=== PATIENT | male | born 1965 | race Caucasian/White ===

== ENCOUNTER 2018-05-22 14:52 | Inpatient (IN) | payer OTHER ==
[~2018-05-22] VITALS: Ht 170.2 cm; Wt 102.5 kg
[2018-05-22 16:35] VITALS: BP 127/74; PULSE 49; TEMP 36.9; O2SAT 97; Ht 170.2 cm; Wt 102.5 kg
--- NOTE | 2018-05-22 16:44 | Oncology Consultation ---
Oncology/Heme Consultation Date of Consultation: May 22, 2018. Attending Physician: Caden Tolentino D.O. Reason for Consultation: Immune thrombocytopenia purpura History of Present Illness Mr. Sen is a 53 year old man with a history of ITP treated in 2000. He received prednisone for an extended duration and had a complete response. He has been in remission until 05/17, when he presented with about a week of bleeding and petechiae and had a platelet count of 3K. He was bleeding and received multiple platelet transfusions, which were ineffective. He then received 4 daily doses of dexamethasone 40 mg PO. This raised his platelet count to 54K by 05/18. He was discharged and presented to my office for follow up today. He had a repeat CBC drawn that revealed a platelet count of 2K. I reviewed his smear and he had no platelet clumps or evidence of schistocytosis. He is not bleeding today and reports no nuisance bleeding, petechiae, or purpura. Social History Smoking Status: Never Smoker Drug Use: none Marital Status: Occupation Status: employed Allergies Coded Allergies: No Known Allergies (Verified , 12/16/02) Home Medications Scheduled Dexamethasone (Dexamethasone), 40 MG PO DAILY Review of Systems Constitutional: No fever, No fatigue ENT: No unusual epistaxis Respiratory: No cough, No hemoptysis Cardiovascular: No chest pain Abdomen: No pain, No nausea, No GI bleeding Musculoskeletal: No joint pain, No muscle pain Genitourinary - Male: No hematuria Neurologic: No weakness, No numbness/tingling Hematologic / Lymphatic: No abnormal bleeding/bruising Integumentary: No rash Physical Exam General Appearance: WD/WN, no apparent distress ENT: pharynx normal Respiratory/Chest: lungs clear Cardiovascular: regular rate, rhythm Abdomen/GI: non tender, soft Extremities/Musculoskelatal: no pedal edema Neurologic/Psych: no motor/sensory deficits, alert, oriented x 3 Skin: no rash Assessment & Plan 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 At this point, his best options for a long-lasting remission would be either splenectomy or, if he should refuse, Rituxan. Splenectomy tends to be more efficacious and to lead to longer-lasting remissions. Rituxan is best studied in patients who have undergone splenectomy, though there are data from smaller studies showing response rates in the pre- splenectomy population with occasional long-term remissions. He is young and generally healthy and I would prefer splenectomy in his case, but we can discuss this after we get his platelets up. I ordered IVIG 100 g IV x1. We may need to repeat the dose tomorrow or Friday, depending upon his response. I contacted the pharmacy and they will get started with this JOSE. He will need daily platelet counts and we should keep him admitted until we can confirm stable counts in the range above 30K. Platelet transfusions are generally ineffectual in patients with ITP and should be avoided, except in the setting of life-threatening hemorrhage. If he should bleed, I would consider high-dose IV Solu-Medrol. However, IVIG is generally very effective in this context, though the benefit does not last long.
[2018-05-22] MEDS ORDERED: ACETAMINOPHEN 325 MG TAB PO PRN (17:15)
[2018-05-22] MEDS ORDERED: ONDANSETRON INJ 2 MG/ML 2 ML VIAL IV PRN (17:15)
[2018-05-22] MEDS ORDERED: ZOLPIDEM TARTRATE 5 MG TAB PO PRN (17:15)
--- NOTE | 2018-05-22 17:20 | History and Physical ---
History & Physical Date & Time of Service: May 22, 2018 at 17:17 Chief Complaint: ITP Primary Care Physician: Lucien Lobo M.D. History of Present Illness Source: patient, spouse 53 yo M with PMHX of ITP since 2000, HLD, GERD presenting as direct admit from cancer center due to acute thrombocytopenia. Recently discharged from [facility] after course of daily dexamethasone, and on day of discharge 05/18 count was 54K. Today in Dr. Wilhelm's office had repeat CBC which showed a platelet count of 2K. At present, pt is accompanied by spouse, family and friends. C/o bruising under his right upper arm as well as on right palm. Past Medical/Surgical History Medical Problems: (1) Chronic ITP (idiopathic thrombocytopenic purpura) (2) Thrombocytopenia Social History Smoking Status: Never Smoker Drug Use: none Marital Status: Housing status: lives with family Occupational Status: employed Immunizations History of Influenza Vaccine: Unknown History of Tetanus Vaccine?: Unknown History of Pneumococcal: Unknown History of Hepatitis B Vaccine: Unknown Allergies Coded Allergies: No Known Allergies (Verified , 12/16/02) Home Medications Scheduled Dexamethasone (Dexamethasone), 40 MG PO DAILY Review of Systems ROS See HPI for pertinent positives and negatives. Otherwise denies new headache, vision change, chest pain, dyspnea, abdominal pain, loose or bloody stools, dysuria, or numbness tingling in extremities. Physical Exam Vital Signs Date Time Temp Pulse Resp B/P (MAP) Pulse Ox O2 Delivery O2 Flow Rate FiO2 05/22/18 16:35 36.9 49 18 127/74 97 Room Air GENERAL: Awake, alert, well-appearing, in no distress HENT: Normocephalic, atraumatic. EYES: Normal conjunctiva. Sclera non-icteric. NECK: Supple. Full range of motion. no JVD RESPIRATORY: Clear to auscultation. CARDIAC: Regular rate, normal rhythm. Extremities warm and well perfused. Pulses equal. ABDOMEN: Soft, non-distended. No tenderness to palpation. No rebound or guarding. No masses. LOWER EXTREMITIES: Calves are equal size bilaterally and non-tender. No edema. No discoloration. NEURO: No motor deficits noted. SKIN: + purpura/bruising on medial right upper forearm and right palm Impression Assessment and Plan 53 yo M with PMHX of ITP since 2001, HLD, GERD presenting as direct admit from cancer center due to acute thrombocytopenia. 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 Steroid refractory ITP, thrombocytopenia - IVIG 100gm run at 60 ml/hr for 30 min, if tolerated may increase gradually to a max of 480 ml/hr. - Options for second line therapy include splenectomy, rituximab, and thrombopoietin receptor agonists (TPO-Teresa). - per Hem/Onc management GERD - not currently on home medication - zantac prn HLD - not on chronic medications - low fat diet DVT: contraindicated due to low risk of clotting and very high risk of bleeding from chemical/mechanical anticoagulant means FEN/GI: regular diet. No fluids at this time. Dispo: med/surg Resident Physician Supervision Note: I was present with Dr. Andrews during the history and exam. I discussed the case with the resident and agree with the findings and plan as documented in the note. I also discussed the case with senior energy consultant at the time of admission. Patient without complaints. EXAM GEN: NAD. CV: regular RESP: CTA. Non labored respirations. ABD: non tender EXT: no edema. IMPRESSION/PLAN Steroid refractory ITP, thrombocytopenia I agree with plan as noted above. IVIG PLT transfusion and high dose IV steroids if evidence of bleeding. Discussed splenectomy as potential treatment once PLT count is normalized. Documented By: Caden Tolentino Advanced Directives Existing Living Will: No Existing Power of Learning Support Aide: No Resuscitation Status FULL VTE Prophylaxis Will order VTE Prophylaxis: No Reason for no VTE drug order: Contraindicated Reason no Mechanical VTE Order: Treatment not indicated Resident Tracking Resident Involvement: Resident Care Provided Care Provided: Adult Hospital Medicine
[2018-05-22] MEDS ORDERED: RANITIDINE HCL 150 MG TAB PO PRN (18:00)
[2018-05-22 18:02] VITALS: BP 131/85; PULSE 64; TEMP 36.8; O2SAT 98
[2018-05-22] MEDS: RANITIDINE HCL 150 MG TAB PO SCH (21:04)
[2018-05-22 23:13] VITALS: BP 111/73; PULSE 49; TEMP 37; O2SAT 96
[2018-05-23 07:19] VITALS: BP 113/71; PULSE 18; PULSE 51; TEMP 36.7; O2SAT 95
[2018-05-23 07:51] LABS: HEMATOCRIT 39.6 % (42-52); HEMOGLOBIN 13.6 g/dL (14.0-18.0); MEAN CELL VOLUME 86.3 fL (80-100); MEAN CORPUSCULAR HEMOGLOBIN 29.6 pg (25-34); MEAN CORPUSCULAR HGB CONC 34.3 g/dl (32-36); PLATELET COUNT 2 K/uL (130-400); RED CELL DISTRIBUTION WIDTH CV 13.5 % (11.5-14.5); RED CELL DISTRIBUTION WIDTH SD 42.2 fL (36.4-46.3); WHITE BLOOD COUNT 8.49 K/uL (4.8-10.8)
[2018-05-23] MEDS: RANITIDINE HCL 150 MG TAB PO SCH ×2 (07:51→20:43)
[2018-05-23 07:56] LABS: CREATININE 1.12 mg/dl (0.60-1.40)
[2018-05-23] MEDS ORDERED: DEXAMETHASONE 4 MG TAB PO SCH (09:00)
[2018-05-23] MEDS: METHYLPREDNISOLONE IV 60 MG in SYRINGE 0 ML IV SCH ×2 (10:31→20:43)
--- NOTE | 2018-05-23 10:59 | HEME/ONC PROGRESS NOTE ---
DATE: 05/23/2018 DIAGNOSIS: Refractory ITP. SUBJECTIVE: I had the pleasure of visiting with Yayo at bedside today. He received a course of IVIG overnight. Platelet count remains 2000. Clinically, he feels well and surprisingly showing no cutaneous signs of severe thrombocytopenia. I was contacted by the resident helping with his care and recommended addition of Solu-Medrol and an additional dose of IVIG. Long-term Dr. Wilhelm is planning for the patient to undergo a splenectomy. He feels well otherwise and offers no complaints. PHYSICAL EXAMINATION: GENERAL: He is in no acute distress. VITAL SIGNS: Temperature 36.7, pulse 51, respiratory rate 18, blood pressure 113/71. SKIN: Without rash or lesion. HEENT: Oral mucosa without palatal petechiae. NECK: Supple. HEART: Regular rate and rhythm. LUNGS: Clear to auscultation bilaterally. ABDOMEN: Soft, nontender, nondistended. EXTREMITIES: No clubbing, cyanosis or edema. NEUROLOGIC: Grossly intact. LABORATORY DATA: WBC count 8490, hemoglobin 13.6, platelet count 2000. Sodium 138, potassium 4.0, chloride 105, carbon dioxide 29, creatinine 1.12, BUN 16. IMPRESSION: Refractory immune thrombocytopenic purpura. PLAN: Yayo was seen by Dr. Wilhelm in the office yesterday, and unfortunately, his platelets plummeted despite receiving high-dose dexamethasone days prior. According to Dr. Wilhelm, Mr. Sen did initially respond; however, it is customary with many of these patients' relapses inevitable. Platelet count did not budge with initial course of IVIG and we will administer second course today and incorporate intravenous Solu-Medrol as well. Again, Dr. Wilhelm is planning surgical consultation for prophylactic splenectomy. Dr. Wilhelm will return tomorrow. Continue to follow his counts daily. If there is suspicion of bleeding, it would be reasonable to check his H and H every 12 hours. Overall, Yayo seems to be doing reasonably well and do not expect any difficulties. CHUY
[2018-05-23 13:32] LABS: HEMATOCRIT 38.4 % (42-52); HEMOGLOBIN 13.8 g/dL (14.0-18.0); MEAN CELL VOLUME 86.9 fL (80-100); MEAN CORPUSCULAR HEMOGLOBIN 31.2 pg (25-34); MEAN CORPUSCULAR HGB CONC 35.9 g/dl (32-36); NUCLEATED RED BLOOD CELL ABS 0.03 K/uL (0-0); PLATELET COUNT 3 K/uL (130-400); RED CELL DISTRIBUTION WIDTH CV 13.4 % (11.5-14.5); RED CELL DISTRIBUTION WIDTH SD 42.6 fL (36.4-46.3); WHITE BLOOD COUNT 8.83 K/uL (4.8-10.8)
[2018-05-23 15:28] VITALS: BP 133/79; PULSE 56; TEMP 36.7; O2SAT 97
--- NOTE | 2018-05-23 18:16 | Family Medicine Progress Note ---
Progress Note Date of Service May 23, 2018. Subjective SCAR overnight. Resting in bed. at bedside. Tolerating PO. Tolerating IVIG with no issues. ROS See HPI for pertinent positives and negatives. Otherwise denies new headache, vision change, chest pain, dyspnea, abdominal pain, bloody stools, or numbness tingling in extremities. Medications Current Inpatient Medications Medications (Trade) Dose Ordered Sig/Kristine Route Start Time Stop Time Status Last Admin Dose Admin Acetaminophen (Tylenol Tab) 650 mg Q4H PRN PO 05/22/18 17:15 06/21/18 17:14 Al Hydrox/Mg Hydrox/Simethicone (Maalox Max Susp) 15 ml Q4H PRN PO 05/22/18 17:15 06/21/18 17:14 Ondansetron HCl (Zofran Inj) 4 mg Q6H PRN IV 05/22/18 17:15 06/21/18 17:14 05/22/18 18:54 4 MG Zolpidem Tartrate (Ambien Tab) 5 mg HSZ PRN PO 05/22/18 17:15 06/21/18 17:14 Diphenhydramine HCl (Benadryl Cap) 25 mg Q4HWA PRN PO 05/22/18 18:00 06/21/18 17:59 Ranitidine HCl (zANTac TAB) 150 mg BID PO 05/22/18 21:00 06/21/18 17:59 05/23/18 07:51 150 MG Methylprednisolone Sodium Succinate 60 mg/Syringe 0.96 ml @ 1.5 mls/min BID IV 05/23/18 09:00 06/22/18 08:59 05/23/18 10:31 1.5 MLS/MIN Objective Vital Signs Date Time Temp Pulse Resp B/P (MAP) Pulse Ox O2 Delivery O2 Flow Rate FiO2 05/23/18 16:30 Room Air 05/23/18 15:28 36.7 56 18 133/79 (97) 97 Room Air 05/23/18 08:30 Room Air 05/23/18 07:19 36.7 51 18 113/71 (85) 95 Room Air 05/23/18 00:30 Room Air 05/22/18 23:13 37.0 49 18 111/73 (86) 96 Room Air Physical Exam Notes: GENERAL: Awake, alert, well-appearing, in no distress HENT: Normocephalic, atraumatic. EYES: Normal conjunctiva. Sclera non-icteric. NECK: Supple. Full range of motion. no JVD RESPIRATORY: Clear to auscultation. CARDIAC: Regular rate, normal rhythm. Extremities warm and well perfused. Pulses equal. ABDOMEN: Soft, non-distended. No tenderness to palpation. No rebound or guarding. No masses. NEURO: No motor deficits noted. SKIN: + purpura/bruising on medial right upper forearm and right palm Laboratory Results 05/23/18 12:48 05/23/18 06:28 Test 05/23/18 06:28 05/23/18 12:48 Prothrombin Time 10.0 SECONDS (9.0-12.0) Prothromb Time International Ratio 1.0 (0.9-1.1) Anion Gap 4.0 mmol/L (3-11) Est Creatinine Clear Calc Drug Dose 89.0 ml/min Estimated GFR () 87.7 Estimated GFR (Non- 75.7 BUN/Creatinine Ratio 13.9 (10-20) Calcium Level 8.0 mg/dl (8.5-10.1) Red Blood Count 4.42 M/uL (4.7-6.1) Mean Corpuscular Volume 86.9 fL (80-100) Mean Corpuscular Hemoglobin 31.2 pg (25-34) Mean Corpuscular Hemoglobin Concent 35.9 g/dl (32-36) RDW Standard Deviation 42.6 fL (36.4-46.3) RDW Coefficient of Variation 13.4 % (11.5-14.5) Nucleated RBC Absolute Count (auto) 0.03 K/uL (0-0) Nucleated Red Blood Cells % 0.4 % Assessment and Plan 53 yo M with PMHX of ITP since 2000, HLD, GERD presenting as direct admit from cancer center due to acute thrombocytopenia. 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 Steroid refractory ITP, thrombocytopenia - Per onc recs, ordered second round of IVIG 100gm today. - IV solumedrol 60mg q8h - Options for second line therapy include splenectomy, rituximab, and thrombopoietin receptor agonists (TPO-Teresa). GERD - not currently on home medication - zantac 150 mg PO BID to prophylax as well HLD - not on chronic medications - low fat diet DVT: contraindicated due to low risk of clotting and very high risk of bleeding from chemical/mechanical anticoagulant means FEN/GI: regular diet. No fluids indicated at this time. Dispo: med/surg Resident Physician Supervision Note: I was present with Dr. Andrews during the history and exam. I discussed the case with the resident and agree with the findings and plan as documented in the note. Any exceptions or clarifications are listed here: 53 y/o male with history of ITP admitted with profound thrombocytopenia, minimal improvement S/P one dose of IVIG. PLAN 1) second dose IVIG 100g today. 2) Add IV steroids 3) Continue H2B 4) Discuss with hematology Documented By: Caden Tolentino Continued [facility] stay due to: multiple IV medications needed Resident Tracking Resident Involvement: Resident Care Provided Care Provided: Adult Hospital Medicine
[2018-05-24] VITALS: BP 125/73; PULSE 59; TEMP 36.7; O2SAT 98
[2018-05-24 07:27] VITALS: BP 123/77; PULSE 68; TEMP 36.5; O2SAT 95
[2018-05-24 07:48] LABS: HEMATOCRIT 39.6 % (42-52); HEMOGLOBIN 13.7 g/dL (14.0-18.0); MEAN CELL VOLUME 86.1 fL (80-100); MEAN CORPUSCULAR HEMOGLOBIN 29.8 pg (25-34); MEAN CORPUSCULAR HGB CONC 34.6 g/dl (32-36); PLATELET COUNT 10 K/uL (130-400); RED CELL DISTRIBUTION WIDTH CV 13.3 % (11.5-14.5); RED CELL DISTRIBUTION WIDTH SD 41.4 fL (36.4-46.3); WHITE BLOOD COUNT 17.54 K/uL (4.8-10.8)
[2018-05-24 07:54] LABS: CALCIUM 8.3 mg/dl (8.5-10.1); CREATININE 1.2 mg/dl (0.60-1.40); POTASSIUM 4.2 mmol/L (3.5-5.1)
[2018-05-24] MEDS: METHYLPREDNISOLONE IV 60 MG in SYRINGE 0 ML IV SCH ×2 (08:24→21:17)
[2018-05-24] MEDS: RANITIDINE HCL 150 MG TAB PO SCH ×2 (08:24→21:18)
--- NOTE | 2018-05-24 10:42 | Hematology/Oncology Prog Note ---
Hematology/Onc Progress Note Date of Service May 24, 2018. Diagnoses Refractory ITP Medications Medications Administered Medications (Trade) Dose Ordered Sig/Kristine Route Start Time Stop Time Status Last Admin Dose Admin Immune Globulin 20 gm/Empty Bag 200 ml @ 0 mls/hr 1700,1800,1900,2000,2100 IV 05/22/18 17:00 05/22/18 23:59 DC 05/22/18 23:00 480 MLS/HR Ondansetron HCl (Zofran Inj) 4 mg Q6H PRN IV 05/22/18 17:15 06/21/18 17:14 05/22/18 18:54 4 MG Ranitidine HCl (zANTac TAB) 150 mg BID PO 05/22/18 21:00 06/21/18 17:59 05/24/18 08:24 150 MG Immune Globulin 20 gm/Empty Bag 200 ml @ 0 mls/hr TODAY@1000,1100,1200,1300,1400 IV 05/23/18 10:00 05/23/18 14:01 DC 05/23/18 16:19 200 MLS/HR Methylprednisolone Sodium Succinate 60 mg/Syringe 0.96 ml @ 1.5 mls/min BID IV 05/23/18 09:00 06/22/18 08:59 05/24/18 08:24 1.5 MLS/MIN Subjective Mr. Sen is looking well. He denies any bleeding or excessive bruising. He received a second dose of IVIG yesterday and started IV steroids. Review of Systems: Constitutional: No weakness, No fatigue ENT: No unusual epistaxis Respiratory: No cough, No shortness of breath, No hemoptysis Cardiovascular: No chest pain Abdomen: No pain, No GI bleeding Male : No hematuria Neurologic: No weakness Heme: No abnormal bleeding/bruising Vital Signs Vital Signs Past 12 Hours Date Time Temp Pulse Resp B/P (MAP) Pulse Ox O2 Delivery O2 Flow Rate FiO2 05/24/18 09:15 Room Air 05/24/18 07:27 36.5 68 18 123/77 (92) 95 Room Air 05/24/18 00:00 36.7 59 20 125/73 (90) 98 Room Air 05/24/18 00:00 Room Air Physical Exam Constitutional: General Apperance: heathly-appearing Level of Distress: NAD Psychiatric: Mental Status: active & alert Orientation: oriented except where noted ENMT: pharynx normal (no purpura) Lungs: Auscuitation: breath sounds normal Cardiovascular: Heart Auscultation: RRR Abdomen: Inspection & Palpation: soft, no tenderness, guarding & rebound Extremities: no edema Laboratory Last 24 Hours Test 05/23/18 12:48 05/24/18 07:00 White Blood Count 8.83 K/uL 17.54 K/uL Red Blood Count 4.42 M/uL 4.60 M/uL Hemoglobin 13.8 g/dL 13.7 g/dL Hematocrit 38.4 % 39.6 % Mean Corpuscular Volume 86.9 fL 86.1 fL Mean Corpuscular Hemoglobin 31.2 pg 29.8 pg Mean Corpuscular Hemoglobin Concent 35.9 g/dl 34.6 g/dl RDW Standard Deviation 42.6 fL 41.4 fL RDW Coefficient of Variation 13.4 % 13.3 % Platelet Count 3 K/uL 10 K/uL Nucleated RBC Absolute Count (auto) 0.03 K/uL Nucleated Red Blood Cells % 0.4 % Sodium Level 136 mmol/L Potassium Level 4.2 mmol/L Chloride Level 107 mmol/L Carbon Dioxide Level 23 mmol/L Anion Gap 6.0 mmol/L Blood Urea Nitrogen 30 mg/dl Creatinine 1.20 mg/dl Est Creatinine Clear Calc Drug Dose 83.1 ml/min Estimated GFR () 80.7 Estimated GFR (Non- 69.6 BUN/Creatinine Ratio 25.4 Random Glucose 104 mg/dl Calcium Level 8.3 mg/dl Assessment & Plan His platelets are up a bit, which is encouraging. We should see the full effect of the IVIG in the next 24-48 hours. If he rises to a point where surgery is feasible, I would plan on splenectomy. If that does not happen, we will need to consider other options, like Rituxan or TPO agonists. We can continue with the steroids for now. Please continue daily platelet counts and avoid transfusions except in life-threatening emergencies.
--- NOTE | 2018-05-24 14:43 | Family Medicine Progress Note ---
Progress Note Date of Service May 24, 2018. Subjective Pt conversant, sitting over side of bed, friends/family at bedside. Tolerating PO. Denies new bleeding or bloody stools. Says IVIG made him nauseous yesterday but that is now resolved. Tolerating PO. ROS See HPI for pertinent positives and negatives. Otherwise denies new headache, vision change, chest pain, dyspnea, or abdominal pain. Medications Current Inpatient Medications Medications (Trade) Dose Ordered Sig/Kristine Route Start Time Stop Time Status Last Admin Dose Admin Acetaminophen (Tylenol Tab) 650 mg Q4H PRN PO 05/22/18 17:15 06/21/18 17:14 Al Hydrox/Mg Hydrox/Simethicone (Maalox Max Susp) 15 ml Q4H PRN PO 05/22/18 17:15 06/21/18 17:14 Ondansetron HCl (Zofran Inj) 4 mg Q6H PRN IV 05/22/18 17:15 06/21/18 17:14 05/22/18 18:54 4 MG Zolpidem Tartrate (Ambien Tab) 5 mg HSZ PRN PO 05/22/18 17:15 06/21/18 17:14 Diphenhydramine HCl (Benadryl Cap) 25 mg Q4HWA PRN PO 05/22/18 18:00 06/21/18 17:59 Ranitidine HCl (zANTac TAB) 150 mg BID PO 05/22/18 21:00 06/21/18 17:59 05/24/18 08:24 150 MG Methylprednisolone Sodium Succinate 60 mg/Syringe 0.96 ml @ 1.5 mls/min BID IV 05/23/18 09:00 06/22/18 08:59 05/24/18 08:24 1.5 MLS/MIN Objective Vital Signs Date Time Temp Pulse Resp B/P (MAP) Pulse Ox O2 Delivery O2 Flow Rate FiO2 05/24/18 09:15 Room Air 05/24/18 07:27 36.5 68 18 123/77 (92) 95 Room Air 05/24/18 00:00 36.7 59 20 125/73 (90) 98 Room Air 05/24/18 00:00 Room Air 05/23/18 16:30 Room Air 05/23/18 15:28 36.7 56 18 133/79 (97) 97 Room Air Physical Exam Notes: GENERAL: Awake, alert, well-appearing, in no distress HENT: Normocephalic, atraumatic. EYES: Normal conjunctiva. Sclera non-icteric. NECK: Supple. Full range of motion. RESPIRATORY: Clear to auscultation. CARDIAC: Regular rate, normal rhythm. Extremities warm and well perfused. Pulses equal. ABDOMEN: Soft, non-distended. No tenderness to palpation. No rebound or guarding. No masses. NEURO: No motor deficits noted. SKIN: + purpura/bruising on medial right upper forearm and right palm Laboratory Results 05/24/18 07:00 05/24/18 07:00 Test 05/24/18 07:00 Red Blood Count 4.60 M/uL (4.7-6.1) Mean Corpuscular Volume 86.1 fL (80-100) Mean Corpuscular Hemoglobin 29.8 pg (25-34) Mean Corpuscular Hemoglobin Concent 34.6 g/dl (32-36) RDW Standard Deviation 41.4 fL (36.4-46.3) RDW Coefficient of Variation 13.3 % (11.5-14.5) Anion Gap 6.0 mmol/L (3-11) Est Creatinine Clear Calc Drug Dose 83.1 ml/min Estimated GFR () 80.7 Estimated GFR (Non- 69.6 BUN/Creatinine Ratio 25.4 (10-20) Calcium Level 8.3 mg/dl (8.5-10.1) Assessment and Plan 53 yo M with PMHX of ITP since 2000, HLD, GERD presenting as direct admit from cancer center due to acute thrombocytopenia. 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 Steroid refractory ITP, thrombocytopenia - s/p IVIG 1 gm x 2. Tolerated well. PLT increased to 10 which is expected transitory increase. - IV solumedrol 60mg q8h - Per discussion with hem/onc, awaiting curative splenectomy - goal plt count to be at least 50K. Will continue to monitor. GERD - zantac 150 mg PO BID HLD - not on chronic medications - low fat diet DVT: contraindicated due to low risk of clotting and very high risk of bleeding from chemical/mechanical anticoagulant means FEN/GI: regular diet. No fluids indicated at this time. Dispo: med/surg Resident Physician Supervision Note: I was present with Dr. Andrews during the history and exam. I discussed the case with the resident and agree with the findings and plan as documented in the note. Any exceptions or clarifications are listed here: He feels much better today; the fatigue and nausea that he had yesterday has resolved, he thinks it may been secondary to the IVIG. His platelet count is up to 10. IMP ITP PLAN Continue IV steroids Continue H2 tad Current plan is for splenectomy We will discuss and/or consult general surgery early next week Documented By: Caden Tolentino Continued [facility] stay due to: multiple IV medications needed Resident Tracking Resident Involvement: Resident Care Provided Care Provided: Adult Hospital Medicine
[2018-05-24 15:00] VITALS: BP 130/78; PULSE 60; TEMP 36.5; O2SAT 97
[2018-05-24 23:00] VITALS: BP 148/67; PULSE 60; TEMP 36.7; O2SAT 97
[2018-05-25 07:54] VITALS: BP 123/74; PULSE 57; TEMP 36.7; O2SAT 97
[2018-05-25 07:56] LABS: HEMATOCRIT 38.7 % (42-52); HEMOGLOBIN 13.4 g/dL (14.0-18.0); MEAN CELL VOLUME 87.6 fL (80-100); MEAN CORPUSCULAR HEMOGLOBIN 30.3 pg (25-34); MEAN CORPUSCULAR HGB CONC 34.6 g/dl (32-36); PLATELET COUNT 6 K/uL (130-400); RED CELL DISTRIBUTION WIDTH CV 13.7 % (11.5-14.5); RED CELL DISTRIBUTION WIDTH SD 44.1 fL (36.4-46.3); WHITE BLOOD COUNT 16.93 K/uL (4.8-10.8)
[2018-05-25 08:07] LABS: BASO % 0.1 %; BASO ABS # 0.01 K/uL (0-0.2); LYMPH % 5.7 %; LYMPH ABS # 0.96 K/uL (1.2-3.4); MONO % 4.7 %; MONO ABS # 0.79 K/uL (0.11-0.59); NEUT % 87.7 %; NEUT ABS # 14.87 K/uL (1.4-6.5)
[2018-05-25] MEDS: RANITIDINE HCL 150 MG TAB PO SCH ×2 (08:19→21:09)
[2018-05-25] MEDS: METHYLPREDNISOLONE IV 60 MG in SYRINGE 0 ML IV SCH ×2 (08:19→21:09)
--- NOTE | 2018-05-25 09:59 | HEME/ONC PROGRESS NOTE ---
DATE: 05/25/2018 DIAGNOSIS: Refractory ITP. SUBJECTIVE: Yayo was seen and examined at bedside again today. He is on hospital day #3 with refractory ITP. Over the weekend, received a combination of intravenous immunoglobulin and continues on IV corticosteroids. I was optimistic when I saw his platelet count rise to 10,000, but unfortunately has retreated to 6000 this morning. Yayo is Dr. Wilhelm's patient and I believe the plan moving forward is a laparoscopic splenectomy at this point. I will ask the primary service to request Dr. Valenzuela perform the procedure. Clinically, he continues to feel well and is devoid of complaint. PHYSICAL EXAMINATION: GENERAL: He is in no acute distress. VITAL SIGNS: Temperature 36.7, pulse 57, respiratory rate 18, blood pressure 123/74. SKIN: Without rash or lesion. HEENT: Oral mucosa without erythema or ulceration. NECK: Supple. HEART: Regular rate and rhythm. LUNGS: Clear to auscultation bilaterally. ABDOMEN: Soft, nontender, nondistended. EXTREMITIES: No clubbing, cyanosis or edema. NEUROLOGIC: Grossly intact. LABORATORY DATA: WBC count 16,930; hemoglobin 13.4; platelet count 6000. Sodium 136, potassium 4.2, chloride 107, carbon dioxide 23, BUN 30, creatinine 1.20. These chemistries are actually from 05/24/2018. IMPRESSION: Refractory ITP. PLAN: We will ask Dr. Valenzuela to visit with Yayo and his today to discuss laparoscopic splenectomy. Yayo has received 2 courses of IVIG and has been on Solu-Medrol for the past 24 hours. I anticipate a transient rise. It will be up to Dr. Valenzuela and his comfort level on moving forward with surgery when platelets are consistently on the rise. Unfortunately, the recovery of platelets is unpredictable and conceivably this gentleman may oscillate for several days. We will continue to follow him during his hospital stay. Thank you for assisting us in the care of this very pleasant gentleman. CHUY
--- NOTE | 2018-05-25 13:09 | Family Medicine Progress Note ---
Progress Note Date of Service May 25, 2018. Subjective Pt is understandably frustrated today given plt count going from 10 yesterday to 6 today. He asks questions about treatment, asks what he was given at last admission that worked so well and why this is taking longer this time. I discussed his lab results, and we looked at last admission's labs as well. Explained that steroids are similar across classes. ROS See HPI for pertinent positives and negatives. Otherwise denies loose or bloody stools Medications Current Inpatient Medications Medications (Trade) Dose Ordered Sig/Kristine Route Start Time Stop Time Status Last Admin Dose Admin Acetaminophen (Tylenol Tab) 650 mg Q4H PRN PO 05/22/18 17:15 06/21/18 17:14 Al Hydrox/Mg Hydrox/Simethicone (Maalox Max Susp) 15 ml Q4H PRN PO 05/22/18 17:15 06/21/18 17:14 Ondansetron HCl (Zofran Inj) 4 mg Q6H PRN IV 05/22/18 17:15 06/21/18 17:14 05/22/18 18:54 4 MG Zolpidem Tartrate (Ambien Tab) 5 mg HSZ PRN PO 05/22/18 17:15 06/21/18 17:14 Diphenhydramine HCl (Benadryl Cap) 25 mg Q4HWA PRN PO 05/22/18 18:00 06/21/18 17:59 Ranitidine HCl (zANTac TAB) 150 mg BID PO 05/22/18 21:00 06/21/18 17:59 05/25/18 08:19 150 MG Methylprednisolone Sodium Succinate 60 mg/Syringe 0.96 ml @ 1.5 mls/min BID IV 05/23/18 09:00 06/22/18 08:59 05/25/18 08:19 1.5 MLS/MIN Objective Vital Signs Date Time Temp Pulse Resp B/P (MAP) Pulse Ox O2 Delivery O2 Flow Rate FiO2 05/25/18 08:00 Room Air 05/25/18 07:54 36.7 57 18 123/74 (90) 97 Room Air 05/25/18 00:00 Room Air 05/24/18 23:00 36.7 60 18 148/67 (94) 97 Room Air 05/24/18 16:15 Room Air 05/24/18 15:00 36.5 60 16 130/78 (95) 97 Room Air Physical Exam Notes: GENERAL: Awake, alert, well-appearing. HENT: Normocephalic, atraumatic. EYES: Normal conjunctiva. Sclera non-icteric. EOMI NECK: Supple. Full range of motion. no JVD RESPIRATORY: normal work of breathing NEURO: No motor deficits noted. SKIN: No rash or jaundice noted. Laboratory Results 05/25/18 07:12 Red Blood Count 4.42, Mean Corpuscular Volume 87.6, Mean Corpuscular Hemoglobin 30.3, Mean Corpuscular Hemoglobin Concent 34.6, Neutrophils (%) (Auto) 87.7, Lymphocytes (%) (Auto) 5.7, Monocytes (%) (Auto) 4.7, Eosinophils (%) (Auto) 0.0 , Basophils (%) (Auto) 0.1, Neutrophils # (Auto) 14.87, Lymphocytes # (Auto) 0.96, Monocytes # (Auto) 0.79, Eosinophils # (Auto) 0.00, Basophils # (Auto) 0.01 Test 05/25/18 07:12 White Blood Count 16.93 K/uL (4.8-10.8) Red Blood Count 4.42 M/uL (4.7-6.1) Hemoglobin 13.4 g/dL (14.0-18.0) Hematocrit 38.7 % (42-52) Mean Corpuscular Volume 87.6 fL (80-100) Mean Corpuscular Hemoglobin 30.3 pg (25-34) Mean Corpuscular Hemoglobin Concent 34.6 g/dl (32-36) Platelet Count 6 K/uL (130-400) Neutrophils (%) (Auto) 87.7 % Lymphocytes (%) (Auto) 5.7 % Monocytes (%) (Auto) 4.7 % Eosinophils (%) (Auto) 0.0 % Basophils (%) (Auto) 0.1 % Neutrophils # (Auto) 14.87 K/uL (1.4-6.5) Lymphocytes # (Auto) 0.96 K/uL (1.2-3.4) Monocytes # (Auto) 0.79 K/uL (0.11-0.59) Eosinophils # (Auto) 0.00 K/uL (0-0.5) Basophils # (Auto) 0.01 K/uL (0-0.2) RDW Standard Deviation 44.1 fL (36.4-46.3) RDW Coefficient of Variation 13.7 % (11.5-14.5) Immature Granulocyte % (Auto) 1.8 % Immature Granulocyte # (Auto) 0.30 K/uL (0.00-0.02) Platelet Estimate SIGNIFIC DECREASED Assessment and Plan 53 yo M with PMHX of ITP since 2000, HLD, GERD presenting as direct admit from cancer center due to acute thrombocytopenia. 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 Steroid refractory ITP, thrombocytopenia - s/p IVIG 1 gm x 2. - currently plt are 6. Yesterday was 10. Per heme/onc plt's expected to vascillate, IVIG effect transitory however. Order placed for consult to gen surg - Dr. Valenzuela, for curative splenectomy. - continue IV solumedrol 60mg BID per heme/onc - awaiting curative splenectomy - goal plt count to be at least 50K. Will continue to monitor. GERD - zantac 150 mg PO BID HLD - not on chronic medications - low fat diet DVT: contraindicated due to low risk of clotting and very high risk of bleeding from chemical/mechanical anticoagulant means FEN/GI: regular diet. No fluids indicated at this time. Dispo: med/surg Resident Physician Supervision Note: I interviewed and examined the patient. Discussed with Dr. Andrews and agree with findings and plan as documented in the note. Any exceptions or clarifications are listed here: None Documented By: Juan Askew feeling ok physically, but very frustrated with lack of progress vitals noted nad breathing unlabored bruising noted recurrent/refractory ITP - probable splenectomy once plt rebound. otherwise as above. offered empathy and support Continued [facility] stay due to: other (severe thrombocytopenia) Resident Tracking Resident Involvement: Resident Care Provided Care Provided: Adult Hospital Medicine
[2018-05-25 15:39] VITALS: BP 129/72; PULSE 60; TEMP 36.8; O2SAT 95
--- NOTE | 2018-05-25 15:49 | Medical Consult ---
Consultation Date of Consultation: May 25, 2018. Attending Physician: Juan Askew D.O. History of Present Illness 53 y/o male with history of ITP 17 years ago responded to treatment with steroids and did have not any other symptoms or treatment until about 2 weeks ago when he became fatigued and easy bruising following a scuba dive. He was seen at [facility] and transferred to [facility] on 05/17 with plt 3,000. Responded to steroid treatment and discharged on oral Decadron on 05/18 with plt 54,000. Then readmitted on 05/22 during clinic visit with plt 2,000. Response to IVIG has been limited, he is now on IV solu-medrol. Past Medical/Surgical History Medical problems: ITP GERD Surgical history: right inguinal hernia right thumb partial amputation (traumatic) Social History Smoking Status: Never Smoker Drug Use: none Marital Status: Occupation Status: employed Allergies Coded Allergies: No Known Allergies (Verified , 12/16/02) Current Inpatient Medications Current Inpatient Medications Medications (Trade) Dose Ordered Sig/Kristine Route Start Time Stop Time Status Last Admin Dose Admin Acetaminophen (Tylenol Tab) 650 mg Q4H PRN PO 05/22/18 17:15 06/21/18 17:14 Al Hydrox/Mg Hydrox/Simethicone (Maalox Max Susp) 15 ml Q4H PRN PO 05/22/18 17:15 06/21/18 17:14 Ondansetron HCl (Zofran Inj) 4 mg Q6H PRN IV 05/22/18 17:15 06/21/18 17:14 05/22/18 18:54 4 MG Zolpidem Tartrate (Ambien Tab) 5 mg HSZ PRN PO 05/22/18 17:15 06/21/18 17:14 Diphenhydramine HCl (Benadryl Cap) 25 mg Q4HWA PRN PO 05/22/18 18:00 06/21/18 17:59 Ranitidine HCl (zANTac TAB) 150 mg BID PO 05/22/18 21:00 06/21/18 17:59 05/25/18 08:19 150 MG Methylprednisolone Sodium Succinate 60 mg/Syringe 0.96 ml @ 1.5 mls/min BID IV 05/23/18 09:00 06/22/18 08:59 05/25/18 08:19 1.5 MLS/MIN Review of Systems Constitutional: No fever, No chills Abdomen: No pain, No nausea, No GI bleeding Physical Exam Date Time Temp Pulse Resp B/P (MAP) Pulse Ox O2 Delivery O2 Flow Rate FiO2 05/25/18 08:00 Room Air 05/25/18 07:54 36.7 57 18 123/74 (90) 97 Room Air 05/25/18 00:00 Room Air 05/24/18 23:00 36.7 60 18 148/67 (94) 97 Room Air 05/24/18 16:15 Room Air General Appearance: WD/WN, no apparent distress Respiratory/Chest: no respiratory distress, no accessory muscle use Abdomen/GI: non tender, soft, no organomegaly Neurologic/Psych: alert, oriented x 3 Skin: normal color, warm/dry Laboratory Results Last 24 Hours Test 05/25/18 07:12 White Blood Count 16.93 K/uL Red Blood Count 4.42 M/uL Hemoglobin 13.4 g/dL Hematocrit 38.7 % Mean Corpuscular Volume 87.6 fL Mean Corpuscular Hemoglobin 30.3 pg Mean Corpuscular Hemoglobin Concent 34.6 g/dl Platelet Count 6 K/uL Neutrophils (%) (Auto) 87.7 % Lymphocytes (%) (Auto) 5.7 % Monocytes (%) (Auto) 4.7 % Eosinophils (%) (Auto) 0.0 % Basophils (%) (Auto) 0.1 % Neutrophils # (Auto) 14.87 K/uL Lymphocytes # (Auto) 0.96 K/uL Monocytes # (Auto) 0.79 K/uL Eosinophils # (Auto) 0.00 K/uL Basophils # (Auto) 0.01 K/uL RDW Standard Deviation 44.1 fL RDW Coefficient of Variation 13.7 % Immature Granulocyte % (Auto) 1.8 % Immature Granulocyte # (Auto) 0.30 K/uL Platelet Estimate SIGNIFIC DECREASED Assessment & Plan Refractory ITP Will discuss further with hematology. Would tentatively plan for laparoscopic splenectomy when platelets are at least 20,000 but hopefully will respond to again to >50,000.
[2018-05-25 16:00] VITALS: O2SAT 95
[2018-05-26] VITALS: BP 129/68; PULSE 54; TEMP 36.7; O2SAT 97
[2018-05-26 07:42] LABS: HEMATOCRIT 40.7 % (42-52); HEMOGLOBIN 13.6 g/dL (14.0-18.0); MEAN CELL VOLUME 87.5 fL (80-100); MEAN CORPUSCULAR HEMOGLOBIN 29.2 pg (25-34); MEAN CORPUSCULAR HGB CONC 33.4 g/dl (32-36); RED CELL DISTRIBUTION WIDTH SD 45.2 fL (36.4-46.3); WHITE BLOOD COUNT 15.49 K/uL (4.8-10.8)
[2018-05-26 07:45] VITALS: BP 127/73; PULSE 56; TEMP 36.7; O2SAT 96
[2018-05-26] MEDS: METHYLPREDNISOLONE IV 60 MG in SYRINGE 0 ML IV SCH ×2 (08:03→21:08)
[2018-05-26] MEDS: RANITIDINE HCL 150 MG TAB PO SCH ×2 (08:03→21:08)
[2018-05-26 08:11] LABS: PLATELET COUNT 3 K/uL (130-400)
[2018-05-26 08:12] LABS: BASO % 0.1 %; BASO ABS # 0.02 K/uL (0-0.2); IG# 0.45 K/uL (0.00-0.02); LYMPH % 8.3 %; LYMPH ABS # 1.29 K/uL (1.2-3.4); MONO % 5.7 %; MONO ABS # 0.89 K/uL (0.11-0.59); NEUT ABS # 12.84 K/uL (1.4-6.5)
--- NOTE | 2018-05-26 08:19 | HEME/ONC PROGRESS NOTE ---
DATE: 05/26/2018 DIAGNOSES: Refractory ITP. SUBJECTIVE: Yayo was seen and examined at bedside again today. Platelet count is pending at the time of the dictation. Appreciate general surgery's input. They are planning for laparoscopic splenectomy if and when the patient's platelets exceed 20,000. Yayo expressed some frustration with the refractoriness of his clinical situation. I asked him to be a bit more patience moving forward. Clinically, he is doing well, offers no complaints and there is no external evidence of bleeding. PHYSICAL EXAMINATION: GENERAL: He is in no acute distress. VITAL SIGNS: Temperature 36.7, pulse 56, respiratory rate 16, blood pressure 127/73. SKIN: Few scattered bruises, otherwise no rash. HEENT: Oral mucosa without erythema or ulceration. NECK: Supple. HEART: Regular rate and rhythm. LUNGS: Clear to auscultation. ABDOMEN: Soft, nontender, nondistended. EXTREMITIES: No calf tenderness or swelling. No clubbing, cyanosis or edema. NEUROLOGIC: Grossly intact. LABORATORY DATA: Platelet count pending. WBCs 15,490, hemoglobin 13.6. IMPRESSION: Refractory ITP. PLAN: Will move forward with laparoscopic splenectomy, continue corticosteroids as ordered. If his platelet count remains refractory, may consider WinRho transiently. Again, Yayo is a bit frustrated and asked him for a bit more patience as I am cautiously optimistic, his platelet count will meet threshold to undergo a safe procedure. We will visit with Yayo again tomorrow. Thank you again for assisting us in the care of this very pleasant gentleman.
[2018-05-26] MEDS ORDERED: NURSING VERBAL MED ORDER ONE (09:00)
--- NOTE | 2018-05-26 10:43 | Family Medicine Progress Note ---
Progress Note Date of Service May 26, 2018. Subjective Discussed with patient that his platelet count has gone back down to 3. He spoke with surgical service, he says they said they would consider a lower threshold for surgery. He says will be in later so she can be present for conversation with Heme/onc. Tolerating po, voiding appropriately. FOBT came back negative today. Denies any new bruising or bleeding ROS See HPI for pertinent positives and negatives. Otherwise denies new headache, loose or bloody stools. Medications Current Inpatient Medications Medications (Trade) Dose Ordered Sig/Kristine Route Start Time Stop Time Status Last Admin Dose Admin Acetaminophen (Tylenol Tab) 650 mg Q4H PRN PO 05/22/18 17:15 06/21/18 17:14 Al Hydrox/Mg Hydrox/Simethicone (Maalox Max Susp) 15 ml Q4H PRN PO 05/22/18 17:15 06/21/18 17:14 Ondansetron HCl (Zofran Inj) 4 mg Q6H PRN IV 05/22/18 17:15 06/21/18 17:14 05/22/18 18:54 4 MG Zolpidem Tartrate (Ambien Tab) 5 mg HSZ PRN PO 05/22/18 17:15 06/21/18 17:14 Diphenhydramine HCl (Benadryl Cap) 25 mg Q4HWA PRN PO 05/22/18 18:00 06/21/18 17:59 Ranitidine HCl (zANTac TAB) 150 mg BID PO 05/22/18 21:00 06/21/18 17:59 05/26/18 08:03 150 MG Methylprednisolone Sodium Succinate 60 mg/Syringe 0.96 ml @ 1.5 mls/min BID IV 05/23/18 09:00 06/22/18 08:59 05/26/18 08:03 1.5 MLS/MIN Romiplostim 102.5 mcg/Syringe 0.205 ml @ 0 mls/sec TODAY@1130 SC 05/26/18 11:30 05/26/18 13:00 Objective Vital Signs Date Time Temp Pulse Resp B/P (MAP) Pulse Ox O2 Delivery O2 Flow Rate FiO2 05/26/18 08:00 Room Air 05/26/18 07:45 36.7 56 16 127/73 (91) 96 Room Air 05/26/18 00:00 Room Air 05/26/18 00:00 36.7 54 20 129/68 (88) 97 Room Air 05/25/18 16:00 95 Room Air 05/25/18 15:39 36.8 60 20 129/72 (91) 95 Physical Exam Notes: GENERAL: Awake, alert, well-appearing. HENT: Normocephalic, atraumatic. EYES: Normal conjunctiva. Sclera non-icteric. EOMI NECK: Supple. Full range of motion. no JVD RESPIRATORY: normal work of breathing NEURO: No motor deficits noted. SKIN: No new rash or jaundice noted. + bruising in upper right arm. Laboratory Results 05/26/18 06:42 Red Blood Count 4.65, Mean Corpuscular Volume 87.5, Mean Corpuscular Hemoglobin 29.2, Mean Corpuscular Hemoglobin Concent 33.4, Neutrophils (%) (Auto) 83.0, Lymphocytes (%) (Auto) 8.3, Monocytes (%) (Auto) 5.7, Eosinophils (%) (Auto) 0.0 , Basophils (%) (Auto) 0.1, Neutrophils # (Auto) 12.84, Lymphocytes # (Auto) 1.29, Monocytes # (Auto) 0.89, Eosinophils # (Auto) 0.00, Basophils # (Auto) 0.02 Test 05/25/18 20:30 05/26/18 06:42 Stool Occult Blood NEGATIVE (NEGATIVE) White Blood Count 15.49 K/uL (4.8-10.8) Red Blood Count 4.65 M/uL (4.7-6.1) Hemoglobin 13.6 g/dL (14.0-18.0) Hematocrit 40.7 % (42-52) Mean Corpuscular Volume 87.5 fL (80-100) Mean Corpuscular Hemoglobin 29.2 pg (25-34) Mean Corpuscular Hemoglobin Concent 33.4 g/dl (32-36) Platelet Count 3 K/uL (130-400) Neutrophils (%) (Auto) 83.0 % Lymphocytes (%) (Auto) 8.3 % Monocytes (%) (Auto) 5.7 % Eosinophils (%) (Auto) 0.0 % Basophils (%) (Auto) 0.1 % Neutrophils # (Auto) 12.84 K/uL (1.4-6.5) Lymphocytes # (Auto) 1.29 K/uL (1.2-3.4) Monocytes # (Auto) 0.89 K/uL (0.11-0.59) Eosinophils # (Auto) 0.00 K/uL (0-0.5) Basophils # (Auto) 0.02 K/uL (0-0.2) RDW Standard Deviation 45.2 fL (36.4-46.3) RDW Coefficient of Variation 14.0 % (11.5-14.5) Immature Granulocyte % (Auto) 2.9 % Immature Granulocyte # (Auto) 0.45 K/uL (0.00-0.02) Platelet Estimate SIGNIFIC DECREASED Assessment and Plan 53 yo M with PMHX of ITP since 2000, HLD, GERD presenting as direct admit from cancer center due to acute thrombocytopenia. 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 Steroid refractory ITP, thrombocytopenia - s/p IVIG 1 gm x 2. - platelets back down to 3 today. Per heme onc will start on thrombopoeitin today. - continue IV solumedrol 60mg BID per heme/onc - awaiting curative splenectomy - goal plt count to be at least 50K, possibly lower. Will continue to monitor. GERD - zantac 150 mg PO BID HLD - not on chronic medications - low fat diet DVT: contraindicated due to low risk of clotting and very high risk of bleeding from chemical/mechanical anticoagulant means FEN/GI: regular diet. No fluids indicated at this time. Dispo: med/surg. Consider activity - like healing garden. Resident Physician Supervision Note: I interviewed and examined the patient. Discussed with Dr. Andrews and agree with findings and plan as documented in the note. Any exceptions or clarifications are listed here: None Documented By: Juan Askew feeling ok, less frustrated today, just wants to get splenectomy over with but understands needing to wait on rise in plt. would prefer to remain inpt at this time given how low plt are and concern on bleeding, as well as how quickly his plt varsha-then dropped making it possible he would miss opportunity for splenectomy vitals noted nad breathing unlabored no pallor or icterus, diffuse bruising relatively unchanged ITP -steroids, IVIG, Nplate, follow -splenectomy once possible Continued [facility] stay due to: multiple IV medications needed Resident Tracking Resident Involvement: Resident Care Provided Care Provided: Adult Hospital Medicine
[2018-05-26] MEDS ORDERED: ROMIPLOSTIM SC SCH (11:30)
--- NOTE | 2018-05-26 12:11 | Surgery Progress Note ---
Surgery Progress Note Date of Service May 26, 2018. Subjective no new c/o, at bedside Objective Vital Signs: Date Time Temp Pulse Resp B/P (MAP) Pulse Ox O2 Delivery O2 Flow Rate FiO2 05/26/18 08:00 Room Air 05/26/18 07:45 36.7 56 16 127/73 (91) 96 Room Air 05/26/18 00:00 Room Air 05/26/18 00:00 36.7 54 20 129/68 (88) 97 Room Air 05/25/18 16:00 95 Room Air 05/25/18 15:39 36.8 60 20 129/72 (91) 95 Abdomen: soft Laboratory Results: Results Past 24 Hours Test 05/25/18 20:30 05/26/18 06:42 Range/Units Stool Occult Blood NEGATIVE NEGATIVE White Blood Count 15.49 4.8-10.8 K/uL Red Blood Count 4.65 4.7-6.1 M/uL Hemoglobin 13.6 14.0-18.0 g/dL Hematocrit 40.7 42-52 % Mean Corpuscular Volume 87.5 80-100 fL Mean Corpuscular Hemoglobin 29.2 25-34 pg Mean Corpuscular Hemoglobin Concent 33.4 32-36 g/dl Platelet Count 3 130-400 K/uL Neutrophils (%) (Auto) 83.0 % Lymphocytes (%) (Auto) 8.3 % Monocytes (%) (Auto) 5.7 % Eosinophils (%) (Auto) 0.0 % Basophils (%) (Auto) 0.1 % Neutrophils # (Auto) 12.84 1.4-6.5 K/uL Lymphocytes # (Auto) 1.29 1.2-3.4 K/uL Monocytes # (Auto) 0.89 0.11-0.59 K/uL Eosinophils # (Auto) 0.00 0-0.5 K/uL Basophils # (Auto) 0.02 0-0.2 K/uL RDW Standard Deviation 45.2 36.4-46.3 fL RDW Coefficient of Variation 14.0 11.5-14.5 % Immature Granulocyte % (Auto) 2.9 % Immature Granulocyte # (Auto) 0.45 0.00-0.02 K/uL Platelet Estimate SIGNIFIC DECREASED Assessment & Plan Refractory ITP plt count back down to 3,000 romiplostim given today will continue to follow, await improvement in plt seen with Dr. Valenzuela
[2018-05-26 15:29] VITALS: BP 135/73; PULSE 59; TEMP 36.5; O2SAT 94
[2018-05-26 22:39] VITALS: BP 120/66; PULSE 51; TEMP 36.4; O2SAT 97
[2018-05-27 06:48] LABS: HEMOGLOBIN 14.1 g/dL (14.0-18.0); MEAN CELL VOLUME 88.1 fL (80-100); MEAN CORPUSCULAR HEMOGLOBIN 29.6 pg (25-34); MEAN CORPUSCULAR HGB CONC 33.6 g/dl (32-36); PLATELET COUNT 2 K/uL (130-400); RED CELL DISTRIBUTION WIDTH CV 14.1 % (11.5-14.5); RED CELL DISTRIBUTION WIDTH SD 45.6 fL (36.4-46.3); WHITE BLOOD COUNT 18.99 K/uL (4.8-10.8)
[2018-05-27 07:12] VITALS: BP 109/42; PULSE 51; TEMP 36.7; O2SAT 95
[2018-05-27 07:25] LABS: BASO % 0.2 %; BASO ABS # 0.04 K/uL (0-0.2); IG# 0.86 K/uL (0.00-0.02); LYMPH % 8.5 %; LYMPH ABS # 1.61 K/uL (1.2-3.4); MONO % 5.9 %; MONO ABS # 1.12 K/uL (0.11-0.59); NEUT % 80.9 %; NEUT ABS # 15.36 K/uL (1.4-6.5)
[2018-05-27] MEDS ORDERED: NURSING VERBAL MED ORDER ONE ×2 (08:15→08:45)
[2018-05-27] MEDS: RANITIDINE HCL 150 MG TAB PO SCH ×2 (08:45→20:42)
--- NOTE | 2018-05-27 08:56 | HEME/ONC PROGRESS NOTE ---
DATE: 05/27/2018 HEMATOLOGY/ONCOLOGY PROGRESS NOTE DIAGNOSIS: Refractory immune thrombocytopenia purpura. SUBJECTIVE: Yayo was seen and examined at bedside this morning. Platelet count remains refractory, presently measuring 2000. He received Nplate subcutaneous yesterday. He has received several courses of IVIG as well as continued Solu-Medrol. Fortunately, he continues to demonstrate no evidence of external hemorrhage. He offers no complaint otherwise today. PHYSICAL EXAMINATION: GENERAL: He is in no acute distress. VITAL SIGNS: Temperature 36.7, pulse 51, respiratory rate 18, blood pressure 109/42. SKIN: Without rash or lesion surprisingly. HEENT: Oral mucosa without erythema or ulceration. HEART: Regular rate and rhythm. LUNGS: Clear to auscultation bilaterally. ABDOMEN: Soft, nontender, nondistended. EXTREMITIES: No clubbing, cyanosis or edema. NEUROLOGIC: Grossly intact. LABORATORY DATA: WBC count 18,990, hemoglobin 14.1, platelet count 2000. Chemistries: Sodium in particular 136, potassium 4.2, chloride 107, carbon dioxide 23, creatinine 1.20, BUN 30. IMPRESSION: Refractory immune thrombocytopenic purpura. PLAN: In summary, Yayo has received a multitude of immune modulating agents including corticosteroids, IVIG and most recently Nplate which is a direct thrombopoietin agonist. His platelet count remains refractory and will administer WinRho 75 mcg per kilogram intravenously today. The goal was to get his platelet count beyond 20,000 so we could proceed with laparoscopic splenectomy. Will continue to follow him on a daily basis. If he would develop any bleeding, platelets should be administered.
--- NOTE | 2018-05-27 12:06 | Surgery Progress Note ---
Surgery Progress Note Date of Service May 27, 2018. Subjective ITP refractory to ivig, steroids. plt count 2k this am, no spontaneous bleeding Objective Vital Signs: Date Time Temp Pulse Resp B/P (MAP) Pulse Ox O2 Delivery O2 Flow Rate FiO2 05/27/18 08:00 Room Air 05/27/18 07:12 36.7 51 18 109/42 (64) 95 Room Air 05/26/18 22:39 36.4 51 16 120/66 (84) 97 Room Air 05/26/18 16:00 Room Air 05/26/18 15:29 36.5 59 18 135/73 (93) 94 General Appearance: WD/WN, no apparent distress Abdomen: normal bowel sounds, non tender, non distended, soft, no organomegaly , no pulsatile mass Laboratory Results: Results Past 24 Hours Test 05/27/18 05:50 Range/Units White Blood Count 18.99 4.8-10.8 K/uL Red Blood Count 4.77 4.7-6.1 M/uL Hemoglobin 14.1 14.0-18.0 g/dL Hematocrit 42.0 42-52 % Mean Corpuscular Volume 88.1 80-100 fL Mean Corpuscular Hemoglobin 29.6 25-34 pg Mean Corpuscular Hemoglobin Concent 33.6 32-36 g/dl Platelet Count 2 130-400 K/uL Neutrophils (%) (Auto) 80.9 % Lymphocytes (%) (Auto) 8.5 % Monocytes (%) (Auto) 5.9 % Eosinophils (%) (Auto) 0.0 % Basophils (%) (Auto) 0.2 % Neutrophils # (Auto) 15.36 1.4-6.5 K/uL Lymphocytes # (Auto) 1.61 1.2-3.4 K/uL Monocytes # (Auto) 1.12 0.11-0.59 K/uL Eosinophils # (Auto) 0.00 0-0.5 K/uL Basophils # (Auto) 0.04 0-0.2 K/uL RDW Standard Deviation 45.6 36.4-46.3 fL RDW Coefficient of Variation 14.1 11.5-14.5 % Immature Granulocyte % (Auto) 4.5 % Immature Granulocyte # (Auto) 0.86 0.00-0.02 K/uL Assessment & Plan itp, restarted ivig. plt count 2k. agree with need for splenectomy. discussed with hematology, will plan on surgery when plt count>50k plan for laparoscopic splenectomy when plt count >50k will need immunizations against pneumococcus, meningococcus, and HIB educated on opsi risks reviewed surg will follow
[2018-05-27] MEDS: METHYLPREDNISOLONE IV 60 MG in SYRINGE 0 ML IV SCH ×2 (12:35→20:42)
--- NOTE | 2018-05-27 14:26 | Family Medicine Progress Note ---
Progress Note Date of Service May 27, 2018. Subjective feeling about the same no new complaints plt noted no significant bleeding Medications Current Inpatient Medications Medications (Trade) Dose Ordered Sig/Kristine Route Start Time Stop Time Status Last Admin Dose Admin Acetaminophen (Tylenol Tab) 650 mg Q4H PRN PO 05/22/18 17:15 06/21/18 17:14 Al Hydrox/Mg Hydrox/Simethicone (Maalox Max Susp) 15 ml Q4H PRN PO 05/22/18 17:15 06/21/18 17:14 Ondansetron HCl (Zofran Inj) 4 mg Q6H PRN IV 05/22/18 17:15 06/21/18 17:14 05/22/18 18:54 4 MG Zolpidem Tartrate (Ambien Tab) 5 mg HSZ PRN PO 05/22/18 17:15 06/21/18 17:14 Diphenhydramine HCl (Benadryl Cap) 25 mg Q4HWA PRN PO 05/22/18 18:00 06/21/18 17:59 Ranitidine HCl (zANTac TAB) 150 mg BID PO 05/22/18 21:00 06/21/18 17:59 05/27/18 08:45 150 MG Methylprednisolone Sodium Succinate 60 mg/Syringe 0.96 ml @ 1.5 mls/min BID IV 05/23/18 09:00 06/22/18 08:59 05/27/18 12:35 1.5 MLS/MIN Objective Vital Signs Date Time Temp Pulse Resp B/P (MAP) Pulse Ox O2 Delivery O2 Flow Rate FiO2 05/27/18 08:00 Room Air 05/27/18 07:12 36.7 51 18 109/42 (64) 95 Room Air 05/26/18 22:39 36.4 51 16 120/66 (84) 97 Room Air 05/26/18 16:00 Room Air 05/26/18 15:29 36.5 59 18 135/73 (93) 94 Physical Exam Notes: all other ROS otherwise negative except for as above Laboratory Results 05/27/18 05:50 Red Blood Count 4.77, Mean Corpuscular Volume 88.1, Mean Corpuscular Hemoglobin 29.6, Mean Corpuscular Hemoglobin Concent 33.6, Neutrophils (%) (Auto) 80.9, Lymphocytes (%) (Auto) 8.5, Monocytes (%) (Auto) 5.9, Eosinophils (%) (Auto) 0.0 , Basophils (%) (Auto) 0.2, Neutrophils # (Auto) 15.36, Lymphocytes # (Auto) 1.61, Monocytes # (Auto) 1.12, Eosinophils # (Auto) 0.00, Basophils # (Auto) 0.04 Test 05/27/18 05:50 White Blood Count 18.99 K/uL (4.8-10.8) Red Blood Count 4.77 M/uL (4.7-6.1) Hemoglobin 14.1 g/dL (14.0-18.0) Hematocrit 42.0 % (42-52) Mean Corpuscular Volume 88.1 fL (80-100) Mean Corpuscular Hemoglobin 29.6 pg (25-34) Mean Corpuscular Hemoglobin Concent 33.6 g/dl (32-36) Platelet Count 2 K/uL (130-400) Neutrophils (%) (Auto) 80.9 % Lymphocytes (%) (Auto) 8.5 % Monocytes (%) (Auto) 5.9 % Eosinophils (%) (Auto) 0.0 % Basophils (%) (Auto) 0.2 % Neutrophils # (Auto) 15.36 K/uL (1.4-6.5) Lymphocytes # (Auto) 1.61 K/uL (1.2-3.4) Monocytes # (Auto) 1.12 K/uL (0.11-0.59) Eosinophils # (Auto) 0.00 K/uL (0-0.5) Basophils # (Auto) 0.04 K/uL (0-0.2) RDW Standard Deviation 45.6 fL (36.4-46.3) RDW Coefficient of Variation 14.1 % (11.5-14.5) Immature Granulocyte % (Auto) 4.5 % Immature Granulocyte # (Auto) 0.86 K/uL (0.00-0.02) Assessment and Plan 53 yo M with PMHX of ITP since 2000, HLD, GERD presenting as direct admit from cancer center due to acute thrombocytopenia. 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 Refractory ITP, thrombocytopenia - ongoing IVIG, Nplate, steroids per heme/onc - continue follow CBC and supportive care GERD - zantac 150 mg PO BID HLD - not on chronic medications - low fat diet DVT: contraindicated due to low risk of clotting and very high risk of bleeding from chemical/mechanical anticoagulant means FEN/GI: regular diet. No fluids indicated at this time. Dispo: med/surg. Consider activity - like healing garden. Continued [facility] stay due to: multiple IV medications needed Resident Tracking Resident Involvement: Resident Care Provided Care Provided: Adult [facility] Medicine
[2018-05-27 15:34] VITALS: BP 129/66; PULSE 69; TEMP 36.7; O2SAT 97
[2018-05-27 23:20] VITALS: BP 142/85; PULSE 54; TEMP 36.9; O2SAT 95
[2018-05-28 06:41] LABS: HEMATOCRIT 38.7 % (42-52); MEAN CELL VOLUME 88.2 fL (80-100); MEAN CORPUSCULAR HEMOGLOBIN 29.6 pg (25-34); MEAN CORPUSCULAR HGB CONC 33.6 g/dl (32-36); PLATELET COUNT 1 K/uL (130-400); RED CELL DISTRIBUTION WIDTH SD 45.5 fL (36.4-46.3); WHITE BLOOD COUNT 18.16 K/uL (4.8-10.8)
[2018-05-28 06:42] LABS: BASO % 0.1 %; BASO ABS # 0.02 K/uL (0-0.2); IG# 0.54 K/uL (0.00-0.02); LYMPH % 7.2 %; MONO % 5.2 %; MONO ABS # 0.95 K/uL (0.11-0.59); NEUT % 84.5 %; NEUT ABS # 15.35 K/uL (1.4-6.5)
--- NOTE | 2018-05-28 07:09 | Surgery Progress Note ---
Surgery Progress Note Date of Service May 28, 2018. Subjective + feeling well, + flatus, + pain controlled, + diet (Tolerating regular diet), No complaints, No bowel movement, No nausea, No vomiting Objective Vital Signs: Date Time Temp Pulse Resp B/P (MAP) Pulse Ox O2 Delivery O2 Flow Rate FiO2 05/28/18 00:00 Room Air 05/27/18 23:20 36.9 54 18 142/85 (104) 95 Room Air 05/27/18 15:45 Room Air 05/27/18 15:34 36.7 69 18 129/66 (87) 97 Room Air 05/27/18 08:00 Room Air 05/27/18 07:12 36.7 51 18 109/42 (64) 95 Room Air General Appearance: WD/WN, no apparent distress Head: normocephalic, atraumatic Respiratory/Chest: no respiratory distress Abdomen: non tender, non distended, soft, no organomegaly Extremities: + pertinent finding (bruising on RUE proximal to infusion site.) Laboratory Results: Results Past 24 Hours Test 05/28/18 05:54 Range/Units White Blood Count 18.16 4.8-10.8 K/uL Red Blood Count 4.39 4.7-6.1 M/uL Hemoglobin 13.0 14.0-18.0 g/dL Hematocrit 38.7 42-52 % Mean Corpuscular Volume 88.2 80-100 fL Mean Corpuscular Hemoglobin 29.6 25-34 pg Mean Corpuscular Hemoglobin Concent 33.6 32-36 g/dl Platelet Count 1 130-400 K/uL Neutrophils (%) (Auto) 84.5 % Lymphocytes (%) (Auto) 7.2 % Monocytes (%) (Auto) 5.2 % Eosinophils (%) (Auto) 0.0 % Basophils (%) (Auto) 0.1 % Neutrophils # (Auto) 15.35 1.4-6.5 K/uL Lymphocytes # (Auto) 1.30 1.2-3.4 K/uL Monocytes # (Auto) 0.95 0.11-0.59 K/uL Eosinophils # (Auto) 0.00 0-0.5 K/uL Basophils # (Auto) 0.02 0-0.2 K/uL RDW Standard Deviation 45.5 36.4-46.3 fL RDW Coefficient of Variation 14.0 11.5-14.5 % Immature Granulocyte % (Auto) 3.0 % Immature Granulocyte # (Auto) 0.54 0.00-0.02 K/uL Platelet Estimate SIGNIFIC DECREASED Assessment & Plan ITP refractory to IVIG, steroids. Abdomen soft, non-distended, non-tender. Tolerating regular diet, no N/V. + flatus. Plt count down to 1k this AM. IVIG still infusing. Stable. Will continue to monitor.
[2018-05-28 07:25] VITALS: BP 121/73; PULSE 54; TEMP 36.7; O2SAT 97
[2018-05-28] MEDS: RANITIDINE HCL 150 MG TAB PO SCH ×2 (08:00→20:35)
[2018-05-28] MEDS: METHYLPREDNISOLONE IV 60 MG in SYRINGE 0 ML IV SCH (08:00)
--- NOTE | 2018-05-28 09:17 | HEME/ONC PROGRESS NOTE ---
DATE: 05/28/2018 HEMATOLOGY/ONCOLOGY PROGRESS NOTE DIAGNOSIS: Refractory immune thrombocytopenic purpura. SUBJECTIVE: I visited with Yayo again this morning at bedside. He is becoming increasingly frustrated and became tearful during today's encounter. He received IVIG once again yesterday and continues Solu-Medrol and his platelet count remains at 1000. He denies any genitourinary or gastrointestinal bleeding and has a couple of scattered ecchymoses, but otherwise clinically seems to be doing well. PHYSICAL EXAMINATION: GENERAL: He is in no acute distress. VITAL SIGNS: His current temperature is 36.7, pulse 54, respiratory rate 20, blood pressure 121/73. SKIN: Again, a few scattered ecchymoses, but no petechial rash noted. HEENT: Oral mucosa without erythema or ulceration. NECK: Supple. HEART: Regular rate and rhythm. No clicks, rubs, murmurs or gallops. LUNGS: Clear to auscultation. ABDOMEN: Soft, nontender, nondistended. EXTREMITIES: No clubbing, cyanosis or edema. NEUROLOGICALLY: Grossly intact. LABORATORY DATA: WBC count 18,160, hemoglobin 13, platelet count 1000. IMPRESSION: Refractory immune thrombocytopenic purpura. PLAN: Yayo has become increasingly frustrated and actually broke down to tears during this morning's encounter. I think at this juncture with no evidence of external hemorrhage attempt to establish a plan to get him home and monitor his counts daily. I would place him on prednisone 1 mg/kg p.o. daily. I will discuss with Dr. Wilhelm about the possibility of incorporating rituximab as outpatient, possibly tomorrow morning. He received the thrombopoietin agonist about 3 days ago. Sometimes response is not seen for nearly a week, so I remain optimistic he will respond at some point. However, because of his mental breakdown, I think we would be better served to allow him to go home with strict instructions to go to the Emergency Room should he develop bleeding. He is also to refrain in any activity which may result in bodily injury and subsequently a fatal bleed. Yayo has verbalized understanding of this risk. He has agreed to follow up closely and again we will plan to proceed with weekly rituximab moving forward. Thank you again for assisting me in the care of this very complex case. CHUY
[2018-05-28] MEDS ORDERED: DEXAMETHASONE 4 MG TAB PO ONE (10:00)
--- NOTE | 2018-05-28 14:44 | Family Medicine Progress Note ---
Progress Note Date of Service May 28, 2018. Subjective Tolerating p.o. No acute events overnight. Platelet count back to 1000. Discussed with the patient. Patient wondering if Decadron would make a difference. Discussed that steroids are steroids and Decadron may not work better than the methylprednisolone he is on currently. Patient very much desires to try Decadron again and recheck platelets later this afternoon. Patient also complains of skin lesions 3-4 in number small, non-pruritic, nondraining, slightly red on his forehead and cheeks. ROS See HPI for pertinent positives and negatives. Otherwise denies new headache, vision change, chest pain, dyspnea, abdominal pain, loose or bloody stools. Medications Current Inpatient Medications Medications (Trade) Dose Ordered Sig/Kristine Route Start Time Stop Time Status Last Admin Dose Admin Acetaminophen (Tylenol Tab) 650 mg Q4H PRN PO 05/22/18 17:15 06/21/18 17:14 Al Hydrox/Mg Hydrox/Simethicone (Maalox Max Susp) 15 ml Q4H PRN PO 05/22/18 17:15 06/21/18 17:14 Ondansetron HCl (Zofran Inj) 4 mg Q6H PRN IV 05/22/18 17:15 06/21/18 17:14 05/22/18 18:54 4 MG Zolpidem Tartrate (Ambien Tab) 5 mg HSZ PRN PO 05/22/18 17:15 06/21/18 17:14 Diphenhydramine HCl (Benadryl Cap) 25 mg Q4HWA PRN PO 05/22/18 18:00 06/21/18 17:59 Ranitidine HCl (zANTac TAB) 150 mg BID PO 05/22/18 21:00 06/21/18 17:59 05/28/18 08:00 150 MG Dexamethasone (Decadron Tab) 40 mg DAILY PO 05/29/18 09:00 06/28/18 08:59 Objective Vital Signs Date Time Temp Pulse Resp B/P (MAP) Pulse Ox O2 Delivery O2 Flow Rate FiO2 05/28/18 07:40 Room Air 05/28/18 07:25 36.7 54 20 121/73 (89) 97 Room Air 05/28/18 00:00 Room Air 05/27/18 23:20 36.9 54 18 142/85 (104) 95 Room Air 05/27/18 15:45 Room Air 05/27/18 15:34 36.7 69 18 129/66 (87) 97 Room Air Physical Exam Notes: GENERAL: Awake, alert, well-appearing, in no distress HENT: Normocephalic, atraumatic. 3-4 small mildly erythematous macules on his forehead and left cheek, nondraining. EYES: Normal conjunctiva. Sclera non-icteric. NECK: Supple. Full range of motion. no JVD UPPER EXTREMITIES: Stable bruise on medial right forearm. NEURO: No motor deficits noted. SKIN: No jaundice noted. No petechiae Laboratory Results Last Resulted 05/28/18 05:54 Red Blood Count 4.39, Mean Corpuscular Volume 88.2, Mean Corpuscular Hemoglobin 29.6, Mean Corpuscular Hemoglobin Concent 33.6, Neutrophils (%) (Auto) 84.5, Lymphocytes (%) (Auto) 7.2, Monocytes (%) (Auto) 5.2, Eosinophils (%) (Auto) 0.0 , Basophils (%) (Auto) 0.1, Neutrophils # (Auto) 15.35, Lymphocytes # (Auto) 1.30, Monocytes # (Auto) 0.95, Eosinophils # (Auto) 0.00, Basophils # (Auto) 0.02 Last Resulted 05/24/18 07:00 Assessment and Plan 53 yo M with PMHX of ITP since 2000, HLD, GERD presenting as direct admit from cancer center due to acute thrombocytopenia. Recently discharged from [facility] four days OUTS[employer] with plts count of 54K, found to have plt 3K on readmission. Refractory ITP, thrombocytopenia - Discussed at length with patient options regarding ongoing management. Patient is frustrated regarding length of time for platelets to return to 20, 000. Patient asked if he could be put on Decadron again instead of the steroid he is on currently. Discussed with him that this will likely not make a difference. Patient verbalized understanding but still wanted to try. Patient also wanted a recheck of his platelets this afternoon. Discussed with attending. Discussed with Dr. Wilhelm. We think it reasonable for him to stay, to be on Decadron, and to recheck his platelets. GERD -Continue Zantac 150 mg PO BID HLD - not on chronic medications -Continue low fat diet DVT: contraindicated due to low risk of clotting and very high risk of bleeding from chemical/mechanical anticoagulant means FEN/GI: regular diet. No fluids indicated at this time. Dispo: med/surg. Consider activity - like healing garden. Resident Physician Supervision Note: I interviewed and examined the patient. Discussed with Dr. Andrews and agree with findings and plan as documented in the note. Any exceptions or clarifications are listed here: None Documented By: Juan Askew feeling ok just bored after dsicussions w hematology this AM with thoughts of going home, he is now VERY reticent to, would prefer ongoing inpt management given concern on if he were to bleed, as well as practical concern on arranging splenectomy quickly as outpt given how short-lived his last adequate platelet count was further he requests re-trial of decadron - understands this is likely a lateral move w solumedrol, but notes that when his counts last varsha he was specifically on decadron emilia noted nad breathing unlabored no pallor or icterus refractory ITP -retry decadron at his request -IVIG -Nplate -watchful waiting -time Continued [facility] stay due to: other (Thrombocytopenia) Resident Tracking Resident Involvement: Resident Care Provided Care Provided: Adult Hospital Medicine
[2018-05-28 14:51] VITALS: BP 124/73; PULSE 69; TEMP 36.9; O2SAT 97
[2018-05-28 17:51] LABS: PLATELET COUNT 2 K/uL (130-400)
[2018-05-29] VITALS: BP 120/62; PULSE 56; TEMP 36.4; O2SAT 97
[2018-05-29 07:05] VITALS: BP 136/89; PULSE 59; TEMP 36.7; O2SAT 98
[2018-05-29 07:53] LABS: HEMATOCRIT 42.8 % (42-52); HEMOGLOBIN 14.5 g/dL (14.0-18.0); MEAN CELL VOLUME 89.4 fL (80-100); MEAN CORPUSCULAR HEMOGLOBIN 30.3 pg (25-34); MEAN CORPUSCULAR HGB CONC 33.9 g/dl (32-36); PLATELET COUNT 2 K/uL (130-400); RED CELL DISTRIBUTION WIDTH CV 14.1 % (11.5-14.5)
--- NOTE | 2018-05-29 08:14 | HEME/ONC PROGRESS NOTE ---
DATE: 05/29/2018 DIAGNOSIS: Refractory ITP. SUBJECTIVE: I visited with Yayo and his at bedside this morning. After yesterday's discussion, I thought Yayo would proceed with discharge, but had a change of heart after speaking to the hospitalist service. Yayo convinced the hospitalist to place back on high-dose dexamethasone and will continue to follow his counts daily. I spoke to Dr. Wilhelm yesterday and the plan from hematology standpoint is to proceed with another course of Nplate as outpatient which would be due by next Friday. Yayo is in good spirits today. There were no external signs of hemorrhage. PHYSICAL EXAMINATION: GENERAL: Yayo is in no acute distress. VITAL SIGNS: Temperature 36.7, pulse 59, respiratory rate 18, blood pressure 136/89. SKIN: Without rash or lesion. Few scattered ecchymoses from previous lab draws. HEENT: Oral mucosa without erythema or ulceration. NECK: Supple. HEART: Regular rate and rhythm. LUNGS: Clear to auscultation. ABDOMEN: Soft, nontender, nondistended. EXTREMITIES: No calf tenderness or swelling. No clubbing, cyanosis or edema. NEUROLOGICAL: Grossly intact. LABORATORY DATA: Pending at the time of dictation. IMPRESSION: Refractory immune thrombocytopenia. PLAN: Yayo will remain in the hospital most likely over the weekend. General surgery has been rounding daily in the hopes of taking him to OR for laparoscopic splenectomy. We will see if his platelets respond to another course of dexamethasone. Nonetheless, we will plan for expedient outpatient followup upon discharge as to administer another course of Nplate. Will continue to follow Yayo during his hospital stay.
[2018-05-29 08:23] LABS: BASO % 0.1 %; BASO ABS # 0.02 K/uL (0-0.2); IG# 0.72 K/uL (0.00-0.02); LYMPH % 4.5 %; LYMPH ABS # 1.14 K/uL (1.2-3.4); MONO % 6.3 %; MONO ABS # 1.59 K/uL (0.11-0.59); NEUT % 86.3 %; NEUT ABS # 21.93 K/uL (1.4-6.5)
[2018-05-29] MEDS: DEXAMETHASONE 4 MG TAB PO SCH (08:26)
[2018-05-29] MEDS: RANITIDINE HCL 150 MG TAB PO SCH ×2 (08:29→21:26)
--- NOTE | 2018-05-29 09:34 | Surgery Progress Note ---
Surgery Progress Note Date of Service May 29, 2018. Subjective ITP, refractory to medical management. IVIG, decadron yest, plt 2k this am. no bleeding Objective Vital Signs: Date Time Temp Pulse Resp B/P (MAP) Pulse Ox O2 Delivery O2 Flow Rate FiO2 05/29/18 08:00 Room Air 05/29/18 07:05 36.7 59 18 136/89 (105) 98 Room Air 05/29/18 00:00 Room Air 05/29/18 00:00 36.4 56 20 120/62 (81) 97 Room Air 05/28/18 16:30 Room Air 05/28/18 14:51 36.9 69 20 124/73 (90) 97 General Appearance: WD/WN, no apparent distress Abdomen: normal bowel sounds, non tender, non distended, soft, no organomegaly , no pulsatile mass Laboratory Results: Results Past 24 Hours Test 05/28/18 16:47 05/29/18 06:55 Range/Units Platelet Count 2 2 130-400 K/uL Platelet Estimate SIGNIFIC DECREASED White Blood Count 25.40 4.8-10.8 K/uL Red Blood Count 4.79 4.7-6.1 M/uL Hemoglobin 14.5 14.0-18.0 g/dL Hematocrit 42.8 42-52 % Mean Corpuscular Volume 89.4 80-100 fL Mean Corpuscular Hemoglobin 30.3 25-34 pg Mean Corpuscular Hemoglobin Concent 33.9 32-36 g/dl Neutrophils (%) (Auto) 86.3 % Lymphocytes (%) (Auto) 4.5 % Monocytes (%) (Auto) 6.3 % Eosinophils (%) (Auto) 0.0 % Basophils (%) (Auto) 0.1 % Neutrophils # (Auto) 21.93 1.4-6.5 K/uL Lymphocytes # (Auto) 1.14 1.2-3.4 K/uL Monocytes # (Auto) 1.59 0.11-0.59 K/uL Eosinophils # (Auto) 0.00 0-0.5 K/uL Basophils # (Auto) 0.02 0-0.2 K/uL RDW Standard Deviation 46.0 36.4-46.3 fL RDW Coefficient of Variation 14.1 11.5-14.5 % Immature Granulocyte % (Auto) 2.8 % Immature Granulocyte # (Auto) 0.72 0.00-0.02 K/uL Assessment & Plan ITP, plt count 2k. agree with need for splenectomy. discussed with hematology , will plan on surgery when plt count>50k, or >20k if platelets available for transfusion perioperatively plan for laparoscopic splenectomy when plt count >50k, or >20k if platelets available for transfusion perioperatively will need immunizations against pneumococcus, meningococcus, and HIB educated on opsi risks reviewed surg will follow, Dr. Kelley covering over weekend
[2018-05-29 15:56] VITALS: BP 132/83; PULSE 66; TEMP 36.8; O2SAT 96
--- NOTE | 2018-05-29 16:54 | Family Medicine Progress Note ---
Progress Note Date of Service May 29, 2018. Subjective No acute events overnight Platelets remain stable at 3K Patient tolerating p.o., ambulating. ROS See HPI for pertinent positives and negatives. Otherwise denies new headache, vision change, chest pain, dyspnea, abdominal pain, loose or bloody stools, dysuria, or numbness tingling in extremities. Medications Current Inpatient Medications Medications (Trade) Dose Ordered Sig/Kristine Route Start Time Stop Time Status Last Admin Dose Admin Acetaminophen (Tylenol Tab) 650 mg Q4H PRN PO 05/22/18 17:15 06/21/18 17:14 Al Hydrox/Mg Hydrox/Simethicone (Maalox Max Susp) 15 ml Q4H PRN PO 05/22/18 17:15 06/21/18 17:14 Ondansetron HCl (Zofran Inj) 4 mg Q6H PRN IV 05/22/18 17:15 06/21/18 17:14 05/22/18 18:54 4 MG Zolpidem Tartrate (Ambien Tab) 5 mg HSZ PRN PO 05/22/18 17:15 06/21/18 17:14 Diphenhydramine HCl (Benadryl Cap) 25 mg Q4HWA PRN PO 05/22/18 18:00 06/21/18 17:59 Ranitidine HCl (zANTac TAB) 150 mg BID PO 05/22/18 21:00 06/21/18 17:59 05/28/18 08:00 150 MG Dexamethasone (Decadron Tab) 40 mg DAILY PO 05/29/18 09:00 06/28/18 08:59 05/29/18 08:26 40 MG Objective Vital Signs Date Time Temp Pulse Resp B/P (MAP) Pulse Ox O2 Delivery O2 Flow Rate FiO2 05/29/18 16:00 Room Air 05/29/18 15:56 36.8 66 18 132/83 (99) 96 Room Air 05/29/18 08:00 Room Air 05/29/18 07:05 36.7 59 18 136/89 (105) 98 Room Air 05/29/18 00:00 Room Air 05/29/18 00:00 36.4 56 20 120/62 (81) 97 Room Air Physical Exam Notes: GENERAL: Awake, alert, well-appearing, in no distress HENT: Normocephalic, atraumatic. 3-4 small mildly erythematous macules on his forehead and left cheek, nondraining. EYES: Normal conjunctiva. Sclera non-icteric. NECK: Supple. Full range of motion. no JVD UPPER EXTREMITIES: Stable bruise on medial right forearm. NEURO: No motor deficits noted. SKIN: No jaundice noted. No petechiae Assessment and Plan 53 yo M with PMHX of ITP since 2000, HLD, GERD presenting as direct admit from cancer center due to acute thrombocytopenia. Recently discharged from [facility] four days [employer] with plts count of 54K, found to have plt 3K on readmission. Refractory ITP, thrombocytopenia -Continue Decadron 40 mg daily. Follow platelets every 24 hours. Await splenectomy. GERD -Continue Zantac 150 mg PO BID HLD - not on chronic medications -Continue low fat diet DVT: contraindicated due to low risk of clotting and very high risk of bleeding from chemical/mechanical anticoagulant means FEN/GI: regular diet. No fluids indicated at this time. Dispo: med/surg. Consider activity - like healing garden. Resident Physician Supervision Note: I interviewed and examined the patient. Discussed with Dr. Andrews and agree with findings and plan as documented in the note. Any exceptions or clarifications are listed here: None Documented By: Juan Askew feelingok no new problems vitals noted nad breathing unlabored no pallor or icterus ITP - refractory - ongoing current treatment and close follow up otherwise as above Continued [facility] stay due to: other (Thrombocytopenia) Resident Tracking Resident Involvement: Resident Care Provided Care Provided: Adult Hospital Medicine
[2018-05-29 17:25] VITALS: BP 148/68
[2018-05-29 23:22] VITALS: BP 128/75; PULSE 53; TEMP 36.5; O2SAT 97
[2018-05-29] MEDS: ALUMINUM/MAGNESIUM/SIMETH (MAALOX MAX) 30 ML UDC PO PRN (23:25)
[2018-05-30 07:04] LABS: HEMATOCRIT 41.8 % (42-52); HEMOGLOBIN 14.2 g/dL (14.0-18.0); MEAN CELL VOLUME 88.9 fL (80-100); MEAN CORPUSCULAR HEMOGLOBIN 30.2 pg (25-34); RED CELL DISTRIBUTION WIDTH CV 14.1 % (11.5-14.5); RED CELL DISTRIBUTION WIDTH SD 45.9 fL (36.4-46.3); WHITE BLOOD COUNT 25.01 K/uL (4.8-10.8)
[2018-05-30 07:19] LABS: PLATELET COUNT 3 K/uL (130-400)
[2018-05-30 07:20] LABS: BASO % 0.2 %; BASO ABS # 0.06 K/uL (0-0.2); IG# 0.87 K/uL (0.00-0.02); LYMPH % 4.4 %; MONO % 8.5 %; MONO ABS # 2.12 K/uL (0.11-0.59); NEUT % 83.4 %; NEUT ABS # 20.86 K/uL (1.4-6.5)
[2018-05-30 07:43] VITALS: BP 130/77; PULSE 57; TEMP 36.7; O2SAT 96
[2018-05-30] MEDS: DEXAMETHASONE 4 MG TAB PO SCH (08:02)
[2018-05-30] MEDS: RANITIDINE HCL 150 MG TAB PO SCH ×2 (10:09→19:57)
--- NOTE | 2018-05-30 10:11 | Surgery Progress Note ---
Surgery Progress Note Date of Service May 30, 2018. Subjective + feeling well, No nausea, No vomiting Had mild nose bleed this AM, stopped spontaneously Objective Vital Signs: Date Time Temp Pulse Resp B/P (MAP) Pulse Ox O2 Delivery O2 Flow Rate FiO2 05/30/18 08:30 Room Air 05/30/18 07:43 36.7 57 18 130/77 (94) 96 Room Air 05/30/18 00:00 Room Air 05/29/18 23:22 36.5 53 18 128/75 (92) 97 Room Air 05/29/18 17:25 148/68 (94) 05/29/18 16:00 Room Air 05/29/18 15:56 36.8 66 18 132/83 (99) 96 Room Air Laboratory Results: Results Past 24 Hours Test 05/30/18 06:31 05/30/18 08:00 Range/Units White Blood Count 25.01 4.8-10.8 K/uL Red Blood Count 4.70 4.7-6.1 M/uL Hemoglobin 14.2 14.0-18.0 g/dL Hematocrit 41.8 42-52 % Mean Corpuscular Volume 88.9 80-100 fL Mean Corpuscular Hemoglobin 30.2 25-34 pg Mean Corpuscular Hemoglobin Concent 34.0 32-36 g/dl Platelet Count 3 130-400 K/uL Neutrophils (%) (Auto) 83.4 % Lymphocytes (%) (Auto) 4.4 % Monocytes (%) (Auto) 8.5 % Eosinophils (%) (Auto) 0.0 % Basophils (%) (Auto) 0.2 % Neutrophils # (Auto) 20.86 1.4-6.5 K/uL Lymphocytes # (Auto) 1.10 1.2-3.4 K/uL Monocytes # (Auto) 2.12 0.11-0.59 K/uL Eosinophils # (Auto) 0.00 0-0.5 K/uL Basophils # (Auto) 0.06 0-0.2 K/uL RDW Standard Deviation 45.9 36.4-46.3 fL RDW Coefficient of Variation 14.1 11.5-14.5 % Immature Granulocyte % (Auto) 3.5 % Immature Granulocyte # (Auto) 0.87 0.00-0.02 K/uL Platelet Estimate SIGNIFIC DECREASED Stool Occult Blood NEGATIVE NEGATIVE Assessment & Plan ITP undergoing medical management Plt count 3000 today Plan for splenectomy when platelet count reaches acceptable level Plans for immunization No active bleeding at present time
--- NOTE | 2018-05-30 12:16 | Hematology/Oncology Prog Note ---
Hematology/Onc Progress Note Date of Service May 30, 2018. Diagnoses Refractory ITP Medications Medications Administered Medications (Trade) Dose Ordered Sig/Kristine Route Start Time Stop Time Status Last Admin Dose Admin Immune Globulin 20 gm/Empty Bag 200 ml @ 0 mls/hr 1700,1800,1900,2000,2100 IV 05/22/18 17:00 05/22/18 23:59 MN 05/22/18 23:00 480 MLS/HR Al Hydrox/Mg Hydrox/Simethicone (Maalox Max Susp) 15 ml Q4H PRN PO 05/22/18 17:15 06/21/18 17:14 05/29/18 23:25 15 ML Ondansetron HCl (Zofran Inj) 4 mg Q6H PRN IV 05/22/18 17:15 06/21/18 17:14 05/22/18 18:54 4 MG Ranitidine HCl (zANTac TAB) 150 mg BID PO 05/22/18 21:00 06/21/18 17:59 05/30/18 10:09 150 MG Immune Globulin 20 gm/Empty Bag 200 ml @ 0 mls/hr TODAY@1000,1100,1200,1300,1400 IV 05/23/18 10:00 05/23/18 14:01 MN 05/23/18 16:19 200 MLS/HR Methylprednisolone Sodium Succinate 60 mg/Syringe 0.96 ml @ 1.5 mls/min BID IV 05/23/18 09:00 05/28/18 09:51 MN 05/28/18 08:00 1.5 MLS/MIN Romiplostim 102.5 mcg/Syringe 0.205 ml @ 0 mls/sec TODAY@1130 [place] 05/26/18 11:30 05/26/18 13:00 MN 05/26/18 11:29 102.5 MLS/SEC Immune Globulin 20 gm/Empty Bag 200 ml @ 0 mls/hr TODAY@0900,1000,1100,1200,1300 IV 05/27/18 09:00 05/27/18 13:01 MN 05/28/18 05:02 61.2 MLS/HR Dexamethasone (Decadron Tab) 40 mg NOW ONCE PO 05/28/18 10:00 05/28/18 10:03 MN 05/28/18 10:30 40 MG Dexamethasone (Decadron Tab) 40 mg DAILY PO 05/29/18 09:00 06/28/18 08:59 05/30/18 08:02 40 MG Subjective Mr. Sen is looking stable. He had some blood in his stool this morning and a very brief nosebleed. He denies any major bleeding. Review of Systems: Constitutional: No fever, No fatigue ENT: + unusual epistaxis Respiratory: No cough, No hemoptysis Cardiovascular: No chest pain Abdomen: + GI bleeding, No pain Male : No dysuria, No hematuria Heme: + abnormal bleeding/bruising Vital Signs Vital Signs Past 12 Hours Date Time Temp Pulse Resp B/P (MAP) Pulse Ox O2 Delivery O2 Flow Rate FiO2 05/30/18 08:30 Room Air 05/30/18 07:43 36.7 57 18 130/77 (94) 96 Room Air Physical Exam Constitutional: General Apperance: heathly-appearing Level of Distress: NAD Psychiatric: Mental Status: active & alert Orientation: oriented except where noted ENMT: pharynx normal (no purpura) Lungs: Auscuitation: breath sounds normal Cardiovascular: Heart Auscultation: RRR Abdomen: Inspection & Palpation: soft, no tenderness, guarding & rebound Extremities: no edema Laboratory Last 24 Hours Test 05/30/18 06:31 05/30/18 08:00 White Blood Count 25.01 K/uL Red Blood Count 4.70 M/uL Hemoglobin 14.2 g/dL Hematocrit 41.8 % Mean Corpuscular Volume 88.9 fL Mean Corpuscular Hemoglobin 30.2 pg Mean Corpuscular Hemoglobin Concent 34.0 g/dl Platelet Count 3 K/uL Neutrophils (%) (Auto) 83.4 % Lymphocytes (%) (Auto) 4.4 % Monocytes (%) (Auto) 8.5 % Eosinophils (%) (Auto) 0.0 % Basophils (%) (Auto) 0.2 % Neutrophils # (Auto) 20.86 K/uL Lymphocytes # (Auto) 1.10 K/uL Monocytes # (Auto) 2.12 K/uL Eosinophils # (Auto) 0.00 K/uL Basophils # (Auto) 0.06 K/uL RDW Standard Deviation 45.9 fL RDW Coefficient of Variation 14.1 % Immature Granulocyte % (Auto) 3.5 % Immature Granulocyte # (Auto) 0.87 K/uL Platelet Estimate SIGNIFIC DECREASED Stool Occult Blood NEGATIVE Assessment & Plan He will be due for another dose of Nplate next week. For now, we are in a bit of a holding pattern and Mr. Sen seems to accept this. Nplate may take a bit more time to work, so we'll see how things go after the next dose. There are higher doses as well, so we could consider bumping up the dose. Otherwise, the plan remains to try to get his counts into a range where surgery is feasible and then to take him for splenectomy. I would continue with daily labs and transfusions only in the context of severe, life-threatening bleeding.
--- NOTE | 2018-05-30 12:41 | Family Medicine Progress Note ---
Progress Note Date of Service May 30, 2018. Subjective Pt evaluation today including: conversation w/ patient, physical exam, chart review, lab review, review of inpatient medication list Pain: No pain reported PO Intake: Tolerating PO intake Voiding: no voiding problems Mr. Sen reports he had an episode this morning of noticing blood on his toilet paper after having a loose bowel movement. He states it was a small amount, and denies any blood in his stool. He also reports having had a small, self limiting nose-bleed. He denies chest pain, abdominal pain, shortness of breath, lightheadedness, nausea or vomiting. He reports he is eating and drinking well. Constitutional: No weakness, No fatigue Respiratory: No shortness of breath Cardiovascular: No chest pain Abdomen: No pain, No nausea, No vomiting All Other Systems: Reviewed and Negative Medications Current Inpatient Medications Medications (Trade) Dose Ordered Sig/Kristine Route Start Time Stop Time Status Last Admin Dose Admin Acetaminophen (Tylenol Tab) 650 mg Q4H PRN PO 05/22/18 17:15 06/21/18 17:14 Al Hydrox/Mg Hydrox/Simethicone (Maalox Max Susp) 15 ml Q4H PRN PO 05/22/18 17:15 06/21/18 17:14 05/29/18 23:25 15 ML Ondansetron HCl (Zofran Inj) 4 mg Q6H PRN IV 05/22/18 17:15 06/21/18 17:14 05/22/18 18:54 4 MG Zolpidem Tartrate (Ambien Tab) 5 mg HSZ PRN PO 05/22/18 17:15 06/21/18 17:14 Diphenhydramine HCl (Benadryl Cap) 25 mg Q4HWA PRN PO 05/22/18 18:00 06/21/18 17:59 Ranitidine HCl (zANTac TAB) 150 mg BID PO 05/22/18 21:00 06/21/18 17:59 05/30/18 10:09 150 MG Dexamethasone (Decadron Tab) 40 mg DAILY PO 05/29/18 09:00 06/28/18 08:59 05/30/18 08:02 40 MG Objective Vital Signs Date Time Temp Pulse Resp B/P (MAP) Pulse Ox O2 Delivery O2 Flow Rate FiO2 05/30/18 08:30 Room Air 05/30/18 07:43 36.7 57 18 130/77 (94) 96 Room Air 05/30/18 00:00 Room Air 05/29/18 23:22 36.5 53 18 128/75 (92) 97 Room Air 05/29/18 17:25 148/68 (94) 05/29/18 16:00 Room Air 05/29/18 15:56 36.8 66 18 132/83 (99) 96 Room Air Physical Exam General Appearance: WD/WN, no apparent distress Respiratory/Chest: lungs clear, normal breath sounds, no respiratory distress, no accessory muscle use Cardiovascular: regular rate, rhythm, no edema Abdomen: non tender, soft Extremities: + pertinent finding (multiple stable ecchymoses on right and left arms) Neurologic/Psychiatric: alert, normal mood/affect, oriented x 3 Laboratory Results Last 24 Hours Test 05/30/18 06:31 05/30/18 08:00 White Blood Count 25.01 K/uL Red Blood Count 4.70 M/uL Hemoglobin 14.2 g/dL Hematocrit 41.8 % Mean Corpuscular Volume 88.9 fL Mean Corpuscular Hemoglobin 30.2 pg Mean Corpuscular Hemoglobin Concent 34.0 g/dl Platelet Count 3 K/uL Neutrophils (%) (Auto) 83.4 % Lymphocytes (%) (Auto) 4.4 % Monocytes (%) (Auto) 8.5 % Eosinophils (%) (Auto) 0.0 % Basophils (%) (Auto) 0.2 % Neutrophils # (Auto) 20.86 K/uL Lymphocytes # (Auto) 1.10 K/uL Monocytes # (Auto) 2.12 K/uL Eosinophils # (Auto) 0.00 K/uL Basophils # (Auto) 0.06 K/uL RDW Standard Deviation 45.9 fL RDW Coefficient of Variation 14.1 % Immature Granulocyte % (Auto) 3.5 % Immature Granulocyte # (Auto) 0.87 K/uL Platelet Estimate SIGNIFIC DECREASED Stool Occult Blood NEGATIVE Assessment and Plan Mr. Sen is a 53 year old male with a past medical history of ITP since 2000 , HLD, GERD who presented as direct admit from the cancer center due to acute thrombocytopenia. Recently discharged from [facility] four days [employer] with plt count of 54K, found to have plt 3K on readmission. Refractory ITP, thrombocytopenia - Continue Decadron 40 mg daily - heme/onc following -> due for another dose of Nplate next week - given 2 minor episodes of bleeding, will order 2 platelets to hold in case of massive bleeding - currently stable, no indication for transfusion - Follow platelets every 24 hours - platelets increased from 2 to 3 today - general surgery following -> will go for splenectomy when plt count >50k or >20k if transfusing platelets perioperatively -> Will also require immunizations after splenectomy GERD - Continue Zantac 150 mg PO BID HLD - Continue low fat diet DVT: contraindicated due to low risk of clotting and very high risk of bleeding from chemical/mechanical anticoagulation Dispo: med/surg, pending improvement in platelet levels Code: FULL Resident Physician Supervision Note: I interviewed and examined the patient. Discussed with Dr. Aj and agree with findings and plan as documented in the note. Any exceptions or clarifications are listed here: None Documented By: Juan Askew feeling about the same - very brief nosebleed resolved. a little blood on toilet paper but nothing else vitals noted nad breathing unlabored bruising the same refractory ITP -continue current care, follow plt Resident Tracking Resident Involvement: Resident Care Provided Care Provided: Adult Hospital Medicine
[2018-05-30 15:30] VITALS: BP 131/81; PULSE 66; TEMP 36.5; O2SAT 99
[2018-05-30 22:47] VITALS: BP 134/76; PULSE 55; TEMP 36.6; O2SAT 97
[2018-05-31 07:18] VITALS: BP 135/82; PULSE 53; TEMP 36.7; O2SAT 96
[2018-05-31 07:28] LABS: HEMATOCRIT 41.2 % (42-52); HEMOGLOBIN 13.4 g/dL (14.0-18.0); MEAN CORPUSCULAR HEMOGLOBIN 29.3 pg (25-34); MEAN CORPUSCULAR HGB CONC 32.5 g/dl (32-36); RED CELL DISTRIBUTION WIDTH CV 14.3 % (11.5-14.5); RED CELL DISTRIBUTION WIDTH SD 46.8 fL (36.4-46.3); WHITE BLOOD COUNT 22.73 K/uL (4.8-10.8)
--- NOTE | 2018-05-31 07:40 | Family Medicine Progress Note ---
Progress Note Date of Service May 31, 2018. Subjective Pt evaluation today including: conversation w/ patient, physical exam, chart review, lab review, review of inpatient medication list Pain: No pain reported PO Intake: Tolerating PO intake Voiding: no voiding problems Mr. Sen reports he feels well today. He denies any further episodes of bleeding. He states the bruises on his arms seem to be resolving, and denies any new bruises. He has been eating and drinking normally. Constitutional: No fever, No chills Respiratory: No cough, No shortness of breath Cardiovascular: No chest pain, No edema Abdomen: No pain, No nausea, No vomiting Heme: + abnormal bleeding/bruising All Other Systems: Reviewed and Negative Medications Current Inpatient Medications Medications (Trade) Dose Ordered Sig/Kristine Route Start Time Stop Time Status Last Admin Dose Admin Acetaminophen (Tylenol Tab) 650 mg Q4H PRN PO 05/22/18 17:15 06/21/18 17:14 Al Hydrox/Mg Hydrox/Simethicone (Maalox Max Susp) 15 ml Q4H PRN PO 05/22/18 17:15 06/21/18 17:14 05/29/18 23:25 15 ML Ondansetron HCl (Zofran Inj) 4 mg Q6H PRN IV 05/22/18 17:15 06/21/18 17:14 05/22/18 18:54 4 MG Zolpidem Tartrate (Ambien Tab) 5 mg HSZ PRN PO 05/22/18 17:15 06/21/18 17:14 Diphenhydramine HCl (Benadryl Cap) 25 mg Q4HWA PRN PO 05/22/18 18:00 06/21/18 17:59 Ranitidine HCl (zANTac TAB) 150 mg BID PO 05/22/18 21:00 06/21/18 17:59 05/31/18 08:28 150 MG Dexamethasone (Decadron Tab) 40 mg DAILY PO 05/29/18 09:00 06/28/18 08:59 05/31/18 08:29 40 MG Objective Vital Signs Date Time Temp Pulse Resp B/P (MAP) Pulse Ox O2 Delivery O2 Flow Rate FiO2 05/31/18 07:40 Room Air 05/31/18 07:18 36.7 53 18 135/82 (99) 96 Room Air 05/30/18 22:47 36.6 55 18 134/76 (95) 97 Room Air 05/30/18 20:00 Room Air 05/30/18 16:20 Room Air 05/30/18 15:30 36.5 66 19 131/81 (98) 99 Room Air Physical Exam General Appearance: WD/WN, no apparent distress Respiratory/Chest: lungs clear, normal breath sounds, no respiratory distress, no accessory muscle use Cardiovascular: regular rate, rhythm, no edema Extremities: + pertinent finding (resolving ecchymoses on both arms) Neurologic/Psychiatric: alert, normal mood/affect, oriented x 3 Laboratory Results Last 24 Hours Test 05/31/18 06:01 White Blood Count 22.73 K/uL Red Blood Count 4.58 M/uL Hemoglobin 13.4 g/dL Hematocrit 41.2 % Mean Corpuscular Volume 90.0 fL Mean Corpuscular Hemoglobin 29.3 pg Mean Corpuscular Hemoglobin Concent 32.5 g/dl Platelet Count 7 K/uL Neutrophils (%) (Auto) 82.0 % Lymphocytes (%) (Auto) 4.7 % Monocytes (%) (Auto) 9.6 % Eosinophils (%) (Auto) 0.0 % Basophils (%) (Auto) 0.1 % Neutrophils # (Auto) 18.64 K/uL Lymphocytes # (Auto) 1.07 K/uL Monocytes # (Auto) 2.18 K/uL Eosinophils # (Auto) 0.00 K/uL Basophils # (Auto) 0.03 K/uL RDW Standard Deviation 46.8 fL RDW Coefficient of Variation 14.3 % Immature Granulocyte % (Auto) 3.6 % Immature Granulocyte # (Auto) 0.81 K/uL Platelet Estimate SIGNIFIC DECREASED Red Blood Cell Morphology Unremarkable Assessment and Plan Mr. Sen is a 53 year old male with a past medical history of ITP since 2000 , HLD, GERD who presented as direct admit from the cancer center due to acute thrombocytopenia. Recently discharged from [facility] four days [employer] with plt count of 54K, found to have plt 3K on readmission. Refractory ITP, thrombocytopenia - Continue Decadron 40 mg daily - heme/onc following -> due for another dose of Nplate next week - no further episodes of bleeding, no indication for transfusion - Follow platelets every 24 hours - platelets increased from 3 to 7 today, hopefully the start of exponential increase - general surgery following -> will go for splenectomy when plt count >50k or >20k if transfusing platelets perioperatively -> Will also require immunizations after splenectomy GERD - Continue Zantac 150 mg PO BID HLD - Continue low fat diet DVT: contraindicated due to low risk of clotting and very high risk of bleeding from chemical/mechanical anticoagulation Dispo: med/surg, pending improvement in platelet levels Code: FULL Resident Physician Supervision Note: I interviewed and examined the patient. Discussed with Dr. Aj and agree with findings and plan as documented in the note. Any exceptions or clarifications are listed here: None Documented By: Juan Askew feeling ok plt 7 vitals noted nad breathing unlabored no pallor or icterus ITP - plt 7. continue current care, continue to follow otherwise as above Resident Tracking Resident Involvement: Resident Care Provided Care Provided: Adult Hospital Medicine
[2018-05-31 07:56] LABS: PLATELET COUNT 7 K/uL (130-400)
[2018-05-31 07:57] LABS: BASO % 0.1 %; BASO ABS # 0.03 K/uL (0-0.2); IG# 0.81 K/uL (0.00-0.02); LYMPH % 4.7 %; LYMPH ABS # 1.07 K/uL (1.2-3.4); MONO % 9.6 %; MONO ABS # 2.18 K/uL (0.11-0.59); NEUT ABS # 18.64 K/uL (1.4-6.5)
[2018-05-31] MEDS: RANITIDINE HCL 150 MG TAB PO SCH ×2 (08:28→20:56)
[2018-05-31] MEDS: DEXAMETHASONE 4 MG TAB PO SCH (08:29)
--- NOTE | 2018-05-31 10:34 | HEME/ONC PROGRESS NOTE ---
DATE: 05/31/2018 DIAGNOSIS: Refractory idiopathic thrombocytopenic purpura. SUBJECTIVE: Yayo was seen at bedside this morning. Spirits are high. His platelet count is actually now at 7000. He had a mild episode of epistaxis yesterday, which caused considerable anxiety but otherwise doing well. He continues on high dose dexamethasone. PHYSICAL EXAMINATION: GENERAL: He is in no acute distress. VITAL SIGNS: Temperature 36.7, pulse 53, respiratory rate 18, blood pressure 135/82. SKIN: He has a few scattered ecchymoses but otherwise no evidence of petechiae. HEENT: Oral mucosa without erythema or ulceration. NECK: Supple. HEART: Regular rate and rhythm. LUNGS: Clear to auscultation. ABDOMEN: Soft, nontender, nondistended. EXTREMITIES: No clubbing, cyanosis, or edema. NEUROLOGIC: Grossly intact. LABORATORY DATA: WBC count 22,730, hemoglobin 13.4, platelet count 7000. Sodium 136, potassium 4.2, chloride 107, carbon dioxide 23, creatinine is 1.2, BUN 30. PLAN: Yayo will obviously remain in the hospital through tomorrow. Platelet count is the highest and has been in a while at 7000, hopefully continues to climb. The plan is to have him discharged soon so that he may receive outpatient Nplate. Until discharge, continue to monitor his counts daily. Dr. Wilhelm will return to service on Friday. Thank you again for assisting us in the care of this very pleasant gentleman.
--- NOTE | 2018-05-31 10:45 | Surgery Progress Note ---
Surgery Progress Note Date of Service May 31, 2018. Subjective + feeling well, No nausea, No vomiting No further nose bleeding Objective Vital Signs: Date Time Temp Pulse Resp B/P (MAP) Pulse Ox O2 Delivery O2 Flow Rate FiO2 05/31/18 07:40 Room Air 05/31/18 07:18 36.7 53 18 135/82 (99) 96 Room Air 05/30/18 22:47 36.6 55 18 134/76 (95) 97 Room Air 05/30/18 20:00 Room Air 05/30/18 16:20 Room Air 05/30/18 15:30 36.5 66 19 131/81 (98) 99 Room Air Abdomen: non tender, non distended, soft Laboratory Results: Results Past 24 Hours Test 05/31/18 06:01 Range/Units White Blood Count 22.73 4.8-10.8 K/uL Red Blood Count 4.58 4.7-6.1 M/uL Hemoglobin 13.4 14.0-18.0 g/dL Hematocrit 41.2 42-52 % Mean Corpuscular Volume 90.0 80-100 fL Mean Corpuscular Hemoglobin 29.3 25-34 pg Mean Corpuscular Hemoglobin Concent 32.5 32-36 g/dl Platelet Count 7 130-400 K/uL Neutrophils (%) (Auto) 82.0 % Lymphocytes (%) (Auto) 4.7 % Monocytes (%) (Auto) 9.6 % Eosinophils (%) (Auto) 0.0 % Basophils (%) (Auto) 0.1 % Neutrophils # (Auto) 18.64 1.4-6.5 K/uL Lymphocytes # (Auto) 1.07 1.2-3.4 K/uL Monocytes # (Auto) 2.18 0.11-0.59 K/uL Eosinophils # (Auto) 0.00 0-0.5 K/uL Basophils # (Auto) 0.03 0-0.2 K/uL RDW Standard Deviation 46.8 36.4-46.3 fL RDW Coefficient of Variation 14.3 11.5-14.5 % Immature Granulocyte % (Auto) 3.6 % Immature Granulocyte # (Auto) 0.81 0.00-0.02 K/uL Platelet Estimate SIGNIFIC DECREASED Red Blood Cell Morphology Unremarkable Assessment & Plan ITP undergoing medical management Plt count 7000 today Plan for splenectomy when platelet count reaches acceptable level Plans for immunization No active bleeding at present time
[2018-05-31 14:54] VITALS: BP 129/71; PULSE 67; TEMP 36.8; O2SAT 96
[2018-05-31 23:10] VITALS: BP 121/75; PULSE 51; TEMP 36.3; O2SAT 96
[2018-06-01 07:04] LABS: HEMATOCRIT 44.5 % (42-52); HEMOGLOBIN 14.7 g/dL (14.0-18.0); MEAN CELL VOLUME 90.1 fL (80-100); MEAN CORPUSCULAR HEMOGLOBIN 29.8 pg (25-34); PLATELET COUNT 5 K/uL (130-400); RED CELL DISTRIBUTION WIDTH CV 14.3 % (11.5-14.5); RED CELL DISTRIBUTION WIDTH SD 46.5 fL (36.4-46.3); WHITE BLOOD COUNT 22.51 K/uL (4.8-10.8)
[2018-06-01 07:05] LABS: BASO % 0.1 %; BASO ABS # 0.03 K/uL (0-0.2); IG# 0.83 K/uL (0.00-0.02); LYMPH % 5.6 %; LYMPH ABS # 1.27 K/uL (1.2-3.4); MONO % 8.5 %; MONO ABS # 1.92 K/uL (0.11-0.59); NEUT % 82.1 %; NEUT ABS # 18.46 K/uL (1.4-6.5)
[2018-06-01 07:25] VITALS: BP 132/77; PULSE 57; TEMP 36.8; O2SAT 97
--- NOTE | 2018-06-01 07:46 | Family Medicine Progress Note ---
Progress Note Date of Service Jun 01, 2018. Subjective Pt evaluation today including: conversation w/ patient, physical exam Pain: Denies pain PO Intake: Tolerating well Voiding: no voiding problems Patient feels well today. Is upset about decrease in platelet count this morning. Is excited about submitting jail paperwork today. Constitutional: No fever, No chills ENT: + unusual epistaxis (small, short-lived episodes ) Respiratory: No cough, No shortness of breath Cardiovascular: No chest pain Abdomen: + problem reported (looser stool than normal), No pain Musculoskeletal: No joint pain Male : No hematuria Heme: + abnormal bleeding/bruising Skin: + new/changing skin lesions All Other Systems: Reviewed and Negative Medications Current Inpatient Medications Medications (Trade) Dose Ordered Sig/Kristine Route Start Time Stop Time Status Last Admin Dose Admin Acetaminophen (Tylenol Tab) 650 mg Q4H PRN PO 05/22/18 17:15 06/21/18 17:14 Al Hydrox/Mg Hydrox/Simethicone (Maalox Max Susp) 15 ml Q4H PRN PO 05/22/18 17:15 06/21/18 17:14 05/29/18 23:25 15 ML Ondansetron HCl (Zofran Inj) 4 mg Q6H PRN IV 05/22/18 17:15 06/21/18 17:14 05/22/18 18:54 4 MG Zolpidem Tartrate (Ambien Tab) 5 mg HSZ PRN PO 05/22/18 17:15 06/21/18 17:14 Diphenhydramine HCl (Benadryl Cap) 25 mg Q4HWA PRN PO 05/22/18 18:00 06/21/18 17:59 Ranitidine HCl (zANTac TAB) 150 mg BID PO 05/22/18 21:00 06/21/18 17:59 06/01/18 08:25 150 MG Dexamethasone (Decadron Tab) 40 mg DAILY PO 05/29/18 09:00 06/28/18 08:59 06/01/18 08:24 40 MG Objective Vital Signs Date Time Temp Pulse Resp B/P (MAP) Pulse Ox O2 Delivery O2 Flow Rate FiO2 06/01/18 07:25 36.8 57 18 132/77 (95) 97 Room Air 7/29/18 23:35 Room Air 05/31/18 23:10 36.3 51 16 121/75 (90) 96 Room Air 05/31/18 15:50 Room Air 05/31/18 14:54 36.8 67 19 129/71 (90) 96 Room Air Physical Exam General Appearance: WD/WN, no apparent distress Eyes: PERRL, EOMI ENT: hearing grossly normal Respiratory/Chest: lungs clear, normal breath sounds, no respiratory distress, no accessory muscle use Cardiovascular: regular rate, rhythm, no edema, no murmur Abdomen: normal bowel sounds, non tender, soft Extremities: non-tender, no pedal edema, no calf tenderness Neurologic/Psychiatric: alert, normal mood/affect, oriented x 3 Skin: warm/dry, + pertinent finding (several resolving bruises across arm. New bruise on face near bottom lip) Laboratory Results Last Resulted 06/01/18 06:02 Red Blood Count 4.94, Mean Corpuscular Volume 90.1, Mean Corpuscular Hemoglobin 29.8, Mean Corpuscular Hemoglobin Concent 33.0, Neutrophils (%) (Auto) 82.1, Lymphocytes (%) (Auto) 5.6, Monocytes (%) (Auto) 8.5, Eosinophils (%) (Auto) 0.0 , Basophils (%) (Auto) 0.1, Neutrophils # (Auto) 18.46, Lymphocytes # (Auto) 1.27, Monocytes # (Auto) 1.92, Eosinophils # (Auto) 0.00, Basophils # (Auto) 0.03 Last Resulted 05/24/18 07:00 Assessment and Plan Mr. Sen is a 53yo M PMH of ITP since 2000, HLD, GERD who presented as direct admit from the cancer center due to acute thrombocytopenia. Recently discharged from [facility] four days [employer] with plt count of 54K, found to have plt 3K on readmission. Refractory ITP, thrombocytopenia - Decadron 40 mg daily - heme/onc following -> due for another dose of Nplate tomorrow with increased dose - no further episodes of bleeding, no indication for transfusion - Follow platelets every 24 hours - platelets decreased from 7 to 5 today - general surgery following -> will go for splenectomy when plt count >50k or >20k if transfusing platelets perioperatively -> Will also require immunizations after splenectomy GERD - Continue Zantac 150 mg PO BID HLD - Continue low fat diet DVT: contraindicated due to low risk of clotting and very high risk of bleeding from chemical/mechanical anticoagulation Dispo: med/surg, pending improvement in platelet levels Code: FULL Resident Tracking Resident Involvement: Resident Care Provided Care Provided: Adult Hospital Medicine Reviewed: Pt Seen/Exam by Me History frustrated about being stuck in the hospital. noted one small new bruise on the chin Constitutional: denies: fever Respiratory: negative: short of breath Cardiovascular: denies chest pain General Appearance: no apparent distress Respiratory: no respiratory distress Neurologic/Psychiatric: alert, oriented x 3 Skin Characteristics: other (bruises +) Assessment/Plan Resident Physician Supervision Note: I independently interviewed and examined the patient and verified the zamorano history and physical, reviewed labs and image studies, discussed the case with the resident Dr. Renae and agree with the findings and care plan.
[2018-06-01] MEDS: DEXAMETHASONE 4 MG TAB PO SCH (08:24)
[2018-06-01] MEDS: RANITIDINE HCL 150 MG TAB PO SCH ×2 (08:25→21:21)
[2018-06-01 15:01] VITALS: BP 126/71; PULSE 68; TEMP 36.5; O2SAT 96
--- NOTE | 2018-06-01 16:10 | Surgery Progress Note ---
Surgery Progress Note Date of Service Jun 01, 2018. Subjective refractory ITP, plt count to 7k yesterday, 5k today. No bleeding Objective Vital Signs: Date Time Temp Pulse Resp B/P (MAP) Pulse Ox O2 Delivery O2 Flow Rate FiO2 06/01/18 15:01 36.5 68 18 126/71 (89) 96 06/01/18 08:00 Room Air 06/01/18 07:25 36.8 57 18 132/77 (95) 97 Room Air 05/31/18 23:35 Room Air 05/31/18 23:10 36.3 51 16 121/75 (90) 96 Room Air General Appearance: WD/WN, no apparent distress Abdomen: normal bowel sounds, non tender, non distended, soft, no organomegaly , no pulsatile mass Laboratory Results: Results Past 24 Hours Test 06/01/18 06:02 Range/Units White Blood Count 22.51 4.8-10.8 K/uL Red Blood Count 4.94 4.7-6.1 M/uL Hemoglobin 14.7 14.0-18.0 g/dL Hematocrit 44.5 42-52 % Mean Corpuscular Volume 90.1 80-100 fL Mean Corpuscular Hemoglobin 29.8 25-34 pg Mean Corpuscular Hemoglobin Concent 33.0 32-36 g/dl Platelet Count 5 130-400 K/uL Neutrophils (%) (Auto) 82.1 % Lymphocytes (%) (Auto) 5.6 % Monocytes (%) (Auto) 8.5 % Eosinophils (%) (Auto) 0.0 % Basophils (%) (Auto) 0.1 % Neutrophils # (Auto) 18.46 1.4-6.5 K/uL Lymphocytes # (Auto) 1.27 1.2-3.4 K/uL Monocytes # (Auto) 1.92 0.11-0.59 K/uL Eosinophils # (Auto) 0.00 0-0.5 K/uL Basophils # (Auto) 0.03 0-0.2 K/uL RDW Standard Deviation 46.5 36.4-46.3 fL RDW Coefficient of Variation 14.3 11.5-14.5 % Immature Granulocyte % (Auto) 3.7 % Immature Granulocyte # (Auto) 0.83 0.00-0.02 K/uL Platelet Estimate SIGNIFIC DECREASED Assessment & Plan ITP, plt count 5k. agree with need for splenectomy. discussed with hematology , will plan on surgery when plt count>50k, or >20k if platelets available for transfusion perioperatively. if remains refractory may need transfer to tertiary center. plan for laparoscopic splenectomy when plt count >50k, or >20k if platelets available for transfusion perioperatively will need immunizations against pneumococcus, meningococcus, and HIB educated on opsi risks reviewed
--- NOTE | 2018-06-01 16:11 | Hematology/Oncology Prog Note ---
Hematology/Onc Progress Note Date of Service Jun 01, 2018. Diagnoses Refractory ITP Medications Medications Administered Medications (Trade) Dose Ordered Sig/Kristine Route Start Time Stop Time Status Last Admin Dose Admin Immune Globulin 20 gm/Empty Bag 200 ml @ 0 mls/hr 1700,1800,1900,2000,2100 IV 05/22/18 17:00 05/22/18 23:59 DC 05/22/18 23:00 480 MLS/HR Al Hydrox/Mg Hydrox/Simethicone (Maalox Max Susp) 15 ml Q4H PRN PO 05/22/18 17:15 06/21/18 17:14 05/29/18 23:25 15 ML Ondansetron HCl (Zofran Inj) 4 mg Q6H PRN IV 05/22/18 17:15 06/21/18 17:14 05/22/18 18:54 4 MG Ranitidine HCl (zANTac TAB) 150 mg BID PO 05/22/18 21:00 06/21/18 17:59 06/01/18 08:25 150 MG Immune Globulin 20 gm/Empty Bag 200 ml @ 0 mls/hr TODAY@1000,1100,1200,1300,1400 IV 05/23/18 10:00 05/23/18 14:01 [place] 05/23/18 16:19 200 MLS/HR Methylprednisolone Sodium Succinate 60 mg/Syringe 0.96 ml @ 1.5 mls/min BID IV 05/23/18 09:00 05/28/18 09:51 [place] 05/28/18 08:00 1.5 MLS/MIN Romiplostim 102.5 mcg/Syringe 0.205 ml @ 0 mls/sec TODAY@1130 [place] 05/26/18 11:30 05/26/18 13:00 [place] 05/26/18 11:29 102.5 MLS/SEC Immune Globulin 20 gm/Empty Bag 200 ml @ 0 mls/hr TODAY@0900,1000,1100,1200,1300 IV 05/27/18 09:00 05/27/18 13:01 [place] 05/28/18 05:02 61.2 MLS/HR Dexamethasone (Decadron Tab) 40 mg NOW ONCE PO 05/28/18 10:00 05/28/18 10:03 DC 05/28/18 10:30 40 MG Dexamethasone (Decadron Tab) 40 mg DAILY PO 05/29/18 09:00 06/28/18 08:59 06/01/18 08:24 40 MG Subjective Mr. Sen is unchanged. He continues to have brief, self-limited, small- volume nosebleeds. He denies any major bleeding. Review of Systems: Constitutional: No fever ENT: + unusual epistaxis Respiratory: No cough, No hemoptysis Cardiovascular: No chest pain Abdomen: No pain, No GI bleeding Male : No hematuria Heme: No abnormal bleeding/bruising Skin: No rash Vital Signs Vital Signs Past 12 Hours Date Time Temp Pulse Resp B/P (MAP) Pulse Ox O2 Delivery O2 Flow Rate FiO2 06/01/18 15:01 36.5 68 18 126/71 (89) 96 06/01/18 08:00 Room Air 06/01/18 07:25 36.8 57 18 132/77 (95) 97 Room Air Physical Exam Constitutional: General Apperance: heathly-appearing Level of Distress: NAD Psychiatric: Mental Status: active & alert Orientation: oriented except where noted ENMT: pharynx normal (no purpura) Lungs: Auscuitation: breath sounds normal Cardiovascular: Heart Auscultation: RRR Abdomen: Inspection & Palpation: soft, no tenderness, guarding & rebound Extremities: no edema Laboratory Last 24 Hours Test 06/01/18 06:02 White Blood Count 22.51 K/uL Red Blood Count 4.94 M/uL Hemoglobin 14.7 g/dL Hematocrit 44.5 % Mean Corpuscular Volume 90.1 fL Mean Corpuscular Hemoglobin 29.8 pg Mean Corpuscular Hemoglobin Concent 33.0 g/dl Platelet Count 5 K/uL Neutrophils (%) (Auto) 82.1 % Lymphocytes (%) (Auto) 5.6 % Monocytes (%) (Auto) 8.5 % Eosinophils (%) (Auto) 0.0 % Basophils (%) (Auto) 0.1 % Neutrophils # (Auto) 18.46 K/uL Lymphocytes # (Auto) 1.27 K/uL Monocytes # (Auto) 1.92 K/uL Eosinophils # (Auto) 0.00 K/uL Basophils # (Auto) 0.03 K/uL RDW Standard Deviation 46.5 fL RDW Coefficient of Variation 14.3 % Immature Granulocyte % (Auto) 3.7 % Immature Granulocyte # (Auto) 0.83 K/uL Platelet Estimate SIGNIFIC DECREASED Assessment & Plan He will be due for another dose of Nplate tomorrow and I will increase his dose , as we got minimal response from his first dose. For now, the plan remains to try to get his counts into a range where surgery is feasible and then to take him for splenectomy. I would continue with daily labs and transfusions only in the context of severe, life-threatening bleeding.
[2018-06-01 23:31] VITALS: BP 128/71; PULSE 63; TEMP 36.4; O2SAT 97
[2018-06-02 06:59] LABS: HEMATOCRIT 41.7 % (42-52); HEMOGLOBIN 13.8 g/dL (14.0-18.0); MEAN CELL VOLUME 88.5 fL (80-100); MEAN CORPUSCULAR HEMOGLOBIN 29.3 pg (25-34); MEAN CORPUSCULAR HGB CONC 33.1 g/dl (32-36); PLATELET COUNT 2 K/uL (130-400); RED CELL DISTRIBUTION WIDTH CV 14.2 % (11.5-14.5); RED CELL DISTRIBUTION WIDTH SD 46.5 fL (36.4-46.3); WHITE BLOOD COUNT 21.71 K/uL (4.8-10.8)
[2018-06-02 07:23] LABS: BASO % 0.1 %; BASO ABS # 0.02 K/uL (0-0.2); LYMPH % 6.4 %; LYMPH ABS # 1.38 K/uL (1.2-3.4); MONO % 8.2 %; MONO ABS # 1.77 K/uL (0.11-0.59); NEUT % 81.6 %; NEUT ABS # 17.74 K/uL (1.4-6.5)
[2018-06-02 08:04] VITALS: BP 134/79; PULSE 55; TEMP 36.9; O2SAT 99
[2018-06-02] MEDS: DEXAMETHASONE 4 MG TAB PO SCH (08:19)
[2018-06-02] MEDS: RANITIDINE HCL 150 MG TAB PO SCH ×2 (08:19→20:48)
[2018-06-02] MEDS ORDERED: ROMIPLOSTIM SUBD ONE (08:45)
--- NOTE | 2018-06-02 11:39 | Surgery Progress Note ---
Surgery Progress Note Date of Service Jun 02, 2018. Subjective + feeling well, + ambulating, + pain controlled, + diet (Regular diet), No nausea, No vomiting patient reports some mild gum bleeding this AM (resolved) Objective Vital Signs: Date Time Temp Pulse Resp B/P (MAP) Pulse Ox O2 Delivery O2 Flow Rate FiO2 06/02/18 08:04 36.9 55 18 134/79 (97) 99 Room Air 06/02/18 08:00 Room Air 06/01/18 23:47 Room Air 06/01/18 23:31 36.4 63 19 128/71 (90) 97 Room Air 06/01/18 17:00 Room Air 06/01/18 15:01 36.5 68 18 126/71 (89) 96 General Appearance: WD/WN, no apparent distress Head: normocephalic, atraumatic Respiratory/Chest: no respiratory distress Laboratory Results: Results Past 24 Hours Test 06/02/18 06:10 Range/Units White Blood Count 21.71 4.8-10.8 K/uL Red Blood Count 4.71 4.7-6.1 M/uL Hemoglobin 13.8 14.0-18.0 g/dL Hematocrit 41.7 42-52 % Mean Corpuscular Volume 88.5 80-100 fL Mean Corpuscular Hemoglobin 29.3 25-34 pg Mean Corpuscular Hemoglobin Concent 33.1 32-36 g/dl Platelet Count 2 130-400 K/uL Neutrophils (%) (Auto) 81.6 % Lymphocytes (%) (Auto) 6.4 % Monocytes (%) (Auto) 8.2 % Eosinophils (%) (Auto) 0.0 % Basophils (%) (Auto) 0.1 % Neutrophils # (Auto) 17.74 1.4-6.5 K/uL Lymphocytes # (Auto) 1.38 1.2-3.4 K/uL Monocytes # (Auto) 1.77 0.11-0.59 K/uL Eosinophils # (Auto) 0.00 0-0.5 K/uL Basophils # (Auto) 0.02 0-0.2 K/uL RDW Standard Deviation 46.5 36.4-46.3 fL RDW Coefficient of Variation 14.2 11.5-14.5 % Immature Granulocyte % (Auto) 3.7 % Immature Granulocyte # (Auto) 0.80 0.00-0.02 K/uL Platelet Estimate SIGNIFIC DECREASED Assessment & Plan Refractory ITP Platelets down to 2k from 5k yesterday. Nplate today per hematology - increased dose - will await response. Patient and expressing growing frustration that his platelet counts are not rising - would like to consider surgical options at a tertiary facility. I believe this would be reasonable if patient continues to have no response with Nplate today. Will await input from hematology and coordinate as necessary. Will discuss findings with Dr. Valenzuela. Please contact with questions or concerns. ITP refractory to IVIG, steroids. Abdomen soft, non-distended, non-tender. Tolerating regular diet, no N/V. + flatus. Plt count down to 1k this AM. IVIG still infusing. Stable. Will continue to monitor.
--- NOTE | 2018-06-02 11:53 | Family Medicine Progress Note ---
Progress Note Date of Service Jun 02, 2018. Subjective Pt evaluation today including: conversation w/ patient, physical exam, chart review, lab review Pain: denies pain PO Intake: Tolerating well, bleeding gums after eating Voiding: no voiding problems Patient in low spirits today with news of lower platelets again. He is starting to become concerned as he is having worsening nosebleeds and has started to bleed from his gums after eating. Constitutional: No fever, No chills ENT: + unusual epistaxis, + problem reported (bleeding gums) Respiratory: No cough, No hemoptysis Cardiovascular: No chest pain Abdomen: No GI bleeding Male : No hematuria All Other Systems: Reviewed and Negative Medications Current Inpatient Medications Medications (Trade) Dose Ordered Sig/Kristine Route Start Time Stop Time Status Last Admin Dose Admin Acetaminophen (Tylenol Tab) 650 mg Q4H PRN PO 05/22/18 17:15 06/21/18 17:14 Al Hydrox/Mg Hydrox/Simethicone (Maalox Max Susp) 15 ml Q4H PRN PO 05/22/18 17:15 06/21/18 17:14 05/29/18 23:25 15 ML Ondansetron HCl (Zofran Inj) 4 mg Q6H PRN IV 05/22/18 17:15 06/21/18 17:14 05/22/18 18:54 4 MG Zolpidem Tartrate (Ambien Tab) 5 mg HSZ PRN PO 05/22/18 17:15 06/21/18 17:14 Diphenhydramine HCl (Benadryl Cap) 25 mg Q4HWA PRN PO 05/22/18 18:00 06/21/18 17:59 Ranitidine HCl (zANTac TAB) 150 mg BID PO 05/22/18 21:00 06/21/18 17:59 06/02/18 08:19 150 MG Dexamethasone (Decadron Tab) 40 mg DAILY PO 05/29/18 09:00 06/28/18 08:59 06/02/18 08:19 40 MG Romiplostim 200 mcg/Syringe 0.4 ml @ 0 mls/sec TODAY@1400 SC 06/02/18 14:00 06/02/18 18:00 Objective Vital Signs Date Time Temp Pulse Resp B/P (MAP) Pulse Ox O2 Delivery O2 Flow Rate FiO2 06/02/18 08:04 36.9 55 18 134/79 (97) 99 Room Air 06/02/18 08:00 Room Air 06/01/18 23:47 Room Air 06/01/18 23:31 36.4 63 19 128/71 (90) 97 Room Air 06/01/18 17:00 Room Air 06/01/18 15:01 36.5 68 18 126/71 (89) 96 Physical Exam General Appearance: WD/WN, no apparent distress Eyes: PERRL, EOMI ENT: hearing grossly normal Neck: no carotid bruits, trachea midline Respiratory/Chest: lungs clear, normal breath sounds, no respiratory distress, no accessory muscle use Cardiovascular: regular rate, rhythm, no edema, no murmur Abdomen: non tender, soft Extremities: normal range of motion, no pedal edema, no calf tenderness Neurologic/Psychiatric: utility agent II-XII nml as tested, no motor/sensory deficits, alert, normal mood/affect, oriented x 3 Skin: + pertinent finding (numerous bruises of various stages across arms and face) Laboratory Results Last Resulted 06/02/18 06:10 Red Blood Count 4.71, Mean Corpuscular Volume 88.5, Mean Corpuscular Hemoglobin 29.3, Mean Corpuscular Hemoglobin Concent 33.1, Neutrophils (%) (Auto) 81.6, Lymphocytes (%) (Auto) 6.4, Monocytes (%) (Auto) 8.2, Eosinophils (%) (Auto) 0.0 , Basophils (%) (Auto) 0.1, Neutrophils # (Auto) 17.74, Lymphocytes # (Auto) 1.38, Monocytes # (Auto) 1.77, Eosinophils # (Auto) 0.00, Basophils # (Auto) 0.02 Last Resulted 05/24/18 07:00 Assessment and Plan Mr. Sen is a 53yo M PMH of ITP since 2000, HLD, GERD who presented as direct admit from the cancer center due to acute thrombocytopenia. Recently discharged from [facility] four days [employer] with plt count of 54K, found to have plt 3K on readmission. Refractory ITP, thrombocytopenia - Decadron 40 mg daily - heme/onc following -> due for another dose of Nplate today - Follow platelets every 24 hours - platelets decreased from 5 to 2 today - general surgery following -> will go for splenectomy when plt count >50k or >20k if transfusing platelets perioperatively -> Will also require immunizations after splenectomy Nose and gum bleeding - Sec to ITP. Resolved. Follow. GERD - Continue Zantac 150 mg PO BID HLD - Continue low fat diet DVT: contraindicated due to low risk of clotting and very high risk of bleeding from chemical/mechanical anticoagulation Dispo: med/surg, pending improvement in platelet levels Code: FULL Resident Tracking Resident Involvement: Resident Care Provided Care Provided: Adult Hospital Medicine Reviewed: Pt Seen/Exam by Me History had nose bleed last night. some bleeding from his gum as well Constitutional: denies: fever Respiratory: negative: short of breath Cardiovascular: denies chest pain General Appearance: no apparent distress Respiratory: lungs clear, no respiratory distress Cardiovascular: regular rate, rhythm Neurologic/Psychiatric: alert, oriented x 3 Assessment/Plan Resident Physician Supervision Note: I independently interviewed and examined the patient and verified the zamorano history and physical, reviewed labs and image studies, discussed the case with the resident Dr. Renae and agree with the findings and care plan.
[2018-06-02] MEDS ORDERED: ROMIPLOSTIM SC SCH (14:00)
[2018-06-02 14:57] VITALS: BP 138/69; PULSE 63; TEMP 36.8; O2SAT 96
[2018-06-02 17:58] VITALS: BP 109/65; PULSE 76; TEMP 36.7; O2SAT 96
[2018-06-02] MEDS: ALUMINUM/MAGNESIUM/SIMETH (MAALOX MAX) 30 ML UDC PO PRN (18:18)
[2018-06-02 20:53] VITALS: BP 133/71; PULSE 78
[2018-06-02 23:03] VITALS: BP 110/62; PULSE 59; TEMP 36.4; O2SAT 94
[2018-06-03] VITALS (8 sets, daily range): BP systolic 122–160; BP diastolic 71–89; PULSE 52–102; TEMP 36.4–36.7; O2SAT 94–97
[2018-06-03 07:13] LABS: HEMATOCRIT 41.4 % (42-52); HEMOGLOBIN 13.8 g/dL (14.0-18.0); MEAN CELL VOLUME 88.8 fL (80-100); MEAN CORPUSCULAR HEMOGLOBIN 29.6 pg (25-34); MEAN CORPUSCULAR HGB CONC 33.3 g/dl (32-36); RED CELL DISTRIBUTION WIDTH CV 14.4 % (11.5-14.5); RED CELL DISTRIBUTION WIDTH SD 46.3 fL (36.4-46.3); WHITE BLOOD COUNT 22.84 K/uL (4.8-10.8)
[2018-06-03 07:23] LABS: BASO % 0.1 %; BASO ABS # 0.03 K/uL (0-0.2); IG# 0.66 K/uL (0.00-0.02); LYMPH % 4.9 %; LYMPH ABS # 1.12 K/uL (1.2-3.4); MONO % 8.1 %; MONO ABS # 1.85 K/uL (0.11-0.59); NEUT ABS # 19.18 K/uL (1.4-6.5); PLATELET COUNT 2 K/uL (130-400)
[2018-06-03] MEDS: RANITIDINE HCL 150 MG TAB PO SCH ×2 (08:15→20:18)
[2018-06-03] MEDS: DEXAMETHASONE 4 MG TAB PO SCH (08:16)
[2018-06-03] MEDS ORDERED: OXYMETAZOLINE HCL 0.05% NA SPR 15 ML BTL PRN (12:30)
[2018-06-03] MEDS ORDERED: AMINOCAPROIC ACID IV ONE (13:33)
[2018-06-03] MEDS ORDERED: DEXTROSE 5% IV ONE (13:33)
--- NOTE | 2018-06-03 13:41 | Family Medicine Progress Note ---
Progress Note Date of Service Jun 03, 2018. Subjective Pt evaluation today including: conversation w/ patient, physical exam, lab review, conversation w/ sales development consultant Pain: Denies pain PO Intake: Tolerating well Voiding: no voiding problems Patient in better spirits today. Was reassured by conversation with Dr. Vicky Licona today and trusts his numbers will rise. Constitutional: No fever, No chills ENT: + unusual epistaxis Respiratory: + cough Cardiovascular: No chest pain Abdomen: + GI bleeding (NC bleeding ?hemorrhoid), No pain, No nausea Male : No hematuria Skin: + problem reported (increased bruising) Medications Current Inpatient Medications Medications (Trade) Dose Ordered Sig/Kristine Route Start Time Stop Time Status Last Admin Dose Admin Acetaminophen (Tylenol Tab) 650 mg Q4H PRN PO 05/22/18 17:15 06/21/18 17:14 Al Hydrox/Mg Hydrox/Simethicone (Maalox Max Susp) 15 ml Q4H PRN PO 05/22/18 17:15 06/21/18 17:14 06/02/18 18:18 15 ML Ondansetron HCl (Zofran Inj) 4 mg Q6H PRN IV 05/22/18 17:15 06/21/18 17:14 05/22/18 18:54 4 MG Zolpidem Tartrate (Ambien Tab) 5 mg HSZ PRN PO 05/22/18 17:15 06/21/18 17:14 Diphenhydramine HCl (Benadryl Cap) 25 mg Q4HWA PRN PO 05/22/18 18:00 06/21/18 17:59 Ranitidine HCl (zANTac TAB) 150 mg BID PO 05/22/18 21:00 06/21/18 17:59 06/03/18 08:15 150 MG Dexamethasone (Decadron Tab) 40 mg DAILY PO 05/29/18 09:00 06/28/18 08:59 06/03/18 08:16 40 MG Oxymetazoline HCl (Afrin 0.05% Nasal [place]) 1 sprays Q8H PRN NA 06/03/18 12:30 07/03/18 12:29 06/03/18 12:43 1 SPRAYS Objective Vital Signs Date Time Temp Pulse Resp B/P (MAP) Pulse Ox O2 Delivery O2 Flow Rate FiO2 06/03/18 08:56 Room Air 06/03/18 07:36 36.7 55 17 122/80 (94) 96 Room Air 06/03/18 00:01 Room Air 06/02/18 23:03 36.4 59 18 110/62 (78) 94 Room Air 06/02/18 20:53 78 133/71 (91) 06/02/18 17:58 36.7 76 18 109/65 (80) 96 Room Air 06/02/18 16:45 Room Air 06/02/18 14:57 36.8 63 18 138/69 (92) 96 Room Air Physical Exam General Appearance: WD/WN, no apparent distress Eyes: EOMI ENT: hearing grossly normal Respiratory/Chest: lungs clear, normal breath sounds Cardiovascular: regular rate, rhythm, no edema, no murmur Abdomen: non tender, soft Neurologic/Psychiatric: no motor/sensory deficits, alert, oriented x 3 Skin: + pertinent finding (diffuse bruises at different stages across body) Laboratory Results Last Resulted 05/24/18 07:00 Assessment and Plan Mr. Sen is a 53yo M PMH of ITP since 2000, HLD, GERD who presented as direct admit from the cancer center due to acute thrombocytopenia. Recently discharged from [facility] four days [employer] with plt count of 54K, found to have plt 3K on readmission. Refractory ITP, thrombocytopenia - Decadron 40 mg daily - heme/onc following -> Nplate injection yesterday - Follow platelets every 24 hours - platelets stable at 2 today - general surgery following -> will go for splenectomy when plt count >50k or >20k if transfusing platelets perioperatively -> Will also require immunizations after splenectomy Nose and gum bleeding - Sec to ITP. - Pt had sustained posterior nosebleed this afternoon. Advised patient to pinch nose, chin to chest positioning with legs over side of bed - Dr. Squires spoke with ED physician (Dr. Alonzo) who advised that RhinoRocket may cause more trauma. - Called ENT physician aviation project manager (Dr. Penaloza) who recommended Balloon pack x 5 days in nose if needed - Discussed with Dr. Wilhelm (hematology) who advised use of amicar to help stop bleeding. Given 5gms. - Vitals were obtained q15min during event, non-concerning. GERD - Continue Zantac 150 mg PO BID HLD - Continue low fat diet DVT: contraindicated due to low risk of clotting and very high risk of bleeding from chemical/mechanical anticoagulation Dispo: med/surg, pending improvement in platelet levels Code: FULL Resident Tracking Resident Involvement: Resident Care Provided Care Provided: Adult Hospital Medicine Reviewed: Pt Seen/Exam by Me History had nose bleed this afternoon. Constitutional: denies: fever Respiratory: negative: short of breath Cardiovascular: denies chest pain General Appearance: no apparent distress Respiratory: no respiratory distress Cardiovascular: regular rate, rhythm Neurologic/Psychiatric: alert Assessment/Plan Resident Physician Supervision Note: I independently interviewed and examined the patient and verified the zamorano history and physical, reviewed labs and image studies, discussed the case with the resident Dr. Renae and agree with the findings and care plan.
[2018-06-03 14:13] LABS: HEMATOCRIT 43.7 % (42-52); HEMOGLOBIN 14.8 g/dL (14.0-18.0); MEAN CELL VOLUME 88.8 fL (80-100); MEAN CORPUSCULAR HEMOGLOBIN 30.1 pg (25-34); MEAN CORPUSCULAR HGB CONC 33.9 g/dl (32-36); PLATELET COUNT 2 K/uL (130-400); RED CELL DISTRIBUTION WIDTH CV 14.6 % (11.5-14.5); RED CELL DISTRIBUTION WIDTH SD 46.8 fL (36.4-46.3); WHITE BLOOD COUNT 25.91 K/uL (4.8-10.8)
[2018-06-03 14:26] LABS: BASO % 0.1 %; BASO ABS # 0.02 K/uL (0-0.2); IG# 0.75 K/uL (0.00-0.02); LYMPH % 2.4 %; LYMPH ABS # 0.61 K/uL (1.2-3.4); MONO % 4.5 %; MONO ABS # 1.17 K/uL (0.11-0.59); NEUT % 90.1 %; NEUT ABS # 23.36 K/uL (1.4-6.5)
--- NOTE | 2018-06-03 16:38 | Surgery Progress Note ---
Surgery Progress Note Date of Service Jun 03, 2018. Subjective Refractory ITP, plt 2k today. Nose bleed earlier today, has some blood on toilet paper and heme + stool but hct stable. Objective Vital Signs: Date Time Temp Pulse Resp B/P (MAP) Pulse Ox O2 Delivery O2 Flow Rate FiO2 06/03/18 15:17 36.5 66 16 137/74 (95) 95 Room Air 06/03/18 14:09 36.4 77 18 147/82 (103) 94 Room Air 06/03/18 13:52 82 160/89 (112) 06/03/18 13:35 82 153/82 (105) 06/03/18 13:21 82 20 129/77 (94) 95 06/03/18 13:05 102 130/72 (91) 06/03/18 08:56 Room Air 06/03/18 07:36 36.7 55 17 122/80 (94) 96 Room Air 06/03/18 00:01 Room Air 06/02/18 23:03 36.4 59 18 110/62 (78) 94 Room Air 06/02/18 20:53 78 133/71 (91) 06/02/18 17:58 36.7 76 18 109/65 (80) 96 Room Air 06/02/18 16:45 Room Air General Appearance: WD/WN, no apparent distress Abdomen: normal bowel sounds, non tender, non distended, soft, no organomegaly , no pulsatile mass Laboratory Results: Results Past 24 Hours Test 06/02/18 19:50 06/03/18 06:23 06/03/18 13:55 Range/Units Stool Occult Blood POSITIVE NEGATIVE White Blood Count 22.84 25.91 4.8-10.8 K/uL Red Blood Count 4.66 4.92 4.7-6.1 M/uL Hemoglobin 13.8 14.8 14.0-18.0 g/dL Hematocrit 41.4 43.7 42-52 % Mean Corpuscular Volume 88.8 88.8 80-100 fL Mean Corpuscular Hemoglobin 29.6 30.1 25-34 pg Mean Corpuscular Hemoglobin Concent 33.3 33.9 32-36 g/dl Platelet Count 2 2 130-400 K/uL Neutrophils (%) (Auto) 84.0 90.1 % Lymphocytes (%) (Auto) 4.9 2.4 % Monocytes (%) (Auto) 8.1 4.5 % Eosinophils (%) (Auto) 0.0 0.0 % Basophils (%) (Auto) 0.1 0.1 % Neutrophils # (Auto) 19.18 23.36 1.4-6.5 K/uL Lymphocytes # (Auto) 1.12 0.61 1.2-3.4 K/uL Monocytes # (Auto) 1.85 1.17 0.11-0.59 K/uL Eosinophils # (Auto) 0.00 0.00 0-0.5 K/uL Basophils # (Auto) 0.03 0.02 0-0.2 K/uL RDW Standard Deviation 46.3 46.8 36.4-46.3 fL RDW Coefficient of Variation 14.4 14.6 11.5-14.5 % Immature Granulocyte % (Auto) 2.9 2.9 % Immature Granulocyte # (Auto) 0.66 0.75 0.00-0.02 K/uL Platelet Estimate SIGNIFIC DECREASED SIGNIFIC DECREASED Assessment & Plan ITP, plt count 2k. agree with need for splenectomy when platelet count higher. Spoke with Dr. King, he expects response to Nplate. plan for laparoscopic splenectomy when plt count >50k, or >20k if platelets available for transfusion perioperatively will need immunizations against pneumococcus, meningococcus, and HIB. Since surgery will likely not be this week, may consider pre op immunizations, consider ID consult educated on opsi risks reviewed surgery will follow peripherally, call me when plt count increases significantly or with questions or concerns
[2018-06-04 06:18] LABS: HEMATOCRIT 41.6 % (42-52); HEMOGLOBIN 13.8 g/dL (14.0-18.0); MEAN CELL VOLUME 89.3 fL (80-100); MEAN CORPUSCULAR HEMOGLOBIN 29.6 pg (25-34); MEAN CORPUSCULAR HGB CONC 33.2 g/dl (32-36); PLATELET COUNT 1 K/uL (130-400); RED CELL DISTRIBUTION WIDTH CV 14.6 % (11.5-14.5); RED CELL DISTRIBUTION WIDTH SD 46.8 fL (36.4-46.3); WHITE BLOOD COUNT 24.57 K/uL (4.8-10.8)
[2018-06-04 06:19] LABS: BASO % 0.1 %; BASO ABS # 0.02 K/uL (0-0.2); EOS ABS # 0.01 K/uL (0-0.5); IG# 0.54 K/uL (0.00-0.02); LYMPH % 4.3 %; LYMPH ABS # 1.05 K/uL (1.2-3.4); MONO % 7.7 %; NEUT % 85.7 %; NEUT ABS # 21.05 K/uL (1.4-6.5)
[2018-06-04 07:01] VITALS: BP 128/75; PULSE 49; TEMP 36.6; O2SAT 98
[2018-06-04] MEDS: RANITIDINE HCL 150 MG TAB PO SCH ×2 (09:05→21:21)
[2018-06-04] MEDS: DEXAMETHASONE 4 MG TAB PO SCH (09:05)
--- NOTE | 2018-06-04 10:12 | Family Medicine Progress Note ---
Progress Note Date of Service Jun 04, 2018. Subjective Pt evaluation today including: conversation w/ patient, physical exam, lab review Pain: Denies pain PO Intake: Tolerating well Voiding: no voiding problems Patient very frustrated today with plt count and lack of response to Nplate. He states he can't stay in the hospital indefinitely without any plan to change the course for another 3 weeks when the nplate is finished. He would like to speak with hematology and general surgery. Constitutional: No fever, No chills ENT: No unusual epistaxis, No dental problems Respiratory: No cough Cardiovascular: No chest pain Abdomen: No GI bleeding Male : No hematuria Psychiatric: + anhedonism Heme: + abnormal bleeding/bruising, + clotting problems All Other Systems: Reviewed and Negative Medications Current Inpatient Medications Medications (Trade) Dose Ordered Sig/Kristine Route Start Time Stop Time Status Last Admin Dose Admin Acetaminophen (Tylenol Tab) 650 mg Q4H PRN PO 05/22/18 17:15 06/21/18 17:14 Al Hydrox/Mg Hydrox/Simethicone (Maalox Max Susp) 15 ml Q4H PRN PO 05/22/18 17:15 06/21/18 17:14 06/02/18 18:18 15 ML Ondansetron HCl (Zofran Inj) 4 mg Q6H PRN IV 05/22/18 17:15 06/21/18 17:14 05/22/18 18:54 4 MG Diphenhydramine HCl (Benadryl Cap) 25 mg Q4HWA PRN PO 05/22/18 18:00 06/21/18 17:59 Ranitidine HCl (zANTac TAB) 150 mg BID PO 05/22/18 21:00 06/21/18 17:59 06/04/18 09:05 150 MG Dexamethasone (Decadron Tab) 40 mg DAILY PO 05/29/18 09:00 06/28/18 08:59 06/04/18 09:05 40 MG Oxymetazoline HCl (Afrin 0.05% Nasal [place]) 1 sprays Q8H PRN NA 06/03/18 12:30 07/03/18 12:29 06/03/18 12:43 1 SPRAYS Eszopiclone (Lunesta Tab) 1 mg HSZ PRN PO 06/04/18 14:00 9/1/18 13:59 Objective Vital Signs Date Time Temp Pulse Resp B/P (MAP) Pulse Ox O2 Delivery O2 Flow Rate FiO2 06/04/18 15:04 36.6 84 18 136/84 (101) 97 Room Air 06/04/18 08:00 Room Air 06/04/18 07:01 36.6 49 18 128/75 (92) 98 Room Air 06/03/18 23:17 36.7 52 18 124/71 (88) 97 Room Air 06/03/18 20:00 Room Air Physical Exam General Appearance: WD/WN, no apparent distress Eyes: PERRL, EOMI ENT: hearing grossly normal Neck: no JVD, no carotid bruits, trachea midline Respiratory/Chest: lungs clear, normal breath sounds, no respiratory distress, no accessory muscle use Cardiovascular: regular rate, rhythm, no edema, no murmur Abdomen: non tender, soft Extremities: normal inspection, no pedal edema Neurologic/Psychiatric: alert, oriented x 3, + pertinent finding (Patient visibly frustrated by scenario) Skin: normal color, + pertinent finding (numerous bruises noted on arms, face, trunk in various stages of healing) Laboratory Results Last Resulted 06/04/18 05:42 Red Blood Count 4.66, Mean Corpuscular Volume 89.3, Mean Corpuscular Hemoglobin 29.6, Mean Corpuscular Hemoglobin Concent 33.2, Neutrophils (%) (Auto) 85.7, Lymphocytes (%) (Auto) 4.3, Monocytes (%) (Auto) 7.7, Eosinophils (%) (Auto) 0.0 , Basophils (%) (Auto) 0.1, Neutrophils # (Auto) 21.05, Lymphocytes # (Auto) 1.05, Monocytes # (Auto) 1.90, Eosinophils # (Auto) 0.01, Basophils # (Auto) 0.02 Last Resulted 05/24/18 07:00 Assessment and Plan Mr. Sen is a 53yo M with PMH of ITP since 2000, HLD, GERD who presented as direct admit from the cancer center due to acute thrombocytopenia. 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 Refractory ITP, thrombocytopenia - Decadron 40 mg daily - heme/onc following -> Nplate injections during stay -> Considering Rhogam (per heme) - Follow platelets every 24 hours - platelets decreased to 1 today - general surgery following -> will go for splenectomy when plt count >50k or >20k if transfusing platelets perioperatively -> Will also require immunizations after splenectomy Nose and gum bleeding - Sec to ITP. - Pt had sustained posterior nosebleed yesterday. Resolved with infusion of amicar - Given 5gms. GERD - Continue Zantac 150 mg PO BID HLD - Continue low fat diet DVT: contraindicated due to low risk of clotting and very high risk of bleeding from chemical/mechanical anticoagulation Dispo: med/surg, pending improvement in platelet levels Code: FULL Resident Tracking Resident Involvement: Resident Care Provided Care Provided: Adult Hospital Medicine Reviewed: Pt Seen/Exam by Me History upset about being stuck in the hospital no new bruise Constitutional: denies: fever Respiratory: negative: short of breath Cardiovascular: denies chest pain General Appearance: no apparent distress Respiratory: lungs clear, no respiratory distress Cardiovascular: regular rate, rhythm Gastrointestinal: soft Neurologic/Psychiatric: alert, oriented x 3 Assessment/Plan Resident Physician Supervision Note: I independently interviewed and examined the patient and verified the zamorano history and physical, reviewed labs and image studies, discussed the case with the resident Dr. Renae and agree with the findings and care plan.
[2018-06-04] MEDS ORDERED: ESZOPICLONE 1 MG TAB PO PRN (14:00)
[2018-06-04 15:04] VITALS: BP 136/84; PULSE 84; TEMP 36.6; O2SAT 97
--- NOTE | 2018-06-04 17:17 | Hematology/Oncology Prog Note ---
Hematology/Onc Progress Note Date of Service Jun 04, 2018. Diagnoses Refractory ITP Medications Medications Administered Medications (Trade) Dose Ordered Sig/Kristine Route Start Time Stop Time Status Last Admin Dose Admin Immune Globulin 20 gm/Empty Bag 200 ml @ 0 mls/hr 1700,1800,1900,2000,2100 IV 05/22/18 17:00 05/22/18 23:59 VA 05/22/18 23:00 480 MLS/HR Al Hydrox/Mg Hydrox/Simethicone (Maalox Max Susp) 15 ml Q4H PRN PO 05/22/18 17:15 06/21/18 17:14 06/02/18 18:18 15 ML Ondansetron HCl (Zofran Inj) 4 mg Q6H PRN IV 05/22/18 17:15 06/21/18 17:14 05/22/18 18:54 4 MG Ranitidine HCl (zANTac TAB) 150 mg BID PO 05/22/18 21:00 06/21/18 17:59 06/04/18 09:05 150 MG Immune Globulin 20 gm/Empty Bag 200 ml @ 0 mls/hr TODAY@1000,1100,1200,1300,1400 IV 05/23/18 10:00 05/23/18 14:01 VA 05/23/18 16:19 200 MLS/HR Methylprednisolone Sodium Succinate 60 mg/Syringe 0.96 ml @ 1.5 mls/min BID IV 05/23/18 09:00 05/28/18 09:51 VA 05/28/18 08:00 1.5 MLS/MIN Romiplostim 102.5 mcg/Syringe 0.205 ml @ 0 mls/sec TODAY@1130 AR 05/26/18 11:30 05/26/18 13:00 VA 05/26/18 11:29 102.5 MLS/SEC Immune Globulin 20 gm/Empty Bag 200 ml @ 0 mls/hr TODAY@0900,1000,1100,1200,1300 IV 05/27/18 09:00 05/27/18 13:01 VA 05/28/18 05:02 61.2 MLS/HR Dexamethasone (Decadron Tab) 40 mg NOW ONCE PO 05/28/18 10:00 05/28/18 10:03 VA 05/28/18 10:30 40 MG Dexamethasone (Decadron Tab) 40 mg DAILY PO 05/29/18 09:00 06/28/18 08:59 06/04/18 09:05 40 MG Romiplostim 200 mcg/Syringe 0.4 ml @ 0 mls/sec TODAY@1400 SC 06/02/18 14:00 06/02/18 18:00 DC 06/02/18 13:45 200 MLS/SEC Oxymetazoline HCl (Afrin 0.05% Nasal [place]) 1 sprays Q8H PRN NA 06/03/18 12:30 07/03/18 12:29 06/03/18 12:43 1 SPRAYS Aminocaproic Acid 5000 mg/Dextrose 270 ml @ 100 mls/hr NOW ONCE IV 06/03/18 13:33 06/03/18 16:14 DC 06/03/18 13:49 100 MLS/HR Subjective Mr. Sen is unchanged. He is growing frustrated again with his current situation. He continues to have periodic nuisance bleeding but no major bleeds thus far. Review of Systems: Constitutional: No fever, No fatigue ENT: + unusual epistaxis (intermittent, small volume) Respiratory: No cough, No hemoptysis Cardiovascular: No chest pain Abdomen: No pain, No GI bleeding Musculoskeletal: No joint pain, No muscle pain Male : No hematuria Skin: No rash Vital Signs Vital Signs Past 12 Hours Date Time Temp Pulse Resp B/P (MAP) Pulse Ox O2 Delivery O2 Flow Rate FiO2 06/04/18 15:04 36.6 84 18 136/84 (101) 97 Room Air 06/04/18 08:00 Room Air 06/04/18 07:01 36.6 49 18 128/75 (92) 98 Room Air Physical Exam Constitutional: General Apperance: heathly-appearing Level of Distress: NAD Psychiatric: Mental Status: active & alert Orientation: oriented except where noted ENMT: pharynx normal (no purpura) Lungs: Auscuitation: breath sounds normal Cardiovascular: Heart Auscultation: RRR Abdomen: Inspection & Palpation: soft, no tenderness, guarding & rebound Extremities: no edema Laboratory Last 24 Hours Test 06/04/18 05:42 06/04/18 12:25 White Blood Count 24.57 K/uL Red Blood Count 4.66 M/uL Hemoglobin 13.8 g/dL Hematocrit 41.6 % Mean Corpuscular Volume 89.3 fL Mean Corpuscular Hemoglobin 29.6 pg Mean Corpuscular Hemoglobin Concent 33.2 g/dl Platelet Count 1 K/uL Neutrophils (%) (Auto) 85.7 % Lymphocytes (%) (Auto) 4.3 % Monocytes (%) (Auto) 7.7 % Eosinophils (%) (Auto) 0.0 % Basophils (%) (Auto) 0.1 % Neutrophils # (Auto) 21.05 K/uL Lymphocytes # (Auto) 1.05 K/uL Monocytes # (Auto) 1.90 K/uL Eosinophils # (Auto) 0.01 K/uL Basophils # (Auto) 0.02 K/uL RDW Standard Deviation 46.8 fL RDW Coefficient of Variation 14.6 % Immature Granulocyte % (Auto) 2.2 % Immature Granulocyte # (Auto) 0.54 K/uL Platelet Estimate SIGNIFIC DECREASED Red Blood Cell Morphology Unremarkable Stool Occult Blood POSITIVE Assessment & Plan His platelets remain in the low single digits. We have exhausted most of the effective acute therapies and are left with treatments that take time to be effective. One option we haven't considered yet is RhoGAM. It can be used in some refractory patients and has a mechanism similar to IVIG. It only works, however, in patients who are Rh-positive. We should order a type and screen today. Even if he is a candidate, I wouldn't want to do anything until Friday, since the effect is usually short-lived and I don't want it to wear off before he can go to surgery. I would continue with daily labs and transfusions only in the context of severe, life-threatening bleeding.
[2018-06-04] MEDS: KETOCONAZOLE 2% CR 15 GM TUBE EXT SCH (23:48)
[2018-06-04 23:54] VITALS: BP 125/80; PULSE 71; TEMP 36.5; O2SAT 96
--- NOTE | 2018-06-05 07:13 | Family Medicine Progress Note ---
Progress Note Date of Service Jun 05, 2018. Subjective Pt evaluation today including: conversation w/ patient, conversation w/ family , physical exam, lab review, conversation w/ personnel consultant Pain: no pain PO Intake: tolerating well Voiding: no voiding problems Patient with in room today, in better spirits. Had nose bleed early this am but resolved after about 30 min. Constitutional: No fever, No chills ENT: + unusual epistaxis, No dental problems Respiratory: No cough, No hemoptysis Cardiovascular: No chest pain Abdomen: No pain, No nausea, No vomiting, No GI bleeding Musculoskeletal: No joint pain Male : No hematuria Psychiatric: + anhedonism Heme: + abnormal bleeding/bruising Skin: + bleeding All Other Systems: Reviewed and Negative Medications Current Inpatient Medications Medications (Trade) Dose Ordered Sig/Kristine Route Start Time Stop Time Status Last Admin Dose Admin Acetaminophen (Tylenol Tab) 650 mg Q4H PRN PO 05/22/18 17:15 06/21/18 17:14 Al Hydrox/Mg Hydrox/Simethicone (Maalox Max Susp) 15 ml Q4H PRN PO 05/22/18 17:15 06/21/18 17:14 06/02/18 18:18 15 ML Ondansetron HCl (Zofran Inj) 4 mg Q6H PRN IV 05/22/18 17:15 06/21/18 17:14 05/22/18 18:54 4 MG Diphenhydramine HCl (Benadryl Cap) 25 mg Q4HWA PRN PO 05/22/18 18:00 06/21/18 17:59 Ranitidine HCl (zANTac TAB) 150 mg BID PO 05/22/18 21:00 06/21/18 17:59 06/04/18 21:21 150 MG Dexamethasone (Decadron Tab) 40 mg DAILY PO 05/29/18 09:00 06/28/18 08:59 06/04/18 09:05 40 MG Oxymetazoline HCl (Afrin 0.05% Nasal [place]) 1 sprays Q8H PRN NA 06/03/18 12:30 07/03/18 12:29 06/03/18 12:43 1 SPRAYS Eszopiclone (Lunesta Tab) 1 mg HSZ PRN PO 06/04/18 14:00 07/04/18 13:59 Ketoconazole (Nizoral 2% Crm) 1 appln DAILY EXT 06/04/18 21:45 06/14/18 21:44 06/04/18 23:48 1 APPLN Objective Vital Signs Date Time Temp Pulse Resp B/P (MAP) Pulse Ox O2 Delivery O2 Flow Rate FiO2 06/05/18 00:00 Room Air 06/04/18 23:54 36.5 71 18 125/80 (95) 96 Room Air 06/04/18 15:04 36.6 84 18 136/84 (101) 97 Room Air 06/04/18 08:00 Room Air Physical Exam General Appearance: WD/WN, no apparent distress Eyes: EOMI, sclerae normal ENT: hearing grossly normal Neck: no adenopathy, no carotid bruits, trachea midline Respiratory/Chest: lungs clear, normal breath sounds, no respiratory distress, no accessory muscle use Cardiovascular: regular rate, rhythm, no edema, no gallop, no murmur Abdomen: normal bowel sounds, non tender, soft Extremities: normal range of motion, normal inspection, no pedal edema, no calf tenderness Neurologic/Psychiatric: no motor/sensory deficits, alert, normal mood/affect, oriented x 3 Skin: + pertinent finding (bruises of varying stages across body) Laboratory Results Last Resulted 05/24/18 07:00 Assessment and Plan Mr. Sen is a 53yo M with PMH of ITP since 2000, HLD, GERD who presented as direct admit from the cancer center due to acute thrombocytopenia. Recently discharged from [facility] four days [employer] with plt count of 54K, found to have plt 3K on readmission. Refractory ITP, thrombocytopenia - Decadron 40 mg daily - heme/onc following -> Nplate injections during stay (Tuesdays) -> Plan to receive Rhogam (per heme), on Friday - Follow platelets every 24 hours - platelets increased to 2 today - general surgery following -> will go for splenectomy when plt count >50k or >20k if transfusing platelets perioperatively -> Will also require immunizations after splenectomy Nose and gum bleeding - Sec to ITP. - Had another nose bleeding this am but self resolved. - Required amicar for the bleeding early in the week. GERD - Continue Zantac 150 mg PO BID HLD - Continue low fat diet DVT: contraindicated due to low risk of clotting and very high risk of bleeding from chemical/mechanical anticoagulation Dispo: med/surg, pending improvement in platelet levels Code: FULL Resident Tracking Resident Involvement: Resident Care Provided Care Provided: Adult Hospital Medicine Reviewed: Pt Seen/Exam by Me History had nose bleed this am but self resolved. no new bruises Constitutional: denies: fever Respiratory: negative: short of breath Cardiovascular: denies chest pain General Appearance: no apparent distress Respiratory: no respiratory distress Neurologic/Psychiatric: alert, oriented x 3 Skin Characteristics: warm/dry Assessment/Plan Resident Physician Supervision Note: I independently interviewed and examined the patient and verified the zamorano history and physical, reviewed labs and image studies, discussed the case with the resident Dr. Renae and agree with the findings and care plan.
[2018-06-05 07:21] LABS: HEMATOCRIT 42.4 % (42-52); MEAN CELL VOLUME 89.6 fL (80-100); MEAN CORPUSCULAR HEMOGLOBIN 29.6 pg (25-34); RED CELL DISTRIBUTION WIDTH CV 14.7 % (11.5-14.5); RED CELL DISTRIBUTION WIDTH SD 47.8 fL (36.4-46.3); WHITE BLOOD COUNT 23.73 K/uL (4.8-10.8)
[2018-06-05] MEDS: DEXAMETHASONE 4 MG TAB PO SCH (07:38)
[2018-06-05] MEDS: KETOCONAZOLE 2% CR 15 GM TUBE EXT SCH (07:38)
[2018-06-05] MEDS: RANITIDINE HCL 150 MG TAB PO SCH ×2 (07:38→20:40)
[2018-06-05 07:48] LABS: PLATELET COUNT 2 K/uL (130-400)
[2018-06-05 07:49] LABS: BASO % 0.1 %; BASO ABS # 0.03 K/uL (0-0.2); IG# 0.53 K/uL (0.00-0.02); LYMPH % 4.3 %; LYMPH ABS # 1.02 K/uL (1.2-3.4); MONO % 9.4 %; MONO ABS # 2.23 K/uL (0.11-0.59); NEUT ABS # 19.92 K/uL (1.4-6.5)
[2018-06-05 08:16] VITALS: BP 139/75; PULSE 48; TEMP 36.7; O2SAT 97
[2018-06-05] MEDS ORDERED: AMINOCAPROIC ACID IV ONE ×2 (09:00)
[2018-06-05] MEDS ORDERED: DEXTROSE 5% IV ONE ×2 (09:00)
--- NOTE | 2018-06-05 11:12 | Surgery Progress Note ---
Surgery Progress Note Date of Service Jun 05, 2018. Subjective Refractory ITP. plt count 2k this AM, had a nose bleed. Excited about potential of RhoGam treatment on Friday. Objective Vital Signs: Date Time Temp Pulse Resp B/P (MAP) Pulse Ox O2 Delivery O2 Flow Rate FiO2 06/05/18 08:16 36.7 48 16 139/75 (96) 97 Room Air 06/05/18 00:00 Room Air 06/04/18 23:54 36.5 71 18 125/80 (95) 96 Room Air 06/04/18 15:04 36.6 84 18 136/84 (101) 97 Room Air General Appearance: WD/WN, no apparent distress Abdomen: normal bowel sounds, non tender, non distended, soft, no organomegaly , no pulsatile mass Laboratory Results: Results Past 24 Hours Test 06/04/18 12:25 06/05/18 07:00 Range/Units Stool Occult Blood POSITIVE NEGATIVE White Blood Count 23.73 4.8-10.8 K/uL Red Blood Count 4.73 4.7-6.1 M/uL Hemoglobin 14.0 14.0-18.0 g/dL Hematocrit 42.4 42-52 % Mean Corpuscular Volume 89.6 80-100 fL Mean Corpuscular Hemoglobin 29.6 25-34 pg Mean Corpuscular Hemoglobin Concent 33.0 32-36 g/dl Platelet Count 2 130-400 K/uL Neutrophils (%) (Auto) 84.0 % Lymphocytes (%) (Auto) 4.3 % Monocytes (%) (Auto) 9.4 % Eosinophils (%) (Auto) 0.0 % Basophils (%) (Auto) 0.1 % Neutrophils # (Auto) 19.92 1.4-6.5 K/uL Lymphocytes # (Auto) 1.02 1.2-3.4 K/uL Monocytes # (Auto) 2.23 0.11-0.59 K/uL Eosinophils # (Auto) 0.00 0-0.5 K/uL Basophils # (Auto) 0.03 0-0.2 K/uL RDW Standard Deviation 47.8 36.4-46.3 fL RDW Coefficient of Variation 14.7 11.5-14.5 % Immature Granulocyte % (Auto) 2.2 % Immature Granulocyte # (Auto) 0.53 0.00-0.02 K/uL Platelet Estimate SIGNIFIC DECREASED Assessment & Plan ITP, plt count 2k. agree with need for splenectomy when platelet count higher. plan for laparoscopic splenectomy when plt count >50k, or >20k if platelets available for transfusion perioperatively will need immunizations against pneumococcus, meningococcus, and HIB. risks reviewed surgery will follow peripherally, call me when plt count increases significantly or with questions or concerns
[2018-06-05 14:55] VITALS: BP 124/65; PULSE 71; TEMP 36.8; O2SAT 96
[2018-06-05 16:00] VITALS: O2SAT 96
[2018-06-05 23:56] VITALS: BP 131/82; PULSE 58; TEMP 36.6; O2SAT 98
[2018-06-06 06:55] VITALS: BP 122/74; PULSE 57; TEMP 36.8; O2SAT 99
[2018-06-06 07:33] LABS: HEMATOCRIT 43.8 % (42-52); HEMOGLOBIN 14.1 g/dL (14.0-18.0); MEAN CELL VOLUME 89.9 fL (80-100); MEAN CORPUSCULAR HGB CONC 32.2 g/dl (32-36); PLATELET COUNT 2 K/uL (130-400); RED CELL DISTRIBUTION WIDTH SD 48.8 fL (36.4-46.3); WHITE BLOOD COUNT 22.33 K/uL (4.8-10.8)
[2018-06-06 07:35] LABS: BASO % 0.1 %; BASO ABS # 0.03 K/uL (0-0.2); IG# 0.85 K/uL (0.00-0.02); LYMPH % 5.1 %; LYMPH ABS # 1.13 K/uL (1.2-3.4); MONO % 10.7 %; MONO ABS # 2.38 K/uL (0.11-0.59); NEUT % 80.3 %; NEUT ABS # 17.94 K/uL (1.4-6.5)
[2018-06-06] MEDS: DEXAMETHASONE 4 MG TAB PO SCH (07:58)
[2018-06-06] MEDS: RANITIDINE HCL 150 MG TAB PO SCH ×2 (07:59→18:49)
[2018-06-06] MEDS: KETOCONAZOLE 2% CR 15 GM TUBE EXT SCH (08:01)
--- NOTE | 2018-06-06 08:11 | Family Medicine Progress Note ---
Progress Note Date of Service Jun 06, 2018. Subjective Pt evaluation today including: conversation w/ patient Found patient resting comfortably in bed. He says that he has some right hip, knee, and ankle soreness that he thinks is related to the Nplate medication. He denies any difficulty moving his joints or localized swelling. Says his last episode of nosebleed was yesterday morning. He denies any acute concerns in hopes that his platelet count goes up soon. On a social note, patient says he is on track for retiring and would like to conduct a brief shelter ceremony around 3 PM (with visiting colleagues) this coming Friday if a conference room is available. Constitutional: No fever, No chills ENT: No hearing loss, No sore throat Respiratory: No cough, No shortness of breath Cardiovascular: No chest pain, No edema Abdomen: No pain, No nausea, No vomiting, No diarrhea Heme: + abnormal bleeding/bruising Medications Current Inpatient Medications Medications (Trade) Dose Ordered Sig/Kristine Route Start Time Stop Time Status Last Admin Dose Admin Acetaminophen (Tylenol Tab) 650 mg Q4H PRN PO 05/22/18 17:15 06/21/18 17:14 Al Hydrox/Mg Hydrox/Simethicone (Maalox Max Susp) 15 ml Q4H PRN PO 05/22/18 17:15 06/21/18 17:14 06/02/18 18:18 15 ML Ondansetron HCl (Zofran Inj) 4 mg Q6H PRN IV 05/22/18 17:15 06/21/18 17:14 05/22/18 18:54 4 MG Diphenhydramine HCl (Benadryl Cap) 25 mg Q4HWA PRN PO 05/22/18 18:00 06/21/18 17:59 Ranitidine HCl (zANTac TAB) 150 mg BID PO 05/22/18 21:00 06/21/18 17:59 06/06/18 07:59 150 MG Dexamethasone (Decadron Tab) 40 mg DAILY PO 05/29/18 09:00 06/28/18 08:59 06/06/18 07:58 40 MG Oxymetazoline HCl (Afrin 0.05% Nasal [place]) 1 sprays Q8H PRN NA 06/03/18 12:30 07/03/18 12:29 8/1/18 12:43 1 SPRAYS Eszopiclone (Lunesta Tab) 1 mg HSZ PRN PO 06/04/18 14:00 07/04/18 13:59 Ketoconazole (Nizoral 2% Crm) 1 appln DAILY EXT 06/04/18 21:45 06/14/18 21:44 06/06/18 08:01 1 APPLN Objective Vital Signs Date Time Temp Pulse Resp B/P (MAP) Pulse Ox O2 Delivery O2 Flow Rate FiO2 06/06/18 06:55 36.8 57 18 122/74 (90) 99 Room Air 06/05/18 23:59 Room Air 06/05/18 23:56 36.6 58 18 131/82 (98) 98 Room Air 06/05/18 16:00 96 Room Air 06/05/18 14:55 36.8 71 16 124/65 (84) 96 06/05/18 08:16 36.7 48 16 139/75 (96) 97 Room Air Physical Exam Notes: General Appearance: Awake, alert & oriented, comfortable in general, NAD. CV: +S1S2 RRR, no murmur. Pulm: Clear to auscultation throughout. Abdomen: +BS, soft, non-tender, non-distended. Extremities: No pedal edema or calf tenderness. Moving all extremities naturally and easily. Has multiple areas of contusion in various healing stages , notably right upper arm. Neuro: No gross neuro deficits. Laboratory Results 06/06/18 06:43 Red Blood Count 4.87, Mean Corpuscular Volume 89.9, Mean Corpuscular Hemoglobin 29.0, Mean Corpuscular Hemoglobin Concent 32.2, Neutrophils (%) (Auto) 80.3, Lymphocytes (%) (Auto) 5.1, Monocytes (%) (Auto) 10.7, Eosinophils (%) (Auto) 0.0, Basophils (%) (Auto) 0.1, Neutrophils # (Auto) 17.94, Lymphocytes # (Auto) 1.13, Monocytes # (Auto) 2.38, Eosinophils # (Auto) 0.00, Basophils # (Auto) 0.03 Test 06/06/18 06:43 White Blood Count 22.33 K/uL (4.8-10.8) Red Blood Count 4.87 M/uL (4.7-6.1) Hemoglobin 14.1 g/dL (14.0-18.0) Hematocrit 43.8 % (42-52) Mean Corpuscular Volume 89.9 fL (80-100) Mean Corpuscular Hemoglobin 29.0 pg (25-34) Mean Corpuscular Hemoglobin Concent 32.2 g/dl (32-36) Platelet Count 2 K/uL (130-400) Neutrophils (%) (Auto) 80.3 % Lymphocytes (%) (Auto) 5.1 % Monocytes (%) (Auto) 10.7 % Eosinophils (%) (Auto) 0.0 % Basophils (%) (Auto) 0.1 % Neutrophils # (Auto) 17.94 K/uL (1.4-6.5) Lymphocytes # (Auto) 1.13 K/uL (1.2-3.4) Monocytes # (Auto) 2.38 K/uL (0.11-0.59) Eosinophils # (Auto) 0.00 K/uL (0-0.5) Basophils # (Auto) 0.03 K/uL (0-0.2) RDW Standard Deviation 48.8 fL (36.4-46.3) RDW Coefficient of Variation 15.0 % (11.5-14.5) Immature Granulocyte % (Auto) 3.8 % Immature Granulocyte # (Auto) 0.85 K/uL (0.00-0.02) Platelet Estimate SIGNIFIC DECREASED Assessment and Plan 53-year-old male admitted directly from the cancer center on 22 May 2018 for acute thrombocytopenia with history of ITP since 2000. PMH: ITP since 2000, hyperlipidemia, GERD. Refractory ITP and thrombocytopenia: Last such episode was in 2000. Hematology following, see related notes. Admit platelet count of 2, presently also 2. - Overall plan is splenectomy when eligible. Related goal for platelet count over 50,000 (or over 20,000 if transfusing platelets perioperative). General surgery following, see related notes. - Presently on Decadron 40 mg daily as well as Nplate injections weekly on Tuesdays. Plan for RhoGam on Friday (06Aug). Epistaxis: Secondary to ITP. Has so far resolved with continued pressure and positioning. Last such episode was yesterday. - Consider Afrin and amicar use (5 gm IV) if bleeding is greater than 45 minutes or excessive. - GERD: Continue Zantac 150 mg PO BID. - HLD: Continue low fat diet. Code status: Full code Diet: Regular diet DVT prophy: Contraindicated due to thrombocytopenia. PT/OT: Deferred Disbo: Admit to [facility]. Resident Tracking Resident Involvement: Resident Care Provided Care Provided: Adult Hospital Medicine (inpatient) Reviewed: Pt Seen/Exam by Me History no further bleeding Constitutional: denies: fever Respiratory: negative: short of breath Cardiovascular: denies chest pain Neurological/Psych: positive: other (slept well at night) General Appearance: no apparent distress Respiratory: lungs clear, no respiratory distress Cardiovascular: regular rate, rhythm Gastrointestinal: soft Neurologic/Psychiatric: alert, oriented x 3 Skin Characteristics: warm/dry Assessment/Plan Resident Physician Supervision Note: I independently interviewed and examined the patient and verified the zamorano history and physical, reviewed labs and image studies, discussed the case with the resident Dr. Lauren and agree with the findings and care plan.
--- NOTE | 2018-06-06 12:12 | Hematology/Oncology Prog Note ---
Hematology/Onc Progress Note Date of Service Jun 06, 2018. Diagnoses Refractory ITP Medications Medications Administered Medications (Trade) Dose Ordered Sig/Kristine Route Start Time Stop Time Status Last Admin Dose Admin Immune Globulin 20 gm/Empty Bag 200 ml @ 0 mls/hr 1700,1800,1900,2000,2100 IV 05/22/18 17:00 05/22/18 23:59 NV 05/22/18 23:00 480 MLS/HR Al Hydrox/Mg Hydrox/Simethicone (Maalox Max Susp) 15 ml Q4H PRN PO 05/22/18 17:15 06/21/18 17:14 06/02/18 18:18 15 ML Ondansetron HCl (Zofran Inj) 4 mg Q6H PRN IV 05/22/18 17:15 06/21/18 17:14 05/22/18 18:54 4 MG Ranitidine HCl (zANTac TAB) 150 mg BID PO 05/22/18 21:00 06/21/18 17:59 06/06/18 07:59 150 MG Immune Globulin 20 gm/Empty Bag 200 ml @ 0 mls/hr TODAY@1000,1100,1200,1300,1400 IV 05/23/18 10:00 05/23/18 14:01 NV 05/23/18 16:19 200 MLS/HR Methylprednisolone Sodium Succinate 60 mg/Syringe 0.96 ml @ 1.5 mls/min BID IV 05/23/18 09:00 05/28/18 09:51 NV 05/28/18 08:00 1.5 MLS/MIN Romiplostim 102.5 mcg/Syringe 0.205 ml @ 0 mls/sec TODAY@1130 [place] 05/26/18 11:30 05/26/18 13:00 NV 05/26/18 11:29 102.5 MLS/SEC Immune Globulin 20 gm/Empty Bag 200 ml @ 0 mls/hr TODAY@0900,1000,1100,1200,1300 IV 05/27/18 09:00 05/27/18 13:01 NV 05/28/18 05:02 61.2 MLS/HR Dexamethasone (Decadron Tab) 40 mg NOW ONCE PO 05/28/18 10:00 05/28/18 10:03 NV 05/28/18 10:30 40 MG Dexamethasone (Decadron Tab) 40 mg DAILY PO 05/29/18 09:00 06/28/18 08:59 06/06/18 07:58 40 MG Romiplostim 200 mcg/Syringe 0.4 ml @ 0 mls/sec TODAY@1400 [place] 06/02/18 14:00 06/02/18 18:00 DC 06/02/18 13:45 200 MLS/SEC Oxymetazoline HCl (Afrin 0.05% Nasal [place]) 1 sprays Q8H PRN NA 06/03/18 12:30 07/03/18 12:29 06/03/18 12:43 1 SPRAYS Aminocaproic Acid 5000 mg/Dextrose 270 ml @ 100 mls/hr NOW ONCE IV 06/03/18 13:33 06/03/18 16:14 DC 06/03/18 13:49 100 MLS/HR Ketoconazole (Nizoral 2% Crm) 1 appln DAILY EXT 06/04/18 21:45 06/14/18 21:44 06/06/18 08:01 1 APPLN Subjective Mr. Sen is unchanged. He had no specific bleeding issues overnight for the first time in a while. He has no pain and is reasonably comfortable. He also sorted out his custodial issue and so no longer needs to be out of the hospital by . Review of Systems: Constitutional: No fever, No fatigue Eyes: No worsening of vision ENT: No unusual epistaxis Respiratory: No cough, No hemoptysis Cardiovascular: No chest pain Abdomen: No pain, No GI bleeding Musculoskeletal: No joint pain, No muscle pain Male : No hematuria Heme: No abnormal bleeding/bruising Skin: No rash Vital Signs Vital Signs Past 12 Hours Date Time Temp Pulse Resp B/P (MAP) Pulse Ox O2 Delivery O2 Flow Rate FiO2 06/06/18 08:00 Room Air 06/06/18 06:55 36.8 57 18 122/74 (90) 99 Room Air Physical Exam Constitutional: General Apperance: heathly-appearing Level of Distress: NAD Psychiatric: Mental Status: active & alert Orientation: oriented except where noted ENMT: pharynx normal (no purpura) Lungs: Auscuitation: breath sounds normal Cardiovascular: Heart Auscultation: RRR Abdomen: Inspection & Palpation: soft, no tenderness, guarding & rebound Extremities: no edema Laboratory Last 24 Hours Test 06/06/18 06:43 White Blood Count 22.33 K/uL Red Blood Count 4.87 M/uL Hemoglobin 14.1 g/dL Hematocrit 43.8 % Mean Corpuscular Volume 89.9 fL Mean Corpuscular Hemoglobin 29.0 pg Mean Corpuscular Hemoglobin Concent 32.2 g/dl Platelet Count 2 K/uL Neutrophils (%) (Auto) 80.3 % Lymphocytes (%) (Auto) 5.1 % Monocytes (%) (Auto) 10.7 % Eosinophils (%) (Auto) 0.0 % Basophils (%) (Auto) 0.1 % Neutrophils # (Auto) 17.94 K/uL Lymphocytes # (Auto) 1.13 K/uL Monocytes # (Auto) 2.38 K/uL Eosinophils # (Auto) 0.00 K/uL Basophils # (Auto) 0.03 K/uL RDW Standard Deviation 48.8 fL RDW Coefficient of Variation 15.0 % Immature Granulocyte % (Auto) 3.8 % Immature Granulocyte # (Auto) 0.85 K/uL Platelet Estimate SIGNIFIC DECREASED Assessment & Plan His platelets are stable at 2K today. The plan remains as we discussed on Friday. Unless his counts have started to rise, we will administer RhoGAM on Friday with a plan to take him to surgery if he responds. We should coordinate with the surgeons Friday or even this weekend to make sure they are aware of the plan. For now, we should continue with daily labs and transfusions only in the context of severe, life-threatening bleeding.
[2018-06-06 15:04] VITALS: BP 121/74; PULSE 70; TEMP 36.8; O2SAT 96
[2018-06-06 23:37] VITALS: BP 137/77; PULSE 58; TEMP 36.3; O2SAT 96
[2018-06-07 07:11] VITALS: BP 108/62; PULSE 57; TEMP 36.7; O2SAT 98
[2018-06-07 07:24] LABS: HEMATOCRIT 41.2 % (42-52); HEMOGLOBIN 13.5 g/dL (14.0-18.0); MEAN CELL VOLUME 90.7 fL (80-100); MEAN CORPUSCULAR HEMOGLOBIN 29.7 pg (25-34); MEAN CORPUSCULAR HGB CONC 32.8 g/dl (32-36); PLATELET COUNT 3 K/uL (130-400); RED CELL DISTRIBUTION WIDTH CV 15.1 % (11.5-14.5); RED CELL DISTRIBUTION WIDTH SD 50.2 fL (36.4-46.3); WHITE BLOOD COUNT 22.09 K/uL (4.8-10.8)
[2018-06-07 07:59] LABS: BASO % 0.1 %; BASO ABS # 0.03 K/uL (0-0.2); EOS % 0.1 %; EOS ABS # 0.02 K/uL (0-0.5); IG# 0.65 K/uL (0.00-0.02); LYMPH % 5.7 %; LYMPH ABS # 1.26 K/uL (1.2-3.4); MONO % 9.9 %; MONO ABS # 2.18 K/uL (0.11-0.59); NEUT % 81.3 %; NEUT ABS # 17.95 K/uL (1.4-6.5)
[2018-06-07] MEDS: RANITIDINE HCL 150 MG TAB PO SCH ×2 (08:19→20:09)
[2018-06-07] MEDS: DEXAMETHASONE 4 MG TAB PO SCH (08:19)
[2018-06-07] MEDS: KETOCONAZOLE 2% CR 15 GM TUBE EXT SCH (08:20)
--- NOTE | 2018-06-07 09:13 | Family Medicine Progress Note ---
Progress Note Date of Service Jun 07, 2018. Subjective Pt evaluation today including: conversation w/ patient Found patient resting very comfortably in bed with his at bedside. He says overall he feels quite well, denying any bleeding yesterday or acute concerns. He says he is looking forward to his snf ceremony tomorrow and hopes his platelet count continues to rise. On a social note, patient says he is on track for retiring and would like to conduct a brief snf ceremony around 3 PM (with visiting colleagues) tomorrow. From nursing, sounds like this is possible in a floor conference room. Constitutional: No fever, No chills Respiratory: No cough, No shortness of breath Cardiovascular: No chest pain, No edema Abdomen: No pain, No nausea, No vomiting, No diarrhea Heme: + see HPI, + abnormal bleeding/bruising Medications Current Inpatient Medications Medications (Trade) Dose Ordered Sig/Kristine Route Start Time Stop Time Status Last Admin Dose Admin Acetaminophen (Tylenol Tab) 650 mg Q4H PRN PO 05/22/18 17:15 06/21/18 17:14 Al Hydrox/Mg Hydrox/Simethicone (Maalox Max Susp) 15 ml Q4H PRN PO 05/22/18 17:15 06/21/18 17:14 06/02/18 18:18 15 ML Ondansetron HCl (Zofran Inj) 4 mg Q6H PRN IV 05/22/18 17:15 06/21/18 17:14 05/22/18 18:54 4 MG Diphenhydramine HCl (Benadryl Cap) 25 mg Q4HWA PRN PO 05/22/18 18:00 06/21/18 17:59 Ranitidine HCl (zANTac TAB) 150 mg BID PO 05/22/18 21:00 06/21/18 17:59 06/07/18 08:19 150 MG Dexamethasone (Decadron Tab) 40 mg DAILY PO 05/29/18 09:00 06/28/18 08:59 06/07/18 08:19 40 MG Oxymetazoline HCl (Afrin 0.05% Nasal [place]) 1 sprays Q8H PRN NA 06/03/18 12:30 07/03/18 12:29 06/03/18 12:43 1 SPRAYS Eszopiclone (Lunesta Tab) 1 mg HSZ PRN PO 06/04/18 14:00 07/04/18 13:59 Ketoconazole (Nizoral 2% Crm) 1 appln DAILY EXT 06/04/18 21:45 06/14/18 21:44 06/07/18 08:20 1 APPLN Objective Vital Signs Date Time Temp Pulse Resp B/P (MAP) Pulse Ox O2 Delivery O2 Flow Rate FiO2 06/07/18 07:11 36.7 57 18 108/62 (77) 98 Room Air 06/06/18 23:59 Room Air 06/06/18 23:37 36.3 58 18 137/77 (97) 96 Room Air 06/06/18 16:00 Room Air 06/06/18 15:04 36.8 70 18 121/74 (90) 96 Room Air Physical Exam Notes: General Appearance: Awake, alert & oriented, comfortable in general, NAD. CV: +S1S2 RRR, no murmur. Pulm: Clear to auscultation throughout. Abdomen: +BS, soft, non-tender, non-distended. Extremities: No pedal edema or calf tenderness. Moving all extremities naturally and easily. Has multiple areas of contusion in various healing stages , notably right upper arm. Neuro: No gross neuro deficits. Laboratory Results 06/07/18 06:31 Red Blood Count 4.54, Mean Corpuscular Volume 90.7, Mean Corpuscular Hemoglobin 29.7, Mean Corpuscular Hemoglobin Concent 32.8, Neutrophils (%) (Auto) 81.3, Lymphocytes (%) (Auto) 5.7, Monocytes (%) (Auto) 9.9, Eosinophils (%) (Auto) 0.1 , Basophils (%) (Auto) 0.1, Neutrophils # (Auto) 17.95, Lymphocytes # (Auto) 1.26, Monocytes # (Auto) 2.18, Eosinophils # (Auto) 0.02, Basophils # (Auto) 0.03 Test 06/07/18 06:31 White Blood Count 22.09 K/uL (4.8-10.8) Red Blood Count 4.54 M/uL (4.7-6.1) Hemoglobin 13.5 g/dL (14.0-18.0) Hematocrit 41.2 % (42-52) Mean Corpuscular Volume 90.7 fL (80-100) Mean Corpuscular Hemoglobin 29.7 pg (25-34) Mean Corpuscular Hemoglobin Concent 32.8 g/dl (32-36) Platelet Count 3 K/uL (130-400) Neutrophils (%) (Auto) 81.3 % Lymphocytes (%) (Auto) 5.7 % Monocytes (%) (Auto) 9.9 % Eosinophils (%) (Auto) 0.1 % Basophils (%) (Auto) 0.1 % Neutrophils # (Auto) 17.95 K/uL (1.4-6.5) Lymphocytes # (Auto) 1.26 K/uL (1.2-3.4) Monocytes # (Auto) 2.18 K/uL (0.11-0.59) Eosinophils # (Auto) 0.02 K/uL (0-0.5) Basophils # (Auto) 0.03 K/uL (0-0.2) RDW Standard Deviation 50.2 fL (36.4-46.3) RDW Coefficient of Variation 15.1 % (11.5-14.5) Immature Granulocyte % (Auto) 2.9 % Immature Granulocyte # (Auto) 0.65 K/uL (0.00-0.02) Platelet Estimate SIGNIFIC DECREASED Assessment and Plan 53-year-old male admitted directly from the cancer center on 22 May 2018 for acute thrombocytopenia with history of ITP since 2000. PMH: ITP since 2000, hyperlipidemia, GERD. Refractory ITP and thrombocytopenia: Last such episode was in 2000. Hematology following, see related notes. Admit platelet count of 2, presently up to 3. - Overall plan is splenectomy when eligible. Related goal for platelet count over 50,000 (or over 20,000 if transfusing platelets perioperative). General surgery following, see related notes. - Presently on Decadron 40 mg daily as well as Nplate injections weekly on Tuesdays. Considering RhoGam tomorrow if platelets do not continue to rise. Epistaxis: Secondary to ITP. Has so far resolved with continued pressure and positioning. Last such episode was 03Aug. - Consider Afrin and amicar use (5 gm IV) if bleeding is greater than 45 minutes or excessive. - GERD: Continue Zantac 150 mg PO BID. - HLD: Continue low fat diet. Code status: Full code Diet: Regular diet DVT prophy: Contraindicated due to thrombocytopenia. PT/OT: Deferred Disbo: Admit to [facility]. Resident Tracking Resident Involvement: Resident Care Provided Care Provided: Adult Hospital Medicine (inpatient) Reviewed: Pt Seen/Exam by Me History no new bruises. no bleeding felt tired while walking around Constitutional: denies: fever Respiratory: negative: short of breath Cardiovascular: denies chest pain General Appearance: no apparent distress Respiratory: no respiratory distress Neurologic/Psychiatric: alert, oriented x 3 Skin Characteristics: warm/dry Assessment/Plan Resident Physician Supervision Note: I independently interviewed and examined the patient and verified the zamorano history and physical, reviewed labs and image studies, discussed the case with the resident Dr. Lauren and agree with the findings and care plan.
[2018-06-07 15:41] VITALS: BP 124/75; PULSE 66; TEMP 36.8; O2SAT 96
[2018-06-08 00:01] VITALS: BP 126/61; PULSE 63; TEMP 36.6; O2SAT 98
[2018-06-08 07:04] VITALS: BP 134/73; PULSE 63; TEMP 36.8; O2SAT 97
[2018-06-08 07:05] LABS: HEMATOCRIT 40.6 % (42-52); HEMOGLOBIN 13.4 g/dL (14.0-18.0); MEAN CORPUSCULAR HEMOGLOBIN 29.7 pg (25-34); RED CELL DISTRIBUTION WIDTH CV 14.9 % (11.5-14.5); RED CELL DISTRIBUTION WIDTH SD 48.6 fL (36.4-46.3); WHITE BLOOD COUNT 20.02 K/uL (4.8-10.8)
[2018-06-08 07:35] LABS: BASO % 0.1 %; BASO ABS # 0.02 K/uL (0-0.2); IG# 0.71 K/uL (0.00-0.02); LYMPH % 4.8 %; LYMPH ABS # 0.96 K/uL (1.2-3.4); MONO % 11.1 %; MONO ABS # 2.22 K/uL (0.11-0.59); NEUT % 80.5 %; NEUT ABS # 16.11 K/uL (1.4-6.5); PLATELET COUNT 5 K/uL (130-400)
[2018-06-08] MEDS: RANITIDINE HCL 150 MG TAB PO SCH ×2 (08:42→19:58)
[2018-06-08] MEDS: DEXAMETHASONE 4 MG TAB PO SCH (08:42)
[2018-06-08] MEDS: KETOCONAZOLE 2% CR 15 GM TUBE EXT SCH (08:43)
[2018-06-08] MEDS ORDERED: NURSING VERBAL MED ORDER ONE (12:45)
--- NOTE | 2018-06-08 12:48 | Family Medicine Progress Note ---
Progress Note Date of Service Jun 08, 2018. Subjective Pt evaluation today including: conversation w/ patient, conversation w/ family , physical exam, chart review, lab review Pain: no pain PO Intake: Tolerating well Voiding: no voiding problems Patient in good spirits today; has no complaints. Is excited to officially retire this afternoon. He is eager to have rhogam today and Nplate tomorrow. Constitutional: No fever, No chills ENT: No unusual epistaxis, No dental problems Respiratory: No hemoptysis Cardiovascular: No chest pain, No edema Abdomen: No pain, No nausea, No vomiting, No GI bleeding Musculoskeletal: No joint pain Male : No hematuria Skin: No bleeding All Other Systems: Reviewed and Negative Medications Current Inpatient Medications Medications (Trade) Dose Ordered Sig/Kristine Route Start Time Stop Time Status Last Admin Dose Admin Acetaminophen (Tylenol Tab) 650 mg Q4H PRN PO 05/22/18 17:15 06/21/18 17:14 Al Hydrox/Mg Hydrox/Simethicone (Maalox Max Susp) 15 ml Q4H PRN PO 05/22/18 17:15 06/21/18 17:14 06/02/18 18:18 15 ML Ondansetron HCl (Zofran Inj) 4 mg Q6H PRN IV 05/22/18 17:15 06/21/18 17:14 05/22/18 18:54 4 MG Diphenhydramine HCl (Benadryl Cap) 25 mg Q4HWA PRN PO 05/22/18 18:00 06/21/18 17:59 Ranitidine HCl (zANTac TAB) 150 mg BID PO 05/22/18 21:00 06/21/18 17:59 06/08/18 08:42 150 MG Dexamethasone (Decadron Tab) 40 mg DAILY PO 05/29/18 09:00 06/28/18 08:59 06/08/18 08:42 40 MG Oxymetazoline HCl (Afrin 0.05% Nasal [place]) 1 sprays Q8H PRN NA 06/03/18 12:30 07/03/18 12:29 06/03/18 12:43 1 SPRAYS Eszopiclone (Lunesta Tab) 1 mg HSZ PRN PO 06/04/18 14:00 07/04/18 13:59 Ketoconazole (Nizoral 2% Crm) 1 appln DAILY EXT 06/04/18 21:45 06/14/18 21:44 06/08/18 08:43 1 APPLN Miscellaneous Information (Nursing Verbal Med Order) 1 ea ONE ONCE N/A 06/08/18 12:45 06/08/18 12:46 UNV Objective Vital Signs Date Time Temp Pulse Resp B/P (MAP) Pulse Ox O2 Delivery O2 Flow Rate FiO2 06/08/18 08:00 Room Air 06/08/18 07:04 36.8 63 18 134/73 (93) 97 Room Air 06/08/18 00:01 36.6 63 20 126/61 (82) 98 Room Air 06/08/18 00:00 Nasal Cannula 06/07/18 16:00 Room Air 06/07/18 15:41 36.8 66 20 124/75 (91) 96 Room Air Physical Exam General Appearance: WD/WN, no apparent distress Eyes: PERRL, EOMI ENT: hearing grossly normal Neck: no carotid bruits, trachea midline Respiratory/Chest: lungs clear, normal breath sounds, no respiratory distress, no accessory muscle use Cardiovascular: regular rate, rhythm, no edema, no murmur Abdomen: non tender, soft Extremities: normal inspection, no pedal edema, no calf tenderness Neurologic/Psychiatric: no motor/sensory deficits, alert, normal mood/affect, oriented x 3 Skin: + pertinent finding (bruises of varying stages of healing across body) Laboratory Results Last Resulted 06/08/18 06:26 Red Blood Count 4.51, Mean Corpuscular Volume 90.0, Mean Corpuscular Hemoglobin 29.7, Mean Corpuscular Hemoglobin Concent 33.0, Neutrophils (%) (Auto) 80.5, Lymphocytes (%) (Auto) 4.8, Monocytes (%) (Auto) 11.1, Eosinophils (%) (Auto) 0.0, Basophils (%) (Auto) 0.1, Neutrophils # (Auto) 16.11, Lymphocytes # (Auto) 0.96, Monocytes # (Auto) 2.22, Eosinophils # (Auto) 0.00, Basophils # (Auto) 0.02 Last Resulted 05/24/18 07:00 Assessment and Plan Mr. Sen is a 53yo M with PMH of ITP since 2000, HLD, GERD who presented as direct admit from the cancer center due to acute thrombocytopenia. 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 Refractory ITP, thrombocytopenia - Decadron 40 mg daily - heme/onc following -> Nplate injections during stay (Tuesdays) -> Plan to receive Rhogam (per heme) today - Follow platelets every 24 hours - platelets increased to 5 today - general surgery following -> will go for splenectomy when plt count >50k or >20k if transfusing platelets perioperatively -> Will also require immunizations after splenectomy Nose and gum bleeding - Sec to ITP. - No nose bleeding today - Required amicar (5mg IV) for the bleeding early last week. GERD - Continue Zantac 150 mg PO BID HLD - Continue low fat diet DVT: contraindicated due to low risk of clotting and very high risk of bleeding from chemical/mechanical anticoagulation Dispo: med/surg, pending improvement in platelet levels Code: FULL Resident Physician Supervision Note: I interviewed and examined the patient. Discussed with Dr. Renae and agree with findings and plan as documented in the note. Any exceptions or clarifications are listed here: None Documented By: Juan Askew feeling ok no further nosebleeds today retiring this afternoon vitals noted nad breathing unlabored no pallor or icterus, ongoing bruising but no overtly new sites even since i last saw him last week refractory ITP -ongoing inpt due to risk of bleed requiring urgent intervention, as well as prior lability of platelets making it possible he could have counts high enough for splenectomy then miss a window of opportunity. -ongoing med management as per heme/onc -continue to follow closely otherwise as above Resident Tracking Resident Involvement: Resident Care Provided Care Provided: Adult Hospital Medicine
--- NOTE | 2018-06-08 12:54 | HEME/ONC PROGRESS NOTE ---
DATE: 06/08/2018 DIAGNOSIS: Refractory ITP. SUBJECTIVE: Yayo is a pleasant 53-year-old gentleman of Dr. Gupta, here on hospital day 16 with refractory ITP. Yayo has received multiple courses of IVIG, corticosteroids and thrombopoietin agents. Platelet count actually varsha to 5000 today. Cautiously optimistic, he is on the upswing. No cutaneous signs of hemorrhage. Nursing reports no overnight difficulties. PHYSICAL EXAMINATION: GENERAL: Pleasant 53-year-old gentleman in no acute distress. VITAL SIGNS: Temperature 36.8, pulse 63, respiratory rate 18, blood pressure 134/73. SKIN: Without rash or lesion. HEENT: Oral mucosa without erythema or ulceration. NECK: Supple. HEART: Regular rate and rhythm. LUNGS: Clear to auscultation. ABDOMEN: Soft, nontender, nondistended. EXTREMITIES: No clubbing, cyanosis or edema. NEUROLOGIC: Grossly intact. LABORATORY DATA: WBC count 20,000; hemoglobin 13.4; platelet count 5000. Sodium 136, potassium 4.2, chloride 107, carbon dioxide 23, BUN 30, creatinine 1.2. IMPRESSION: Refractory ITP. PLAN: In summary, Yayo is a pleasant 53-year-old gentleman, now on hospital day 16 with refractory ITP. Yayo has received multiple courses of IVIG, corticosteroids and thrombopoietin agonists. His platelet count today is 5000 which is somewhat encouraging. We will proceed with anti-D 75 mcg/kg x1 dose today. Continue to monitor daily counts and hopefully his platelets will continue upward. Long-term plan is to proceed with a laparoscopic splenectomy once his platelet count remains sustained over 20,000. We will continue to follow Yayo during his hospital stay.
[2018-06-08 23:02] VITALS: BP 125/72; PULSE 56; TEMP 36.5; O2SAT 95
[2018-06-09] VITALS (7 sets, daily range): BP systolic 122–187; BP diastolic 70–99; PULSE 49–70; TEMP 36.4–36.6; O2SAT 94–98
[2018-06-09 06:54] LABS: HEMATOCRIT 39.9 % (42-52); HEMOGLOBIN 13.4 g/dL (14.0-18.0); MEAN CELL VOLUME 90.1 fL (80-100); MEAN CORPUSCULAR HEMOGLOBIN 30.2 pg (25-34); MEAN CORPUSCULAR HGB CONC 33.6 g/dl (32-36); PLATELET COUNT 3 K/uL (130-400); RED CELL DISTRIBUTION WIDTH CV 15.1 % (11.5-14.5); RED CELL DISTRIBUTION WIDTH SD 49.2 fL (36.4-46.3); WHITE BLOOD COUNT 16.89 K/uL (4.8-10.8)
[2018-06-09 06:56] LABS: BASO % 0.1 %; BASO ABS # 0.02 K/uL (0-0.2); EOS % 0.1 %; EOS ABS # 0.01 K/uL (0-0.5); IG# 0.37 K/uL (0.00-0.02); LYMPH ABS # 1.02 K/uL (1.2-3.4); MONO % 9.8 %; MONO ABS # 1.65 K/uL (0.11-0.59); NEUT % 81.8 %; NEUT ABS # 13.82 K/uL (1.4-6.5)
[2018-06-09] MEDS: RANITIDINE HCL 150 MG TAB PO SCH ×2 (08:23→21:00)
[2018-06-09] MEDS: DEXAMETHASONE 4 MG TAB PO SCH (08:23)
[2018-06-09] MEDS: KETOCONAZOLE 2% CR 15 GM TUBE EXT SCH (08:23)
--- NOTE | 2018-06-09 09:30 | Family Medicine Progress Note ---
Progress Note Date of Service Jun 09, 2018. Subjective Pt evaluation today including: conversation w/ patient, physical exam, chart review, lab review, review of inpatient medication list Pain: No pain PO Intake: Tolerating well Voiding: no voiding problems Patient is excited to receive rhogam today, is hoping this will do the trick for him and his platelets so he can have his spleen taken out this week. Constitutional: No fever, No chills ENT: No dental problems Respiratory: No cough, No hemoptysis Cardiovascular: No chest pain Abdomen: No pain, No nausea, No vomiting, No GI bleeding Male : + problem reported (resolving jock itch), No hematuria Heme: + abnormal bleeding/bruising Skin: + new/changing skin lesions All Other Systems: Reviewed and Negative Medications Current Inpatient Medications Medications (Trade) Dose Ordered Sig/Kristine Route Start Time Stop Time Status Last Admin Dose Admin Acetaminophen (Tylenol Tab) 650 mg Q4H PRN PO 05/22/18 17:15 06/21/18 17:14 Al Hydrox/Mg Hydrox/Simethicone (Maalox Max Susp) 15 ml Q4H PRN PO 05/22/18 17:15 06/21/18 17:14 06/02/18 18:18 15 ML Ondansetron HCl (Zofran Inj) 4 mg Q6H PRN IV 05/22/18 17:15 06/21/18 17:14 05/22/18 18:54 4 MG Diphenhydramine HCl (Benadryl Cap) 25 mg Q4HWA PRN PO 05/22/18 18:00 06/21/18 17:59 Ranitidine HCl (zANTac TAB) 150 mg BID PO 05/22/18 21:00 06/21/18 17:59 06/09/18 08:23 150 MG Dexamethasone (Decadron Tab) 40 mg DAILY PO 05/29/18 09:00 06/28/18 08:59 06/09/18 08:23 40 MG Oxymetazoline HCl (Afrin 0.05% Nasal [place]) 1 sprays Q8H PRN NA 06/03/18 12:30 07/03/18 12:29 06/03/18 12:43 1 SPRAYS Eszopiclone (Lunesta Tab) 1 mg HSZ PRN PO 06/04/18 14:00 07/04/18 13:59 Ketoconazole (Nizoral 2% Crm) 1 appln DAILY EXT 06/04/18 21:45 06/14/18 21:44 06/09/18 08:23 1 APPLN Miscellaneous Information (Pending Order) 1 ea DAILY@10 N/A 06/09/18 10:00 07/09/18 09:59 Objective Vital Signs Date Time Temp Pulse Resp B/P (MAP) Pulse Ox O2 Delivery O2 Flow Rate FiO2 06/09/18 07:12 36.6 64 17 123/80 (94) 94 06/09/18 00:30 Room Air 06/08/18 23:02 36.5 56 18 125/72 (89) 95 Room Air 06/08/18 16:00 Room Air Physical Exam General Appearance: WD/WN, no apparent distress Eyes: EOMI, sclerae normal ENT: hearing grossly normal Neck: no carotid bruits, trachea midline Respiratory/Chest: lungs clear, normal breath sounds, no respiratory distress, no accessory muscle use Cardiovascular: regular rate, rhythm, no edema, no murmur Abdomen: normal bowel sounds, non tender, soft Extremities: normal inspection, no pedal edema, no calf tenderness Neurologic/Psychiatric: alert, normal mood/affect, oriented x 3 Skin: normal color, + pertinent finding (numerous bruises of varying stages of healing across body) Laboratory Results Last Resulted 06/09/18 06:08 Red Blood Count 4.43, Mean Corpuscular Volume 90.1, Mean Corpuscular Hemoglobin 30.2, Mean Corpuscular Hemoglobin Concent 33.6, Neutrophils (%) (Auto) 81.8, Lymphocytes (%) (Auto) 6.0, Monocytes (%) (Auto) 9.8, Eosinophils (%) (Auto) 0.1 , Basophils (%) (Auto) 0.1, Neutrophils # (Auto) 13.82, Lymphocytes # (Auto) 1.02, Monocytes # (Auto) 1.65, Eosinophils # (Auto) 0.01, Basophils # (Auto) 0.02 Last Resulted 05/24/18 07:00 Assessment and Plan Mr. Sen is a 53yo M with PMH of ITP since 2000, HLD, GERD who presented as direct admit from the cancer center due to acute thrombocytopenia. 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 Refractory ITP, thrombocytopenia - Decadron 40 mg daily - heme/onc following -> Nplate injections during stay (Tuesdays) -> Plan to receive Rhogam (per heme) today - Follow platelets every 24 hours - platelets 3 today, patient optimistic - general surgery following -> will go for splenectomy when plt count >50k or >20k if transfusing platelets perioperatively -> Will also require immunizations after splenectomy Nose and gum bleeding - Sec to ITP. - No nose bleeding today - Required amicar (5mg IV) for the bleeding early last week. GERD - Continue Zantac 150 mg PO BID HLD - Continue low fat diet DVT: contraindicated due to low risk of clotting and very high risk of bleeding from chemical/mechanical anticoagulation Dispo: med/surg, pending improvement in platelet levels Code: FULL Resident Physician Supervision Note: I interviewed and examined the patient. Discussed with Dr. Renae and agree with findings and plan as documented in the note. Any exceptions or clarifications are listed here: None Documented By: Juan Askew feeling ok was anxious about when next medication coming vitals noted nad breathing unlabored no pallor or icterus, ongoing bruising but no overtly new sites refractory ITP -ongoing inpt due to risk of bleed requiring urgent intervention, as well as prior lability of platelets making it possible he could have counts high enough for splenectomy then miss a window of opportunity. -ongoing med management as per heme/onc - winro today -?taper steroids since they don't seem to be helping vs keep at high dosing since he's been so refractory -continue to follow closely otherwise as above Resident Tracking Resident Involvement: Resident Care Provided Care Provided: Adult Hospital Medicine
--- NOTE | 2018-06-09 14:13 | HEME/ONC PROGRESS NOTE ---
DATE: 06/09/2018 DIAGNOSIS: Refractory ITP. SUBJECTIVE: Yayo was seen and examined at bedside again today. As you know, he has received multiple courses of immunomodulating agents. I ordered anti-D yesterday, but unfortunately drug was not available and therefore needed to be ordered to be administered at 3:00 this afternoon. Again, he feels well, offers no complaints. No cutaneous or external signs of hemorrhage. PHYSICAL EXAMINATION: GENERAL: Yayo is in no acute distress. VITAL SIGNS: Temperature 36.6, pulse 64, respiration 17, blood pressure 123/80. SKIN: A few scattered ecchymoses, otherwise no evidence of petechiae. HEENT: Clear. NECK: Supple. HEART: Regular rate and rhythm. LUNGS: Clear to auscultation. ABDOMEN: Soft, nontender, nondistended. EXTREMITIES: No clubbing, cyanosis or edema. NEUROLOGIC: Grossly intact. LABORATORY DATA: WBC count 16,890, hemoglobin 13.4, platelet count 3000. IMPRESSION: Refractory immune thrombocytopenia. PLAN: In summary, Yayo is a pleasant 53-year-old gentleman now on hospital day 17 with refractory ITP. He will receive WinRho 75 mcg/kg today. Unfortunately, drug was not available when ordered yesterday and should be administered by 3:00 this afternoon. Platelet count presently 3000. He is otherwise doing well. Again, long-term is to proceed with a laparoscopic splenectomy once his platelet count remains sustained over 20,000. Continue monitoring daily counts. Will continue to round on him daily. Thank you again for your patience and assistance in this gentleman's care.
[2018-06-09] MEDS ORDERED: [UNRECOGNIZED DRUG - OTHER] IV SCH ×4 (15:00)
[2018-06-09] MEDS ORDERED: IMMUNE GLOBULIN IV SCH ×4 (15:00)
[2018-06-09] MEDS ORDERED: MoRPHine SULFATE 4 MG/ML 1 ML CARP\\VIAL IV STA (17:23)
[2018-06-09] MEDS ORDERED: MoRPHine SULFATE 2 MG/ML CARP IV PRN (17:30)
[2018-06-09] MEDS ORDERED: MEPERIDINE HCL 25 MG/ML CARP IV STA ×2 (17:41→17:48)
[2018-06-09] MEDS ORDERED: MEPERIDINE HCL 25 MG/ML CARP IV PRN (17:45)
[2018-06-09 17:49] LABS: HEMATOCRIT 40.7 % (42-52); HEMOGLOBIN 13.5 g/dL (14.0-18.0)
[2018-06-09 17:54] LABS: RETIC COUNT % 1.4 % (0.5-2.0)
--- NOTE | 2018-06-09 18:29 | Progress Note ---
Progress Note Date of Service Jun 09, 2018. (Lucien Squires M.D.) Progress Note Call a call from the nurse approx 2hrs after rhogam was given that the patient started experiencing severe diffuse joint and back pains along with chills and rigors. On my exam patient confirms the above. No baseline UA was done, but a UA done 30min after the Rhoam shot showed hematuria. From my reading there is a concern from intravascular hemolysis. Dr Marcus was notified and Labs for Retic Count, LDH, Hemoglobin, Haptoglobin and Bilirubin were also performed. I have also ordered Q1H vital signs until 3am. Pt had zero pain control from 4mg IV morphine and was given at the advice of Dr. Marcus two doses of 25mg IV Demerol (Meperidine) which controlled the pain. A schedule of 50mg IV Demerol Q3H PRN was given for moderate pain and 25mg IV Demerol Q3H Severe Pain. Pt stated his pain was tolerated. Dr. Marcus was updated with the above information and told the retic count was normal and LDH was elevated. Bilirubin pending. Will recheck CBC and Retic count in the AM. Will sign this out to the night resident. (Lucien Squires M.D.) Resident Involvement: Powder Hand Coverage Note Care Provided: Adult Hospital Medicine (Lucien Squires M.D.)
[2018-06-09] MEDS: MEPERIDINE HCL 25 MG/ML CARP IV PRN (19:26)
[2018-06-09] MEDS ORDERED: HYDROmorphone INJ 1 MG/ML SYR IV STA (20:30)
[2018-06-09] MEDS: MEPERIDINE HCL 50 MG/ML CARP IV PRN ×2 (20:39→23:06)
[2018-06-10] VITALS (9 sets, daily range): BP systolic 112–152; BP diastolic 70–88; PULSE 54–63; TEMP 36.4–36.7; O2SAT 89–98
[2018-06-10] MEDS: MEPERIDINE HCL 50 MG/ML CARP IV PRN ×4 (02:02→17:27)
[2018-06-10] MEDS: DEXAMETHASONE 4 MG TAB PO SCH (07:53)
[2018-06-10] MEDS: KETOCONAZOLE 2% CR 15 GM TUBE EXT SCH (07:54)
[2018-06-10] MEDS: RANITIDINE HCL 150 MG TAB PO SCH ×2 (07:54→20:25)
[2018-06-10 07:55] LABS: HEMATOCRIT 40.2 % (42-52); HEMOGLOBIN 13.5 g/dL (14.0-18.0); MEAN CELL VOLUME 89.9 fL (80-100); MEAN CORPUSCULAR HEMOGLOBIN 30.2 pg (25-34); MEAN CORPUSCULAR HGB CONC 33.6 g/dl (32-36); RED CELL DISTRIBUTION WIDTH CV 15.1 % (11.5-14.5); RED CELL DISTRIBUTION WIDTH SD 49.4 fL (36.4-46.3); WHITE BLOOD COUNT 23.63 K/uL (4.8-10.8)
[2018-06-10 08:04] LABS: PLATELET COUNT 7 K/uL (130-400)
[2018-06-10 08:05] LABS: BASO % 0.2 %; BASO ABS # 0.04 K/uL (0-0.2); EOS ABS # 0.01 K/uL (0-0.5); IG# 1.53 K/uL (0.00-0.02); LYMPH % 7.5 %; LYMPH ABS # 1.77 K/uL (1.2-3.4); NEUT % 77.8 %; NEUT ABS # 18.38 K/uL (1.4-6.5); NUCLEATED RED BLOOD CELL ABS 0.03 K/uL (0-0); RETIC COUNT % 1.4 % (0.5-2.0)
--- NOTE | 2018-06-10 08:50 | HEME/ONC PROGRESS NOTE ---
DATE: 06/10/2018 DIAGNOSIS: Refractory ITP. SUBJECTIVE: Yayo was seen and examined at bedside. Notes few more ecchymoses on his upper extremities and previously seen. He feels relatively well, had a rough night after receiving WinRho, developed rigors, arthralgias and myalgias. Administered several courses of morphine and Demerol which have been helpful. Platelet count now 7000. Hopefully, the symptom he is exhibiting equates a positive immune response. PHYSICAL EXAMINATION: GENERAL: Yayo is awake, alert and appropriate. VITAL SIGNS: Temperature 36.7, pulse 61, respiratory rate 18, blood pressure 144/88. SKIN: Again, multiple ecchymoses noted in the upper extremities bilaterally. HEENT: Throat is clear. NECK: Supple. HEART: Regular rate and rhythm. LUNGS: Clear to auscultation. ABDOMEN: Soft, nontender, nondistended. EXTREMITIES: No clubbing, cyanosis or edema. NEUROLOGIC: Intact. LABORATORY DATA: WBC count 23,630, hemoglobin 13.5, platelet count 7000. IMPRESSION: Refractory immune thrombocytopenia. PLAN: Continue observation. We will discuss possibly incorporating another dose of Nplate with Dr. Wilhelm. Would like to give him another 24 hours to allow [employer] to work. Continue treating pain as prescribed. Continue daily counts until discharge. Thank you again for assisting us in the care of this very complex case.
--- NOTE | 2018-06-10 10:30 | Family Medicine Progress Note ---
Progress Note Date of Service Jun 10, 2018. Subjective Pt evaluation today including: conversation w/ patient, conversation w/ family , physical exam, lab review Pain: Improving from yesterday, settling to back PO Intake: Tolerating well Voiding: no voiding problems Patient in good spirits this morning. Still c/o joint pain but this is improving , is not severe, and he feels the pain is gradually settling. Constitutional: No fever, No chills ENT: No hearing loss, No dental problems Respiratory: No hemoptysis Cardiovascular: No chest pain, No edema Abdomen: No GI bleeding Musculoskeletal: + joint pain, + muscle pain Male : No hematuria Heme: + abnormal bleeding/bruising, + clotting problems Skin: + bleeding All Other Systems: Reviewed and Negative Medications Current Inpatient Medications Medications (Trade) Dose Ordered Sig/Kristine Route Start Time Stop Time Status Last Admin Dose Admin Acetaminophen (Tylenol Tab) 650 mg Q4H PRN PO 05/22/18 17:15 06/21/18 17:14 Al Hydrox/Mg Hydrox/Simethicone (Maalox Max Susp) 15 ml Q4H PRN PO 05/22/18 17:15 06/21/18 17:14 06/02/18 18:18 15 ML Ondansetron HCl (Zofran Inj) 4 mg Q6H PRN IV 05/22/18 17:15 06/21/18 17:14 05/22/18 18:54 4 MG Diphenhydramine HCl (Benadryl Cap) 25 mg Q4HWA PRN PO 05/22/18 18:00 06/21/18 17:59 Ranitidine HCl (zANTac TAB) 150 mg BID PO 05/22/18 21:00 06/21/18 17:59 06/10/18 07:54 150 MG Dexamethasone (Decadron Tab) 40 mg DAILY PO 05/29/18 09:00 06/28/18 08:59 06/10/18 07:53 40 MG Oxymetazoline HCl (Afrin 0.05% Nasal [place]) 1 sprays Q8H PRN NA 06/03/18 12:30 07/03/18 12:29 06/03/18 12:43 1 SPRAYS Eszopiclone (Lunesta Tab) 1 mg HSZ PRN PO 06/04/18 14:00 07/04/18 13:59 Ketoconazole (Nizoral 2% Crm) 1 appln DAILY EXT 06/04/18 21:45 06/14/18 21:44 06/10/18 07:54 1 APPLN Morphine Sulfate (MoRPHine SULFATE INJ) 2 mg Q2H PRN IV 06/09/18 17:30 06/23/18 17:29 Meperidine HCl (Demerol Inj) 50 mg Q3H PRN IV 06/09/18 18:15 06/23/18 17:44 06/10/18 06:35 50 MG Meperidine HCl (Demerol Inj) 25 mg Q3H PRN IV 06/09/18 18:30 06/23/18 18:29 06/09/18 19:26 25 MG Objective Vital Signs Date Time Temp Pulse Resp B/P (MAP) Pulse Ox O2 Delivery O2 Flow Rate FiO2 06/10/18 08:00 Room Air 06/10/18 06:45 36.7 61 18 144/88 (106) 98 Room Air 06/10/18 03:47 20 125/71 (89) 95 Room Air 06/10/18 03:22 96 Room Air 06/10/18 02:51 57 20 127/74 (91) 89 06/10/18 01:53 56 20 130/78 (95) 94 Room Air 06/10/18 00:47 58 16 120/70 (87) 96 06/10/18 00:30 Room Air 06/10/18 00:03 54 112/70 (84) 95 06/09/18 22:30 51 20 149/76 (100) 98 Room Air 06/09/18 20:30 49 16 154/78 (103) 95 Room Air 06/09/18 19:45 36.4 53 20 161/77 (105) 95 Room Air 06/09/18 18:13 36.5 53 24 175/89 (117) 95 Room Air 06/09/18 17:12 36.4 64 24 187/99 (128) 98 Room Air 06/09/18 16:00 Room Air 06/09/18 15:27 36.5 70 16 122/70 (87) 96 Room Air Physical Exam General Appearance: WD/WN, no apparent distress Eyes: PERRL, EOMI ENT: hearing grossly normal Neck: no carotid bruits, trachea midline Respiratory/Chest: lungs clear, normal breath sounds, no respiratory distress, no accessory muscle use Cardiovascular: regular rate, rhythm, no edema, no murmur Abdomen: normal bowel sounds, non tender, soft Extremities: non-tender, no pedal edema, no calf tenderness Neurologic/Psychiatric: no motor/sensory deficits, alert, normal mood/affect, oriented x 3 Skin: normal color, + pertinent finding (bruises of various stages of healing across body) Laboratory Results Last Resulted 06/10/18 06:59 Red Blood Count 4.47, Mean Corpuscular Volume 89.9, Mean Corpuscular Hemoglobin 30.2, Mean Corpuscular Hemoglobin Concent 33.6, Neutrophils (%) (Auto) 77.8, Lymphocytes (%) (Auto) 7.5, Monocytes (%) (Auto) 8.0, Eosinophils (%) (Auto) 0.0 , Basophils (%) (Auto) 0.2, Neutrophils # (Auto) 18.38, Lymphocytes # (Auto) 1.77, Monocytes # (Auto) 1.90, Eosinophils # (Auto) 0.01, Basophils # (Auto) 0.04 Last Resulted 05/24/18 07:00 Assessment and Plan Mr. Sen is a 53yo M with PMH of ITP since 2000, HLD, GERD who presented as direct admit from the cancer center due to acute thrombocytopenia. 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 Refractory ITP, thrombocytopenia - Decadron 40 mg daily - heme/onc following -> Nplate injections during stay -> Received rhogam yesterday, which induced likely intravascular hemolysis, resulting in extreme pain in joints. Required meperidine and dilauded - Follow platelets every 24 hours - platelets 7 today, patient optimistic. Will recheck tonight. - general surgery following -> will go for splenectomy when plt count >50k or >20k if transfusing platelets perioperatively -> Will also require immunizations after splenectomy Nose and gum bleeding - Sec to ITP. - No nose bleeding today - Required amicar (5mg IV) for the bleeding early last week. GERD - Continue Zantac 150 mg PO BID HLD - Continue low fat diet DVT: contraindicated due to low risk of clotting and very high risk of bleeding from chemical/mechanical anticoagulation Dispo: med/surg, pending improvement in platelet levels Code: FULL Resident Physician Supervision Note: I interviewed and examined the patient. Discussed with Dr. Renae and agree with findings and plan as documented in the note. Any exceptions or clarifications are listed here: None Documented By: Juan Askew pain related to winrho improving. notes that was worse than POW training. vitals noted nad breathing unlabored no pallor or icterus, stable bruising refractory ITP -ongoing aggressive med management and close supervision nosebleeds - now stable GERD - no complaints otherwise as above hopefully platelets will rise Resident Tracking Resident Involvement: Resident Care Provided Care Provided: Adult Hospital Medicine
[2018-06-10 19:39] LABS: HEMATOCRIT 38.5 % (42-52); HEMOGLOBIN 12.8 g/dL (14.0-18.0); MEAN CELL VOLUME 89.7 fL (80-100); MEAN CORPUSCULAR HEMOGLOBIN 29.8 pg (25-34); MEAN CORPUSCULAR HGB CONC 33.2 g/dl (32-36); PLATELET COUNT 8 K/uL (130-400); RED CELL DISTRIBUTION WIDTH CV 15.8 % (11.5-14.5); RED CELL DISTRIBUTION WIDTH SD 51.3 fL (36.4-46.3); WHITE BLOOD COUNT 18.67 K/uL (4.8-10.8)
[2018-06-10 19:40] LABS: BASO % 0.2 %; BASO ABS # 0.03 K/uL (0-0.2); EOS % 0.1 %; EOS ABS # 0.01 K/uL (0-0.5); IG# 1.38 K/uL (0.00-0.02); LYMPH % 5.3 %; LYMPH ABS # 0.99 K/uL (1.2-3.4); MONO % 7.1 %; MONO ABS # 1.32 K/uL (0.11-0.59); NEUT % 79.9 %; NEUT ABS # 14.94 K/uL (1.4-6.5)
[2018-06-10] MEDS: MEPERIDINE HCL 25 MG/ML CARP IV PRN (21:27)
[2018-06-11] MEDS: MEPERIDINE HCL 50 MG/ML CARP IV PRN ×5 (00:08→15:58)
[2018-06-11 07:46] VITALS: BP 117/85; PULSE 106; TEMP 36.5; O2SAT 95
[2018-06-11 07:50] LABS: BASO % 0.1 %; BASO ABS # 0.03 K/uL (0-0.2); EOS % 0.3 %; EOS ABS # 0.07 K/uL (0-0.5); HEMATOCRIT 38.4 % (42-52); HEMOGLOBIN 12.9 g/dL (14.0-18.0); IG# 1.26 K/uL (0.00-0.02); LYMPH % 11.6 %; LYMPH ABS # 2.38 K/uL (1.2-3.4); MEAN CELL VOLUME 89.7 fL (80-100); MEAN CORPUSCULAR HEMOGLOBIN 30.1 pg (25-34); MEAN CORPUSCULAR HGB CONC 33.6 g/dl (32-36); MONO % 8.2 %; MONO ABS # 1.67 K/uL (0.11-0.59); NEUT % 73.6 %; NEUT ABS # 15.03 K/uL (1.4-6.5); PLATELET COUNT 4 K/uL (130-400); RED CELL DISTRIBUTION WIDTH CV 16.2 % (11.5-14.5); WHITE BLOOD COUNT 20.44 K/uL (4.8-10.8)
[2018-06-11] MEDS: RANITIDINE HCL 150 MG TAB PO SCH (08:15)
[2018-06-11] MEDS: KETOCONAZOLE 2% CR 15 GM TUBE EXT SCH (08:16)
[2018-06-11] MEDS: DEXAMETHASONE 4 MG TAB PO SCH (08:16)
--- NOTE | 2018-06-11 10:40 | Family Medicine Progress Note ---
Progress Note Date of Service Jun 11, 2018. Subjective Pt evaluation today including: conversation w/ patient, physical exam, chart review, lab review Pain: Denies pain PO Intake: Tolerating well Voiding: no voiding problems Patient is discouraged this morning due to laboratory results. Patient expressed his frustration and wonders what the course of action is going to be. ENT: No unusual epistaxis, No dental problems Respiratory: No hemoptysis Cardiovascular: No chest pain Abdomen: No pain, No GI bleeding Male : No hematuria Psychiatric: + anhedonism Skin: + new/changing skin lesions All Other Systems: Reviewed and Negative Medications Current Inpatient Medications Medications (Trade) Dose Ordered Sig/Kristine Route Start Time Stop Time Status Last Admin Dose Admin Acetaminophen (Tylenol Tab) 650 mg Q4H PRN PO 05/22/18 17:15 06/21/18 17:14 Al Hydrox/Mg Hydrox/Simethicone (Maalox Max Susp) 15 ml Q4H PRN PO 05/22/18 17:15 06/21/18 17:14 06/02/18 18:18 15 ML Ondansetron HCl (Zofran Inj) 4 mg Q6H PRN IV 05/22/18 17:15 06/21/18 17:14 05/22/18 18:54 4 MG Diphenhydramine HCl (Benadryl Cap) 25 mg Q4HWA PRN PO 05/22/18 18:00 06/21/18 17:59 Ranitidine HCl (zANTac TAB) 150 mg BID PO 05/22/18 21:00 06/21/18 17:59 06/11/18 08:15 150 MG Dexamethasone (Decadron Tab) 40 mg DAILY PO 05/29/18 09:00 06/28/18 08:59 06/11/18 08:16 40 MG Oxymetazoline HCl (Afrin 0.05% Nasal [place]) 1 sprays Q8H PRN NA 06/03/18 12:30 07/03/18 12:29 06/03/18 12:43 1 SPRAYS Eszopiclone (Lunesta Tab) 1 mg HSZ PRN PO 06/04/18 14:00 07/04/18 13:59 Ketoconazole (Nizoral 2% Crm) 1 appln DAILY EXT 06/04/18 21:45 06/14/18 21:44 06/11/18 08:16 1 APPLN Morphine Sulfate (MoRPHine SULFATE INJ) 2 mg Q2H PRN IV 06/09/18 17:30 06/23/18 17:29 06/10/18 12:39 2 MG Meperidine HCl (Demerol Inj) 50 mg Q3H PRN IV 06/09/18 18:15 06/23/18 17:44 06/11/18 05:13 50 MG Meperidine HCl (Demerol Inj) 25 mg Q3H PRN IV 06/09/18 18:30 06/23/18 18:29 06/10/18 21:27 25 MG Objective Vital Signs Date Time Temp Pulse Resp B/P (MAP) Pulse Ox O2 Delivery O2 Flow Rate FiO2 06/11/18 07:46 36.5 106 20 117/85 (96) 95 Room Air 06/11/18 07:45 Room Air 06/10/18 23:15 36.6 56 18 152/77 (102) 96 Room Air 06/10/18 20:00 Room Air 06/10/18 16:00 Room Air 06/10/18 15:57 36.4 63 20 139/78 (98) 96 Room Air Physical Exam General Appearance: WD/WN, no apparent distress Eyes: PERRL ENT: hearing grossly normal Neck: trachea midline Respiratory/Chest: lungs clear, normal breath sounds, no respiratory distress, no accessory muscle use Cardiovascular: no edema, no murmur Abdomen: non tender, soft, + distended Extremities: non-tender, no pedal edema Neurologic/Psychiatric: alert, oriented x 3 Skin: + pertinent finding (Numerous bruises of various stages of healing across body) Laboratory Results Last Resulted 06/11/18 06:41 Red Blood Count 4.28, Mean Corpuscular Volume 89.7, Mean Corpuscular Hemoglobin 30.1, Mean Corpuscular Hemoglobin Concent 33.6, Neutrophils (%) (Auto) 73.6, Lymphocytes (%) (Auto) 11.6, Monocytes (%) (Auto) 8.2, Eosinophils (%) (Auto) 0.3, Basophils (%) (Auto) 0.1, Neutrophils # (Auto) 15.03, Lymphocytes # (Auto) 2.38, Monocytes # (Auto) 1.67, Eosinophils # (Auto) 0.07, Basophils # (Auto) 0.03 Last Resulted 05/24/18 07:00 Assessment and Plan Mr. Sen is a 53yo M with PMH of ITP since 2000, HLD, GERD who presented as direct admit from the cancer center due to acute thrombocytopenia. Discharged from [facility] four days [facility] with plt count of 54K, found to have plt 3K on readmission. Refractory ITP, thrombocytopenia - Decadron 40 mg daily - heme/onc following -> Nplate injections during stay -> Received rhogam this week, which induced likely intravascular hemolysis, resulting in extreme pain in joints. Required meperidine and dilaudid - Follow platelets every 24 hours - platelets 4 today, patient discouraged. Will defer to hematology for further management. - general surgery following -> will go for splenectomy when plt count >50k or >20k if transfusing platelets perioperatively -> Will also require immunizations after splenectomy Nose and gum bleeding - Sec to ITP. - No nose bleeding today - Required amicar (5mg IV) for the bleeding early last week. GERD - Continue Zantac 150 mg PO BID HLD - Continue low fat diet DVT: contraindicated due to low risk of clotting and very high risk of bleeding from chemical/mechanical anticoagulation Dispo: med/surg, pending improvement in platelet levels Code: FULL Resident Tracking Resident Involvement: Resident Care Provided Care Provided: Adult Hospital Medicine
--- NOTE | 2018-06-11 11:25 | Discharge Summary ---
Discharge Summary Date of Service Jun 11, 2018. Discharge Summary Admission Date: May 22, 2018 at 15:24 Discharge Date: Jun 11, 2018 Discharge Disposition: Acute care facility ([facility]) Principal Diagnosis: ITP Immunizations: Have You Had Influenza Vaccine: Unknown History of Tetanus Vaccine?: Unknown History of Pneumococcal: Unknown History of Hepatitis B Vaccine: Unknown Consultations: Surgery (06/05/18) Assessment & Plan: ITP, plt count 2k. agree with need for splenectomy when platelet count higher. plan for laparoscopic splenectomy when plt count >50k, or >20k if platelets available for transfusion perioperatively will need immunizations against pneumococcus, meningococcus, and HIB. risks reviewed surgery will follow peripherally, call me when plt count increases significantly or with questions or concerns Hematology/Oncology: Various interventions were tried (See hospital course below). Transfer to tertiary care facility on 06/11/18 for possible further surgical or hematological interventions. Medication Reconciliation Continued Medications: Dexamethasone (Dexamethasone) 4 Mg Tab 40 MG PO DAILY for 2 Days, #20 TAB take 40 mg daily for 2 days Discharge Exam Subjective Exam Pt evaluation today including: conversation w/ patient, physical exam, chart review, lab review Pain: Denies pain PO Intake: Tolerating well Voiding: no voiding problems Patient is discouraged this morning due to laboratory results. Patient expressed his frustration and wonders what the course of action is going to be. ENT: No unusual epistaxis, No dental problems Respiratory: No hemoptysis Cardiovascular: No chest pain Abdomen: No pain, No GI bleeding Male : No hematuria Psychiatric: + anhedonism Skin: + new/changing skin lesions All Other Systems: Reviewed and Negative Objective Exam General Appearance: WD/WN, no apparent distress Eyes: PERRL ENT: hearing grossly normal Neck: trachea midline Respiratory/Chest: lungs clear, normal breath sounds, no respiratory distress, no accessory muscle use Cardiovascular: no edema, no murmur Abdomen: non tender, soft, + distended Extremities: non-tender, no pedal edema Neurologic/Psychiatric: alert, oriented x 3 Skin: + pertinent finding (Numerous bruises of various stages of healing across body) Hospital Course Mr. Sen is a 53M with PMH of ITP since 2000, HLD, GERD who presented as direct admit from the [facility] due to acute thrombocytopenia. Mr Sen was recently discharged from [facility] for ITP on with a platelet count of 54K. At a regular follow up visit in the cancer center on 05/22/18 he found to have platelet count of 3K and was sent for readmission. The plan as discussed by primary team, heme/onc and surgery was for splenectomy once platelets reached above 20,000. Unfortunately despite the various interventions mentioned below the platelets have never gone above 10, 000. Hospital course is also notable for a persistently elevated WBC count which we assume to be reactive to the ITP. Current hospital course is remarkable for the following interventions: 05/22/18 - Readmission to [facility]. Pt was started on 60mg IV Methylprednisone BID. (from a home dose of 40mg daily Decadron) 05/22/18 - Pt received 100g of IVIG 05/23/18 - Pt received 2nd dose of 100mg IVIG 05/26/18 - Pt received 102.5mcg of Romiplastin 05/27/18 - Pt received 3rd dose of 100mg IVIG 05/28/18 - IV Methylprednisone was DC'ed and replaced with Decadron 40mg daily which was continued until day of discharge 06/02/18 - Pt received 200mcg of Romiplastin. 06/05/18 - Pt developed a nose bleed that didn't ti for 90 min, hemoglobin was stable but he was tasting drips of blood. Nosebleed was treated with 5mg IV Amicaproic Acid (Amicar), also with pinching the nose and touching chin to chest and resting legs on ground instead of bed. Pt has intermittent smaller nosebleeds throughout his stay - this episode started after a cough. We did call ENT which recommended a balloon nasal packing (Rhino Rocket) which thankfully did not need to be placed. Should a nosebleed start our ENT specialist deemed a RhinoRocket safe and recommended leaving the Rhino Rocket in place for 5 days. 06/09/18- Pt received 38,000 of WinRho and within 1-2 hours starting experience intractable muscle and joint pains with fevers and chills. There was a concern of developing intravascular hemolysis. Pt did have a positive UA for blood ( but did not have a baseline UA) and an elevated LDH. Bilirubin did not elevate and Hemoglobin did not drop perceptibly. Reticulocytes were also normal. Haptoglobin Pending. His pain was controlled with approx 75mg Meperidine Q3H for 12 hours. 06/11/18 - Discussed case with Dr. Marcus who recommended transfer to tertiary care facility for possible further intervention(s). Transfer accepted by Dr. Bowen at [facility] to bed 7253. Platelet Counts in the AM (in thousands): 05/23- 2K 05/24- 10K 05/25- 6K 05/26- 3 05/27- 2 05/28- 1 05/29- 10 7- 3 7 - 7 7 - 5 7 - 2 81 -2 8 - 1 83 - 2 84 - 2 8 - 3 86 - 5 8 - 3 8 - 8K 06/11 - 4K Per surgery , pt will also require standard post splenectomy immunizations. On recent previous admission (May 2018) - Platelet count improved with 10gm IV Decadron and 100g IVIG on 05/17. Discharged with platelet count of 54,000. - Anaplasmosis (Titres low IGG Positive), Lyme (IGG two bands positive, IGM negative), Parvovirus (IGG Positive, IGM negative) - HIV, Ehrlichia, Levy, CMV ALL NEGATIVE. - HCV negative per outside record. - CT Abdo Pelvis normal, no splenomegaly. Resident Physician Supervision Note: I interviewed and examined the patient. Discussed with Oc Mason and agree with findings and plan as documented in the note. Any exceptions or clarifications are listed here: None Documented By: Juan Askew feeling about the same after d/w heme/onc - felt it best to transfer to tertiary ?tertiary hematology interventions, and more importantly, better ability to perform high risk splenectomy if needed vitals noted nad breathing unlabored no pallor or icterus refractory ITP - for transfer to [place] Total Time Spent: Greater than 30 minutes (32 minutes) This includes examination of the patient, discharge planning, medication reconciliation, and communication with other providers. Discharge Instructions Please refer to the electronic Patient Visit Report (Discharge Instructions) for additional information. Additional Copies To Clark Chaparro M.D. Resident Involvement: Resident Care Provided Care Provided: [facility]
--- NOTE | 2018-06-11 12:02 | Discharge Instructions ---
Discharge Instructions Date of Service Jun 11, 2018. Admission Reason for Admission: ITP Discharge Discharge Diagnosis / Problem: Refractory ITP Discharge Goals Goal(s): Improve disease control, Therapeutic intervention, Prevent Disease Progression Activity Recommendations Activity Level: Up Ad Светлана Shower/Bathe: no limitations . Additional Information Patient informed of condition: Yes Advance Directives: No DNR: No Level of Care: Other Communicable Disease: No Prognosis: Stable Bernal Catheter: No Instructions / Follow-Up Instructions / Follow-Up During this admission you were evaluated and treated for low platelets. Hematology had been trying to use Nplate and WinRho to help raise your platelet levels so that you can have your spleen removed. Due to the lack of expected response in the time you have been in hospital, it has been decided you will be transferred to [place] for further specialized care. Current Hospital Diet Patient's current hospital diet: Regular Diet Discharge Diet Recommended Diet: Regular Diet Pending Studies Studies pending at discharge: yes (Haptoglobin) List of pending studies: Haptoglobin level Medical Emergencies . Who to Call and When: Medical Emergencies: If at any time you feel your situation is an emergency, please call 911 immediately. . Non-Emergent Contact Non-Emergency issues call your: Primary Care Provider . . "Provider Documentation" section prepared by Gissell Renae. . Core Measure Problem Core Measures: None
[2018-06-11] MEDS ORDERED: NURSING VERBAL MED ORDER ONE (12:15)
[2018-06-11 13:46] VITALS: BP 117/85; PULSE 106; TEMP 36.5; O2SAT 95
[2018-06-11 14:55] VITALS: BP 125/72; PULSE 73; TEMP 36.4; O2SAT 94
[2018-06-11] MEDS: MEPERIDINE HCL 25 MG/ML CARP IV PRN (16:00)
--- NOTE | 2018-06-12 17:34 | Progress Note ---
Progress Note Date of Service Jun 12, 2018. Progress Note To whom it may concern: This not is to serve as a work excuse for GISSELLE GRAY. Mr. Gray was a patient at [facility] from May 22, 2018 to June 10, 2018. Should you have any questions regarding his length of stay, please contact HIM/ Medical records via the hospital front office director at [phone]. Thank you for your time. Sincerely, Gissell Renae MD Resident Physician, PGY2 [facility]
== END 2018-06-11 16:04 | disposition short-term general hospital (02) | DRG 813 ==
LOC: C.MS2W 15:24
PROVIDERS: ADMIT Family Medicine; ATTEND Family Medicine
DX: D69.3 Immune thrombocytopenic purpura (principal); D72.829 Elevated white blood cell count, unspecified; R04.0 Epistaxis; T50.Z15A Adverse effect of immunoglobulin, initial encounter; D75.89 Other specified diseases of blood and blood-forming organs; R50.9 Fever, unspecified; M25.50 Pain in unspecified joint; R31.9 Hematuria, unspecified; K21.9 Gastro-esophageal reflux disease without esophagitis; Z79.52 Long term (current) use of systemic steroids

== ENCOUNTER → 2018-05-22 | Outpatient (CLI) | payer OTHER ==
[~2018-05-22] MED LIST: DXM4 PO
[2018-05-22 14:22] LABS: HEMATOCRIT 41.8 % (42-52); HEMOGLOBIN 14.6 g/dL (14.0-18.0); MEAN CORPUSCULAR HGB CONC 34.9 g/dl (32-36); PLATELET COUNT 2 K/uL (130-400); RED CELL DISTRIBUTION WIDTH CV 13.3 % (11.5-14.5); RED CELL DISTRIBUTION WIDTH SD 41.7 fL (36.4-46.3); WHITE BLOOD COUNT 11.82 K/uL (4.8-10.8)
[2018-05-22 14:24] LABS: BASO % 0.3 %; BASO ABS # 0.03 K/uL (0-0.2); EOS % 1.4 %; EOS ABS # 0.16 K/uL (0-0.5); IG# 0.39 K/uL (0.00-0.02); LYMPH % 33.6 %; LYMPH ABS # 3.97 K/uL (1.2-3.4); MONO % 6.3 %; MONO ABS # 0.74 K/uL (0.11-0.59); NEUT % 55.1 %; NEUT ABS # 6.53 K/uL (1.4-6.5)
== END | disposition home or self-care (01) ==
LOC: C.LAB 12:49
PROVIDERS: ATTEND Family Medicine
DX: D69.3 Immune thrombocytopenic purpura (principal)